=== PATIENT | male | born 1955 | race Caucasian/White ===

== ENCOUNTER 2018-12-12 09:15 | Observation (INO) | payer OTHER, SELFPAY ==
[2018-12-12] VITALS (21 sets, daily range): BP systolic 140–172; BP diastolic 58–109; PULSE 54–86; RESP 14–21; TEMP 36.4–36.9; O2SAT 95–100; BMI 29.3; BMI 30.2; BMI 30.3
--- NOTE | 2018-12-12 09:19 | EKG12_ITS ---
Test Reason : UNRESPONSIVE Blood Pressure : / mmHG Vent. Rate : 065 BPM Atrial Rate : 065 BPM P-R Int : 174 ms QRS Dur : 098 ms QT Int : 412 ms P-R-T Axes : 042 -13 -06 degrees QTc Int : 428 ms Normal sinus rhythm Minimal voltage criteria for LVH, may be normal variant Inferior infarct , age undetermined, cannot be excluded Abnormal ECG Confirmed by SAMINA PACKER, AMIRA ([id number]), business editor SIDRA SHARMA ([id number] on 12/14/2018 6:35:38 AM Referred By: Dom Esparza Confirmed By:AMIRA HAAS MD
--- NOTE | 2018-12-12 09:19 | CT_ITS ---
STUDY: CTA OF THE BRAIN REASON FOR EXAM: Male, 63 years old. Possible stroke/TIA. RADIATION DOSAGE (If Supplied By Facility): CTDIvol = ( 28.18 ) mGy, DLP = ( 726.83 ) mGycm TECHNIQUE: CT angiography was performed with a multi-detector CT scanner. Data acquisition was obtained from the skull base through the vertex following intravenous administration of 100ml IV Isovue 300. MIP images were reconstructed from the axial data set. Post-processing of the angiographic images was performed, with multiplanar reformation and 3D reconstruction. Individualized dose optimization techniques were used for this CT. COMPARISON: None. FINDINGS: Normal bilateral petrous carotid arteries. Normal right cavernous carotid artery with a normal supraclinoid bifurcation. Normal left cavernous carotid artery with a normal supraclinoid bifurcation. Normal right A1 segments of the anterior cerebral artery. Normal left A1 segments of the anterior cerebral artery. Normal intact anterior communicating artery (ACOM). Normal bilateral A2 segments of the anterior cerebral arteries. Normal right M1 and M2 segments of the middle cerebral arteries, with a normal M1 bifurcation. Normal left M1 and M2 segments of the middle cerebral arteries, with a normal M1 bifurcation. Normal right posterior communicating artery (PCOM). Normal left posterior communicating artery (PCOM). Normal bilateral vertebral arteries. Normal basilar artery with a normal basilar bifurcation. The visualized bilateral superior cerebellar (SCA) arteries are normal. Normal bilateral P1, P2 and visualized P3 segments of the posterior cerebral arteries. There is no demonstrated aneurysm of the [place]. There is no demonstrated abnormality of the visualized brain. IMPRESSION: Normal [place] without a demonstrated aneurysm or hemodynamically significant stenosis. N.B. : The above information has been verbally conveyed by Nilo Recio to Sherman Carbone on 12/12/2018 09:51:00 (ET). Electronically Signed: Nilo Recio, at 9:51 EDT , Service support , STUDY: CTA NECK WITH CONTRAST REASON FOR EXAM: Male, 63 years old. TIA/stroke. RADIATION DOSAGE (If Supplied By Facility): CTDIvol = ( 28 ) mGy, DLP = ( 726.83 ) mGycm TECHNIQUE: CT angiography with multi-detector data acquisition was performed from the aortic arch to the skull base following intravenous administration of 100ml IV Isovue 300. MIP images were reconstructed from the axial data set. Post-processing of the angiographic images was performed, with multiplanar reformation and 3D reconstruction. Individualized dose optimization techniques were used for this CT. COMPARISON: None. FINDINGS: AORTIC ARCH: Normal visualized aortic arch. Normal origins of the brachiocephalic, left common carotid, and left subclavian arteries. RIGHT CAROTID ARTERIES: Normal right common carotid artery (CCA). Normal right common carotid bulb. Normal origin of the right internal carotid (ICA) artery without a hemodynamically significant stenosis. Normal visualized cervical portion of the right internal carotid artery. Normal origin of the right external carotid artery (ECA). LEFT CAROTID ARTERIES: Normal left common carotid artery (CCA). Normal left common carotid bulb. Normal origin of the left internal carotid (ICA) artery without a hemodynamically significant stenosis. Normal visualized cervical portion of the left internal carotid artery. Normal origin of the left external carotid artery (ECA). VERTEBRAL ARTERIES: There is enhancement within the bilateral vertebral arteries with a small right vertebral artery, and a dominant left vertebral artery. CT/CTA Neck W/WO Contrast IMPRESSION: Normal bilateral cervical carotid and vertebral arteries. N.B. : The above information has been verbally conveyed by Nilo Recio to Sherman Carbone on 12/12/2018 09:51:00 (ET). Electronically Signed: Nilo Recio, at 9:52 EDT , Service support ,
--- NOTE | 2018-12-12 09:19 | CT_ITS ---
STUDY: CT BRAIN WITHOUT CONTRAST REASON FOR EXAM: Male, 63 years old. Possible stroke. RADIATION DOSAGE (If Supplied By Facility): CTDIvol = ( 44.99 ) mGy, DLP = ( 798.92 ) mGycm TECHNIQUE: Transaxial CT imaging of the brain was performed without administration of intravenous contrast material. Individualized dose optimization techniques were used for this CT. COMPARISON: No relevant priors. FINDINGS: Normal soft tissue structures. Normal calvarium. Normal size ventricles and extra-axial spaces for the patient's age. Normal white matter tracts of the cerebral hemispheres. Normal basal ganglia and thalami. Normal brainstem. Normal cerebellum. There is no intracranial hemorrhage. There are no findings of an acute ischemic infarction. Normal visualized paranasal sinuses. CT/Brain/Head without Contrast IMPRESSION: Normal unenhanced CT scan of the brain. N.B. : The above information has been verbally conveyed by Nilo Recio to Sherman Carbone on 12/12/2018 09:34:48 (ET). Electronically Signed: Nilo Recio, at 9:36 EDT , Service support ,
--- NOTE | 2018-12-12 09:19 | CT_ITS ---
STUDY: CTA OF THE BRAIN REASON FOR EXAM: Male, 63 years old. Possible stroke/TIA. RADIATION DOSAGE (If Supplied By Facility): CTDIvol = ( 28.18 ) mGy, DLP = ( 726.83 ) mGycm TECHNIQUE: CT angiography was performed with a multi-detector CT scanner. Data acquisition was obtained from the skull base through the vertex following intravenous administration of 100ml IV Isovue 300. MIP images were reconstructed from the axial data set. Post-processing of the angiographic images was performed, with multiplanar reformation and 3D reconstruction. Individualized dose optimization techniques were used for this CT. COMPARISON: None. FINDINGS: Normal bilateral petrous carotid arteries. Normal right cavernous carotid artery with a normal supraclinoid bifurcation. Normal left cavernous carotid artery with a normal supraclinoid bifurcation. Normal right A1 segments of the anterior cerebral artery. Normal left A1 segments of the anterior cerebral artery. Normal intact anterior communicating artery (ACOM). Normal bilateral A2 segments of the anterior cerebral arteries. Normal right M1 and M2 segments of the middle cerebral arteries, with a normal M1 bifurcation. Normal left M1 and M2 segments of the middle cerebral arteries, with a normal M1 bifurcation. Normal right posterior communicating artery (PCOM). Normal left posterior communicating artery (PCOM). Normal bilateral vertebral arteries. Normal basilar artery with a normal basilar bifurcation. The visualized bilateral superior cerebellar (SCA) arteries are normal. Normal bilateral P1, P2 and visualized P3 segments of the posterior cerebral arteries. There is no demonstrated aneurysm of the [place]. There is no demonstrated abnormality of the visualized brain. IMPRESSION: Normal [place] without a demonstrated aneurysm or hemodynamically significant stenosis. N.B. : The above information has been verbally conveyed by Nilo Recio to Sherman Carbone on 12/12/2018 09:51:00 (ET). Electronically Signed: Nilo Recio, at 9:51 EDT , Service support , STUDY: CTA NECK WITH CONTRAST REASON FOR EXAM: Male, 63 years old. TIA/stroke. RADIATION DOSAGE (If Supplied By Facility): CTDIvol = ( 28 ) mGy, DLP = ( 726.83 ) mGycm TECHNIQUE: CT angiography with multi-detector data acquisition was performed from the aortic arch to the skull base following intravenous administration of 100ml IV Isovue 300. MIP images were reconstructed from the axial data set. Post-processing of the angiographic images was performed, with multiplanar reformation and 3D reconstruction. Individualized dose optimization techniques were used for this CT. COMPARISON: None. FINDINGS: AORTIC ARCH: Normal visualized aortic arch. Normal origins of the brachiocephalic, left common carotid, and left subclavian arteries. RIGHT CAROTID ARTERIES: Normal right common carotid artery (CCA). Normal right common carotid bulb. Normal origin of the right internal carotid (ICA) artery without a hemodynamically significant stenosis. Normal visualized cervical portion of the right internal carotid artery. Normal origin of the right external carotid artery (ECA). LEFT CAROTID ARTERIES: Normal left common carotid artery (CCA). Normal left common carotid bulb. Normal origin of the left internal carotid (ICA) artery without a hemodynamically significant stenosis. Normal visualized cervical portion of the left internal carotid artery. Normal origin of the left external carotid artery (ECA). VERTEBRAL ARTERIES: There is enhancement within the bilateral vertebral arteries with a small right vertebral artery, and a dominant left vertebral artery. CT/CTA Head W/WO Contrast IMPRESSION: Normal bilateral cervical carotid and vertebral arteries. N.B. : The above information has been verbally conveyed by Nilo Recio to Sherman Carbone on 12/12/2018 09:51:00 (ET). Electronically Signed: Nilo Recio, at 9:52 EDT , Service support ,
--- NOTE | 2018-12-12 09:21 | ED.VIS.STROK ---
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 Patient initially was talking when paramedics arrived. Per EMS his speech was normal. His speech became abnormal and only 1 word sentences. Patient is presently nonverbal. Prior similar symptoms: No Recent Illness/Hospitalization: No - Past Medical History (1) History of BPH Status: Acute (2) History of hypercholesterolemia Status: Acute Past Medical History - Allergies and Home Meds Allergies/Adverse Reactions: Allergies No Known Allergies Allergy (Verified 12/12/18 09:43) Primary Care Physician: Dom Esparza MD [Primary Care Provider] - Prior records reviewed: Yes Lives: Spouse/ Significant Other Smoking Status: Never smoker Review of Systems ROS: Unable to Obtain Physical Exam Vital Signs/Narrative: Vital Signs Temp Pulse Resp BP Pulse Ox 12/12/18 09:16 98 F 63 20 H 168/109 H 95 Inital Vital Signs reviewed: Yes - NIH Stroke Scale 1a Level of Consciousness: 2 1b LOC Questions (Score 2 if aphasic/stupor): 2 1c LOC Commands (Only score 1st attempt): 2 2 Best Gaze (If aphasic, use reflexive mvmts.): 1 4 Facial Palsy: 0 5 Motor Arm Right (UN = amputation/fusion): 3 5 Motor Arm Left: 3 6 Motor Leg Right: 3 6 Motor Leg Left: 3 7 Limb ataxia (Only + if out of proportion): UN 8 Sensory (Aphasia/stupor=0 or 1, coma=2): 1 9 Best Language: 3 10 Dysarthria (mute, coma=2, intubated=UN): 2 11 Extinction and Inattention (only scored if +): 2 Total Score: 27 General: Well nourished, Well developed Head: Normocephalic, Atraumatic Eyes: Perrl, EOMI, - - The right eye is deviated inward. Negative doll's eyes. There is no nystagmus.. Negative for: Pale conjunctiva, Scleral icterus ENT: Moist mucous membranes, No rhinorrhea, TM's clear Neck: Supple, Nontender, No lymphadenopathy, No JVD Cardiovascular: Regular rate, Regular rhythm, No murmurs, Normal S1, Normal S2 Respiratory: No distress, CTA bilaterally Abdomen: Soft, Nontender, Nondistended, Normal bowel sounds Rectal: Deferred Back: Normal Inspection Extremities: No edema Skin: Normal color, No rash, No Trauma. Negative for: Cyanosis, Diaphoresis, Jaundice Neurological: Normal DTR - TR is 1-2+ symmetric upper and lower extremity as well as right to left. There is no clonus or Babinski sign., - - There are inconsistencies in patient's neuro exam. She has a startle response. When either the right or left hand was held above his had initially there was a drop towards his face. His arm/hand on both sides avoided striking his face, however.. Negative for: Normal Sensation - Patient does not even then grimace to noxious stimuli. Psychological: - - Able to determine Diagnostic/Tx/Re-eval Impressions Brain CT 12/12/18 09:19 IMPRESSION: Normal unenhanced CT scan of the brain. N.B. : The above information has been verbally conveyed by Nilo Recio to [facility] on 12/12/2018 09:34:48 (ET). Electronically Signed: Nilo Recio, at 9:36 EDT , Service support , ADDENDUM: 12/12/1842 IMPRESSION: Normal unenhanced CT scan of the brain. N.B. : The above information has been verbally conveyed by Nilo Recio to [facility] on 12/12/2018 09:34:48 (ET). Electronically Signed: Nilo Recio, at 9:36 EDT , Service support , Head CTA 12/12/18 09:19 IMPRESSION: Normal bilateral cervical carotid and vertebral arteries. N.B. : The above information has been verbally conveyed by Nilo Recio to [facility] on 12/12/2018 09:51:00 (ET). Electronically Signed: Nilo Recio, at 9:52 EDT , Service support , Neck CTA 12/12/18 09:19 IMPRESSION: Normal bilateral cervical carotid and vertebral arteries. N.B. : The above information has been verbally conveyed by Nilo Singhnikkinguyễn to Sherman Carbone on 12/12/2018 09:51:00 (ET). Electronically Signed: Nilo Mckeonprince, at 9:52 EDT , Service support , 12/12/18 09:19 Brain/Head without Contrast [CT] Stat CTA Head W/WO Contrast [CT] Stat CTA Neck W/WO Contrast [CT] Stat Laboratory Results 12/12/18 12/12/18 12/12/18 09:20 09:20 09:20 WBC 5.0 RBC 5.09 Hgb 15.6 Hct 45.1 MCV 88.6 MCH 30.6 MCHC 34.6 RDW 12.3 RDW Differential 39.4 Plt Count 171 MPV 11.6 Immature Gran % (Auto) 0.000 Neut % (Auto) 65.8 Lymph % (Auto) 23.8 [place] % (Auto) 7.4 Eos % (Auto) 2.4 Baso % (Auto) 0.6 Absolute Neuts (auto) 3.3 Absolute Lymphs (auto) 1.19 Total Counted Not Reportable PT 12.5 INR 1.0 APTT 25.3 Sodium 142 Potassium 4.3 Chloride 108 H Carbon Dioxide 26.0 Anion Gap 8 BUN 33 H Creatinine 1.01 Estim Creat Clear Calc 84.30 Est GFR (MDRD) Af Amer 97 Est GFR (MDRD) Non-Af 80 BUN/Creatinine Ratio 32.7 H Glucose 99 Calcium 9.0 Troponin I < 0.015 POC Glucose 12/12/18 09:35 WBC RBC Hgb Hct MCV MCH MCHC RDW RDW Differential Plt Count MPV Immature Gran % (Auto) Neut % (Auto) Lymph % (Auto) [place] % (Auto) Eos % (Auto) Baso % (Auto) Absolute Neuts (auto) Absolute Lymphs (auto) Total Counted PT INR APTT Sodium Potassium Chloride Carbon Dioxide Anion Gap BUN Creatinine Estim Creat Clear Calc Est GFR (MDRD) Af Amer Est GFR (MDRD) Non-Af BUN/Creatinine Ratio Glucose Calcium Troponin I POC Glucose 89 - Rhythm Strip Rhythm Strip: Sinus Rhythm Rate: 70 Ectopy: None - EKG Initial EKG Interpretation: Sinus Rhythm - Ventricular rate 65. [place] interval 174 ms. Cures duration 98 ms. QT interval is normal. There are flipped T waves in lead III and aVF which may represent prior ischemia. Decreased anterior force noted. - Medical Decision Making Stroke Team Activated: No - Inconsistent exam and concern for possible conversion reaction Patient had slurred/garbled speech per coworkers. This was noted while he was performing his duties at work. His speech improved rapidly. Paramedics noted speech was normal and then deteriorated. Concern patient probably/may have had a TIA. Exam at this point is inconsistent. Stroke work-up was initiated including CTA of the head and neck. I did receive a call from Dr. Barillas that the unenhanced scan was normal. I was informed at 0942 the patient was speaking. I am in the room was rubbing his face. He was not responsive. He would not look at the cards to tell me what activity was going on nor read the words. A piece of paper was obtained with alternating black and white line. Patient does track. This would indicate that patient is able to see. Uncertain if this truly represents a stroke or not. Neurologist was called. Since patient still has altered awareness will page hospitalist. I was informed by Dr. Barillas that the CTA reveals no thrombus or significant abnormality. The right vertebral artery is dominant otherwise CTA is normal. ED Disposition - Plan for ED Patient: [facility] Diagnosis: Slurred speech, Acute alteration in mental status, Hypertension, History of hypercholesterolemia Referrals: Dom Esparza MD [Primary Care Provider] -
--- NOTE | 2018-12-12 09:26 | ED.DCSUM_ITS ---
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 Patient initially was talking when paramedics arrived. Per EMS his speech was normal. His speech became abnormal and only 1 word sentences. Patient is presently nonverbal. Prior similar symptoms: No Recent Illness/Hospitalization: No - Past Medical History (1) History of BPH Status: Acute (2) History of hypercholesterolemia Status: Acute Past Medical History - Allergies and Home Meds Allergies/Adverse Reactions: Allergies No Known Allergies Allergy (Verified 12/12/18 09:43) Primary Care Physician: Dom Esparza MD [Primary Care Provider] - Prior records reviewed: Yes Lives: Spouse/ Significant Other Smoking Status: Never smoker Review of Systems ROS: Unable to Obtain Physical Exam Vital Signs/Narrative: Vital Signs Temp Pulse Resp BP Pulse Ox 12/12/18 09:16 98 F 63 20 H 168/109 H 95 Inital Vital Signs reviewed: Yes - NIH Stroke Scale 1a Level of Consciousness: 2 1b LOC Questions (Score 2 if aphasic/stupor): 2 1c LOC Commands (Only score 1st attempt): 2 2 Best Gaze (If aphasic, use reflexive mvmts.): 1 4 Facial Palsy: 0 5 Motor Arm Right (UN = amputation/fusion): 3 5 Motor Arm Left: 3 6 Motor Leg Right: 3 6 Motor Leg Left: 3 7 Limb ataxia (Only + if out of proportion): UN 8 Sensory (Aphasia/stupor=0 or 1, coma=2): 1 9 Best Language: 3 10 Dysarthria (mute, coma=2, intubated=UN): 2 11 Extinction and Inattention (only scored if +): 2 Total Score: 27 General: Well nourished, Well developed Head: Normocephalic, Atraumatic Eyes: Perrl, EOMI, - - The right eye is deviated inward. Negative doll's eyes. There is no nystagmus.. Negative for: Pale conjunctiva, Scleral icterus ENT: Moist mucous membranes, No rhinorrhea, TM's clear Neck: Supple, Nontender, No lymphadenopathy, No JVD Cardiovascular: Regular rate, Regular rhythm, No murmurs, Normal S1, Normal S2 Respiratory: No distress, CTA bilaterally Abdomen: Soft, Nontender, Nondistended, Normal bowel sounds Rectal: Deferred Back: Normal Inspection Extremities: No edema Skin: Normal color, No rash, No Trauma. Negative for: Cyanosis, Diaphoresis, Jaundice Neurological: Normal DTR - TR is 1-2+ symmetric upper and lower extremity as well as right to left. There is no clonus or Babinski sign., - - There are inconsistencies in patient's neuro exam. She has a startle response. When either the right or left hand was held above his had initially there was a drop towards his face. His arm/hand on both sides avoided striking his face, however.. Negative for: Normal Sensation - Patient does not even then grimace to noxious stimuli. Psychological: - - Able to determine Diagnostic/Tx/Re-eval Impressions Brain CT 12/12/18 09:19 IMPRESSION: Normal unenhanced CT scan of the brain. N.B. : The above information has been verbally conveyed by Nilo Recio to [facility] on 12/12/2018 09:34:48 (ET). Electronically Signed: Nilo Recio, at 9:36 EDT , Service support , ADDENDUM: 12/12/1842 IMPRESSION: Normal unenhanced CT scan of the brain. N.B. : The above information has been verbally conveyed by Nilo Recio to [facility] on 12/12/2018 09:34:48 (ET). Electronically Signed: Nilo Recio, at 9:36 EDT , Service support , Head CTA 12/12/18 09:19 IMPRESSION: Normal bilateral cervical carotid and vertebral arteries. N.B. : The above information has been verbally conveyed by Nilo Recio to [facility] on 12/12/2018 09:51:00 (ET). Electronically Signed: Nilo Recio, at 9:52 EDT , Service support , Neck CTA 12/12/18 09:19 IMPRESSION: Normal bilateral cervical carotid and vertebral arteries. N.B. : The above information has been verbally conveyed by Nilo Singhnikkinguyễn to Sherman Carbone on 12/12/2018 09:51:00 (ET). Electronically Signed: Nilo Mckeonprince, at 9:52 EDT , Service support , 12/12/18 09:19 Brain/Head without Contrast [CT] Stat CTA Head W/WO Contrast [CT] Stat CTA Neck W/WO Contrast [CT] Stat Laboratory Results 12/12/18 12/12/18 12/12/18 09:20 09:20 09:20 WBC 5.0 RBC 5.09 Hgb 15.6 Hct 45.1 MCV 88.6 MCH 30.6 MCHC 34.6 RDW 12.3 RDW Differential 39.4 Plt Count 171 MPV 11.6 Immature Gran % (Auto) 0.000 Neut % (Auto) 65.8 Lymph % (Auto) 23.8 [place] % (Auto) 7.4 Eos % (Auto) 2.4 Baso % (Auto) 0.6 Absolute Neuts (auto) 3.3 Absolute Lymphs (auto) 1.19 Total Counted Not Reportable PT 12.5 INR 1.0 APTT 25.3 Sodium 142 Potassium 4.3 Chloride 108 H Carbon Dioxide 26.0 Anion Gap 8 BUN 33 H Creatinine 1.01 Estim Creat Clear Calc 84.30 Est GFR (MDRD) Af Amer 97 Est GFR (MDRD) Non-Af 80 BUN/Creatinine Ratio 32.7 H Glucose 99 Calcium 9.0 Troponin I < 0.015 POC Glucose 12/12/18 09:35 WBC RBC Hgb Hct MCV MCH MCHC RDW RDW Differential Plt Count MPV Immature Gran % (Auto) Neut % (Auto) Lymph % (Auto) [place] % (Auto) Eos % (Auto) Baso % (Auto) Absolute Neuts (auto) Absolute Lymphs (auto) Total Counted PT INR APTT Sodium Potassium Chloride Carbon Dioxide Anion Gap BUN Creatinine Estim Creat Clear Calc Est GFR (MDRD) Af Amer Est GFR (MDRD) Non-Af BUN/Creatinine Ratio Glucose Calcium Troponin I POC Glucose 89 - Rhythm Strip Rhythm Strip: Sinus Rhythm Rate: 70 Ectopy: None - EKG Initial EKG Interpretation: Sinus Rhythm - Ventricular rate 65. [place] interval 174 ms. Cures duration 98 ms. QT interval is normal. There are flipped T waves in lead III and aVF which may represent prior ischemia. Decreased anterior force noted. - Medical Decision Making Stroke Team Activated: No - Inconsistent exam and concern for possible conversion reaction Patient had slurred/garbled speech per coworkers. This was noted while he was performing his duties at work. His speech improved rapidly. Paramedics noted speech was normal and then deteriorated. Concern patient probably/may have had a TIA. Exam at this point is inconsistent. Stroke work-up was initiated including CTA of the head and neck. I did receive a call from Dr. Barillas that the unenhanced scan was normal. I was informed at 0942 the patient was speaking. I am in the room was rubbing his face. He was not responsive. He would not look at the cards to tell me what activity was going on nor read the words. A piece of paper was obtained with alternating black and white line. Patient does track. This would indicate that patient is able to see. Uncertain if this truly represents a stroke or not. Neurologist was called. Since patient still has altered awareness will page hospitalist. I was informed by Dr. Barillas that the CTA reveals no thrombus or significant abnormality. The right vertebral artery is dominant otherwise CTA is normal. ED Disposition - Plan for ED Patient: Disposition: Acute Care [facility] Diagnosis: Slurred speech, Acute alteration in mental status, Hypertension, History of hypercholesterolemia Referrals: Dom Esparza MD [Primary Care Provider] -
[2018-12-12 09:36] LABS: Absolute Lymphocyte Count 1.19 X10^3/ul (0.83-4.51); Absolute Neutrophil Count 3.3 X10^3/uL (2.0-7.7); Basophil# 0.03 X10^3/uL; Basophil% 0.6 % (0-1); Eosinophil# 0.12 X10^3/uL; Eosinophils% 2.4 % (0-5); Hematocrit 45.1 % (40-54); Hemoglobin 15.6 g/dl (13.0-16.5); Lymphocyte # 1.19 X10^3/ul (4.0); Lymphocyte % 23.8 % (19-41); Mean Corp Hgb Conc 34.6 g/gl (32-36); Mean Corpuscular Hgb 30.6 pg (27.0-32.0); Mean Corpuscular Volume 88.6 fL (80-94); Mean Platelet Vol. 11.6 fl (6.2-12.0); Monocyte# 0.37 X10^3/uL; Monocyte% 7.4 % (0-10); Neutrophil # 3.29 X10^3/uL (2.7-7.7); Neutrophil % 65.8 % (47-70); Platelet Count 171 K/mm3 (150-450); RBC Distribution Width CV 12.3 % (11.6-14.6); RBC Distribution Width SD 39.4 fl (35.1-43.9); Red Blood Count 5.09 M/mm3 (4.6-6.2)
[2018-12-12 09:38] LABS: Prothrombin Time (Protime)PT. 12.5 SECONDS (11.7-14.9)
[2018-12-12 09:39] LABS: Partial Thromboplast Time 25.3 Seconds (24.1-36.2)
[2018-12-12 09:40] LABS: Bedside Glucose 89 mg/dL (70-110)
[2018-12-12 09:43] LABS: POSITIVE COUNT NO; POSITIVE DIFFERENTIAL NO; POSITIVE MORPHOLOGY NO
[2018-12-12 09:49] LABS: Anion Gap 8 (5-15); BUN 33 mg/dL (7-18); BUN/Creat Ratio 32.7 RATIO (10-20); Chloride 108 mmol/L (98-107); Creatinine, Serum 1.01 mg/dL (0.70-1.30); EST Glomerular Filtration Rate 80 mL/min (>60); Est Glom Filt Rate - Afr Amer 97 mL/min (>60); Glucose 99 mg/dL (74-106); Potassium 4.3 mmol/L (3.5-5.1); Sodium Level 142 mmol/L (136-145)
--- NOTE | 2018-12-12 10:15 | NURSING ---
Addendum entered by Radha Edwards 12/12/18 10:16: ALTERED LOC Original Note: PCU OBS SLURRED SPEECH, ALC SEMENTI
--- NOTE | 2018-12-12 11:42 | CON.PCM_ITS ---
Problem List (1) Slurred speech Status: Acute Reason for Consult Date of Consultation: 12/12/18 Reason for Consultation: Speech disturbances. History of Present Illness: The patient is a 63 year old M with PMH HTN, HLD, depression/anxiety requiring admission to psychiatric facility, history of DVT, BPH admitted with episode of slurred speech. History is obtained from the patient, his family as well as medical records and documentation. Per he had some episode of slurred speech this morning 12/12/2018 when he was at work which per documentation had improved by the time EMS reached to the spot and per documentation he was parked speaking normally at that time but then per the ED documentation he was speaking in one sentences or would not speak at all to the ED doc, was also tearful during the evaluation. At present he denies any dizziness, visual disturbances, speech disturbances, focal motor weakness or sensory loss. He does complain of generalized headache. Per he had an episode of nervous breakdown about 5 to 6 years ago when he was needed admission, has been working 16 hours a day for about 6 to 7 days a week, and also patient's father this September. He denies any falls, does not use cane or walker to ambulate and does drive. Per patient he is not taking any medication for depression or anxiety at present. Per he does take aspirin at baseline. CT head reported unremarkable and CTA head/neck reported no hemodynamically significant stenosis or occlusion. Past Medical History Past Medical History (Chronic Problems): Chronic Problems History of BPH (Chronic) History of hypercholesterolemia (Chronic) Hypertension (Chronic) Depression (Chronic) History of pericarditis (Chronic) Allergies No Known Allergies Allergy (Verified 12/12/18 09:43) Home Medications: Ambulatory Orders Medication Instructions Recorded Clonazepam [Klonopin] 1 mg PO QHS 03/08/15 Lovastatin [Mevacor] 20 mg PO DAILY 10/18/16 Aspirin [Aspirin, Baby] 81 mg PO DAILY@0800 12/12/18 Diclofenac Submicronized [Zorvolex] 18 mg PO BID 12/12/18 Tamsulosin HCl [Flomax] 0.4 mg PO DAILY 12/12/18 Lives: Spouse/ Significant Other Smoking Status: Never smoker Alcohol: None, Occasional Drugs: None - *Family History Maternal History Items: - - Mother committed suicide when the patient was 18 years of age and she suffered from chronic depression Paternal History Items: - - Father of prostate cancer with mets in September 2018 Offspring History Items: - - His son suffers from depression and is on chronic medication. Review of Systems Constitutional: Reports: - - Complete ROS negative except as documented in HPI Patient Problems: Active and Suspected Problems Slurred speech (Acute) Acute alteration in mental status (Acute) Dehydration (Acute) - Physical Exam General: Alert HEENT: Normocephalic Neck: Supple Lungs: Normal air movement Cardiovascular: Normal S1, Normal S2 Abdomen: Bowel Sounds Present Extremities: No cyanosis Neurological: - - Conscious, alert, CN II-XII grossly intact, power 5/5 all 4 extremities, denies any sensory loss, no cerebellar signs, gait deferred, no NR, Reflexes + B/L B/S/T/K/A Vital Signs Temp Pulse Resp BP Pulse Ox 98 F 61 18 172/97 H 99 12/12/18 09:16 12/12/18 11:30 12/12/18 11:30 12/12/18 11:30 12/12/18 11:30 Oxygen Flow Rate (L/min) 2 Oxygen Delivery Method Nasal Cannula Weight: 98.2 kg Body Mass Index (BMI) 29.3 Finger Stick Blood Glucose 89 Laboratory Tests Past 24 Hrs 12/12/18 12/12/18 12/12/18 09:20 09:20 09:20 WBC 5.0 RBC 5.09 Hgb 15.6 Hct 45.1 MCV 88.6 MCH 30.6 MCHC 34.6 RDW 12.3 RDW Differential 39.4 Plt Count 171 MPV 11.6 Immature Gran % (Auto) 0.000 Neut % (Auto) 65.8 Lymph % (Auto) 23.8 [place] % (Auto) 7.4 Eos % (Auto) 2.4 Baso % (Auto) 0.6 Absolute Neuts (auto) 3.3 Absolute Lymphs (auto) 1.19 Total Counted Not Reportable PT 12.5 INR 1.0 APTT 25.3 Sodium 142 Potassium 4.3 Chloride 108 H Carbon Dioxide 26.0 Anion Gap 8 BUN 33 H Creatinine 1.01 Estim Creat Clear Calc 84.30 Est GFR (MDRD) Af Amer 97 Est GFR (MDRD) Non-Af 80 BUN/Creatinine Ratio 32.7 H Glucose 99 Calcium 9.0 Troponin I < 0.015 POC Glucose 12/12/18 09:35 POC Glucose 89 Assessment/Plan All Active Problems Slurred speech (Acute) Acute alteration in mental status (Acute) Dehydration (Acute) The patient is a 63 year old M with PMH HTN, HLD, depression/anxiety requiring admission to psychiatric facility, history of DVT, BPH admitted with episode of slurred speech. History is obtained from the patient, his family as well as medical records and documentation. Per he had some episode of slurred speech this morning 12/12/2018 when he was at work which per documentation had improved by the time EMS reached to the spot and per documentation he was parked speaking normally at that time but then per the ED documentation he was speaking in one sentences or would not speak at all to the ED doc, was also tearful during the evaluation. At present he denies any dizziness, visual disturbances, speech disturbances, focal motor weakness or sensory loss. He does complain of generalized headache. Per he had an episode of nervous breakdown about 5 to 6 years ago when he was needed admission, has been working 16 hours a day for about 6 to 7 days a week, and also patient's father this September. He denies any falls, does not use cane or walker to ambulate and does drive. Per patient he is not taking any medication for depression or anxie ty at present. Per he does take aspirin at baseline. CT head reported unremarkable and CTA head/neck reported no hemodynamically significant stenosis or occlusion. Impression Episode of slurred speech Uncontrolled HTN Plan ?On aspirin and Lipitor ?MRI brain without contrast ?CTA head/neck?reported not to show any hemodynamically significant stenosis or occlusion ?TTE, LDL, Hba1c ?Goal blood pressure less than 130/80 mmHg and will defer to the hospitalist team for further management ?GI/DVT prophylaxis ?Fall precautions ?PT/OT/ST ?Further medical management per hospitalist recommendation ?Psychiatric consult for depression management ?Please call with questions if any ?Thank you for allowing us to participate in patient's care and management Code Visit Inpatient E&M: [id number] Init Hosp L3
--- NOTE | 2018-12-12 11:59 | CASEMGMT ---
Social Work Note Date and Time of Referral: 12/12/2018 Referred By: Verbal discussion with ED physician Date and Time of Intervention: 12/12/2018 1130 in the Emergency Department Reason for Referral: TIA symptoms; PHQ9 depression screening Informant: medical record and patient himself; patient's and oldest son present for end of conversation Personal Status Living Arrangements: With in own home. Education/Learning: Able to read, write and to understand what is read; no identified barriers at prior level of functioning. Employment: [employer] for the last 1 year. : not addressed Family Dynamics/Relationships: Lives with of 40 years and describes as a good girl. Patient and have 4 children and 9 grandchildren. Support System: , children Medical History and Functioning: Medical History and Reason for admission: per ED physician report - Slurred speech, Acute alteration in mental status, Hypertension, History of hypercholesterolemia ADLs prior to admission: Independent prior to arrival, still works, drives and cares for own personal needs. DME used: none reported or indicated. Programs/Agencies Involved: None reported or indicated other than primary care doctor, Dr. Esparza at [facility]. Mental Health History and Current Cognitive Status Diagnoses: no reported diagnoses. PHQ9 depression screen performed in the ED and score is a 4, showing mild depression symptoms present. Current Stressors/Life Changes: Patient reports patient's father in September after several year coley with cancer. Patient states however this is not something patient thinks about unless others bring the subject up. Patient states that sees his father's as closure. Patient alludes to a tenuous relationship with his father during the father's life. SI or HI: Denies any history of such. Direct eye contact and firm voice when stating that has never thought of dying or suicide. Current Cognitive/Mental Status: Alert and oriented to person, place, situation. Patient pleasant and cooperative with social work visit, answered questions but not real talkative. Patient did have to take some time, and eventually did in finding his words to explain that when patient is not busy, or has nothing to do, then motivation and feeling tired is sometimes an issue for patient. Patient?s Identified Concerns: expresses concern for patient and that wants to get to the bottom of why patient has such symptoms leading up to ED visit. reports gratefulness that patient is being admitted to rule out medical issues as wants to make sure nothing is being missed, and made comment that if issues end up not being medical then will have to address the nonmedical issues as well if indicated. Interventions: Supportive listening and encouragement offered to patient and family. Educated to available of RN CM and social work availability if needs are present for home going. Handoff to PCU assigned social media director Yoon Gudino that patient still needs the PHQ9 resources guide given prior to home going. Educated patient and family that a social media director would bring the resources guide by prior to discharge so that if patient needs or desires more support in the future that resource information would be available. Plan: Home with . PHQ9 resource guide will be given prior to home going. Not anticipating any other social service needs but social work does remain available should needs arise. -ULISES Healy, MOSAIC TILER
--- NOTE | 2018-12-12 12:22 | MRI_ITS ---
STUDY: MRI BRAIN WITHOUT CONTRAST REASON FOR EXAM: Male, 63 years old. CVA TECHNIQUE: Standardized multiplanar fat and water weighted pulse sequences were obtained. COMPARISON: CT head 12/12/2018. FINDINGS: Normal size of the ventricles and extra-axial spaces for the patient's age. Normal white matter tracts of the supratentorial brain. Normal bilateral basal ganglia. Normal thalami. There is no extra-axial fluid accumulation. The diffusion-weighted sequence is normal. Normal flow voids within the major intracranial circulation suggesting patency by spin echo criteria. Normal sella turcica, pituitary gland, infundibular stalk, optic chiasm and hypothalamus. Normal tectal plate and pineal gland. Normal midbrain, connor and medulla. Normal cerebellum. Normal basal cisterns. Normal bilateral temporal bones. Normal bilateral internal auditory canals. No demonstrated orbital abnormality, within the constraints of a routine brain study. Normal visualized paranasal sinuses. Normal calvarium and skull base. Normal visualized soft tissue structures. Normal visualized upper cervical spine. There is a stable right mastoid effusion. There is mild edema of the turbinates. Minimal mucosal thickening within the paranasal sinuses. MRI/Brain without Contrast IMPRESSION: No acute findings, the diffusion-weighted sequence is normal. There is no MRI evidence for acute infarct Small right mastoid effusion Mild inflammatory changes within the paranasal sinuses Electronically Signed: Dom Jacobson, at 16:51 EDT Tel , Service support ,
--- NOTE | 2018-12-12 12:22 | MRI_ITS ---
STUDY: MRI CERVICAL SPINE WITHOUT CONTRAST REASON FOR EXAM: Male, 63 years old. Neck pain, left arm paresthesia TECHNIQUE: Standardized fat and water weighted pulse sequences were obtained in the sagittal and axial planes. COMPARISON: None FINDINGS: Normal foramen magnum and brainstem-cervical cord junction. Normal craniovertebral junction. Normal anterior atlantoaxial articulation. Normal odontoid process. Normal cervical lordosis. Normal vertebral bodies and posterior osseous elements. There is a posterior bulging annulus at C7-T1. C2-3: There is mild posterior bulging annulus. There is uncinate hypertrophy. There is no central canal or foraminal stenosis C3-4: Normal endplates. Normal disc height, signal and morphology. Normal central canal and intervertebral neural foramina. There is mild to moderate facet spondylosis and mild uncinate hypertrophy C4-5: There is mild disc space narrowing. No disc protrusion or central canal stenosis. There is uncinate hypertrophy with moderate facet degenerative changes. There is no right foraminal stenosis. There is mild to moderate left foraminal stenosis C5-6: There is no disc protrusion. There is minimal posterior bulging annulus. There is no central canal stenosis. There is uncinate hypertrophy and moderate facet degenerative changes. There is no central canal or right foraminal stenosis. There is mild left foraminal stenosis C6-7: There is mild posterior bulging annulus. There is no central canal stenosis. Uncinate hypertrophy and facet degenerative changes. No right foraminal stenosis. There is mild left foraminal stenosis. There is mild irregularity, with Schmorl's node through the superior endplate of C7. C7-T1: Normal endplates. Normal disc height, signal and morphology. Normal central canal and intervertebral neural foramina. Normal cervical cord. Normal visualized soft tissue structures. MRI/Spine Cervical (Routine) IMPRESSION: Multilevel spondylosis no acute fractures as above. Electronically Signed: Dom Jacobson, at 18:31 EDT Tel , Service support ,
--- NOTE | 2018-12-12 12:29 | PCM.HP.STD ---
Problem List (1) Depression Status: Chronic (2) Dehydration Status: Acute (3) Acute alteration in mental status Status: Acute (4) History of hypercholesterolemia Status: Chronic (5) Slurred speech Status: Acute (6) Hypertension Status: Chronic (7) History of BPH Status: Chronic (8) History of pericarditis Status: Chronic History of Present Illness Date of Admission: 12/12/18 Chief Complaint: slurred speech and altered level of consciousness The patient is a 63 year old M with a past medical history of hypertension, severe depression requiring admission to a psychiatric facility, BPH and hyperlipidemia who had an episode of slurred speech at work today. EMS was called and when they arrived he was speaking normally but, he then began speaking in 1 word sentences and would not speak to the ER doc. vital signs at presentation to the emergency room were temp of 98 ?F, pulse rate 63, blood pressure 168/109, respiratory rate 20 and he was 95% saturated on room air. An emergent CT brain showed no intracranial bleeding or evidence of ischemic stroke. CTA of the brain and neck showed no evidence of aneurysm or significant arterial stenosis. Review of the labs shows a normal CBC and a normal PT and PTT. Electrolytes are unremarkable but the BUN is elevated at 33 with a creatinine of 1.01 and the patient admits to poor appetite recently. Troponin was less than 0.015. He later began to talk and move by himself although speech was slow and so were his movements. His NIH was 0 prior to arriving on PCU. He has a hx of major depression in the past and 5 years ago was hospitalized for a nervous breakdown. He had been on escitalopram but stopped this on his own in 2017. His father in September of metastatic prostate cancer. He has been working 14-15 hour shifts at work. He is sleeping more and also c/o of pain. He is irritable and having trouble with his appetite. He is also having trouble with memory. He denies any suicidal ideation or homicidal ideation. He is also c/o episodic left arm pain with paresthesias in the left hand. He is awakened from sleep with this and it also occurs when driving. The more I talked with him the more conversant and animated he became. He was tearful at times. He was admitted to PCU for observation for slurred speech and altered mental status to r/o CVA. H e was seen and evaluated by Dr. Coombs in the ED. I discussed with him and he feels the patient may be having a conversion reaction but recommended MRI to r/o CVA. Past Medical History Past Medical History (Chronic Problems): Chronic Problems History of BPH (Chronic) History of hypercholesterolemia (Chronic) Hypertension (Chronic) Depression (Chronic) History of pericarditis (Chronic) Allergies No Known Allergies Allergy (Verified 12/12/18 09:43) Home Medications: Ambulatory Orders Medication Instructions Recorded Clonazepam [Klonopin] 1 mg PO QHS 03/08/15 Lovastatin [Mevacor] 20 mg PO DAILY 10/18/16 Aspirin [Aspirin, Baby] 81 mg PO DAILY@0800 12/12/18 Diclofenac Submicronized [Zorvolex] 18 mg PO BID 12/12/18 Tamsulosin HCl [Flomax] 0.4 mg PO DAILY 12/12/18 Surgical History: - - urban inserted in the low back around 2006 Psychiatric History: Depression - has been admitted to a psychiatric hospital in the past for nervous breakdown. Has been treated for depression Lives: Spouse/ Significant Other Smoking Status: Never smoker Tobacco Use: Non-smoker Alcohol: None Drugs: None, - - he is prescribed Klonopin at bedtime - *Family History Maternal History Items: - - Mother committed suicide when the patient was 18 years of age and she suffered from chronic depression Paternal History Items: - - Father of prostate cancer with mets in September 2018 Offspring History Items: - - His son suffers from depression and is on chronic medication. Review of Systems Constitutional: Reports: Anorexia. Denies: Chills, Fever, Weight Change Eyes: Denies: Blurred vision HEENT: Reports: Head Aches - frequent, always on the left side and they are associated with photophobia, no aura, resolve with sleep. Has been diagnosed with cluster RUVALCABA's in the past. Denies: Sinus Congestion, Sinus Drainage, Sore Throat, Visual Changes Cardiovascular: Reports: Light Headedness - at times, Palpitations - racing heart, -. Denies: Chest Pain, Claudication, Edema Respiratory: Denies: Cough, Hemoptysis, Pleuritic Pain, Shortness of breath at rest, Shortness of breath upon exertion, Sputum production, Wheezing Gastrointestinal: Denies: Abdominal Pain, Diarrhea, Nausea, Vomiting Genitourinary: Denies: Dysuria Musculoskeletal: Reports: - - c/o Left arm pain that is associated with paresthesias in left hand. The pain and numbness wake him from sleep at night and also happens when he is driving. 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 Denies: Joint Pain, Joint Tenderness Skin: Denies: Rash, Wounds Neurological: Reports: Slurred speech, Headaches, Numbness - Left hand. Denies: Balance problems, Blurred vision, Focal weakness, Tingling, Tremor, Seizures Psychiatric: Denies: Anxiety, Depression, Homicidal Ideations, Suicidal Ideations Endocrine: Denies: Change in Body Habitus Hematologic/ Lymphatic: Reports: Hx of blood clot - he has had a blood clot in the left leg many years years ago. Denies: Easy Bruising, Easy Bleeding VTE Information - Inpt Only VTE Present on Admission: No VTE Mechan Device Prophylaxis: SCD's VTE Pharm Prophylaxis ordered?: Yes Patient Problems: Active and Suspected Problems Slurred speech (Acute) Acute alteration in mental status (Acute) Dehydration (Acute) - Physical Exam General: Oriented x3, Cooperative, Well developed, Well nourished, - - slow to answer questions, tearful at times, flat affect, does not appear to be in any physical distress HEENT: Atraumatic, PERRLA, EOMI, Normocephalic Oral: Dry Mucosa Neck: Supple, No JVD, Negative Carotid Bruits, No Nodes, No Nuchal Rigidity, Trachea Midline Lungs: Clear to auscultation Cardiovascular: Regular rate, Regular Rhythm, Normal S1, Normal S2, No murmurs, No rub noted, No Gallop Abdomen: Bowel Sounds Present, Soft, Non Tender, Non-Distended Extremities: No clubbing, No cyanosis, No edema, No Calf Tenderness, Peripheral Pulses Normal Skin: No rashes, No breakdown Musculoskeletal: - - he has tenderness that starts in the upper left arm, medial surface, and it radiates down the left arm and is associated with numbness in the left hand Neurological: Cranial nerves II-XII grossly intact, Neuro grossly intact, - - NIH is 0 Psych/Mental Status: Flat Affect Vital Signs Temp Pulse Resp BP Pulse Ox 98 F 61 18 172/97 H 99 12/12/18 09:16 12/12/18 11:30 12/12/18 11:30 12/12/18 11:30 12/12/18 11:30 Oxygen Flow Rate (L/min) 2 Oxygen Delivery Method Nasal Cannula Weight: 205 lb 1.6 oz Body Mass Index (BMI) 30.2 Finger Stick Blood Glucose 89 Laboratory Tests Past 24 Hrs 12/12/18 12/12/18 12/12/18 09:20 09:20 09:20 WBC 5.0 RBC 5.09 Hgb 15.6 Hct 45.1 MCV 88.6 MCH 30.6 MCHC 34.6 RDW 12.3 RDW Differential 39.4 Plt Count 171 MPV 11.6 Immature Gran % (Auto) 0.000 Neut % (Auto) 65.8 Lymph % (Auto) 23.8 [place] % (Auto) 7.4 Eos % (Auto) 2.4 Baso % (Auto) 0.6 Absolute Neuts (auto) 3.3 Absolute Lymphs (auto) 1.19 Total Counted Not Reportable PT 12.5 INR 1.0 APTT 25.3 Sodium 142 Potassium 4.3 Chloride 108 H Carbon Dioxide 26.0 Anion Gap 8 BUN 33 H Creatinine 1.01 Estim Creat Clear Calc 84.30 Est GFR (MDRD) Af Amer 97 Est GFR (MDRD) Non-Af 80 BUN/Creatinine Ratio 32.7 H Glucose 99 Calcium 9.0 Troponin I < 0.015 Ethyl Alcohol 12/12/18 12/12/18 12:01 12:01 WBC RBC Hgb Hct MCV MCH MCHC RDW RDW Differential Plt Count MPV Immature Gran % (Auto) Neut % (Auto) Lymph % (Auto) [place] % (Auto) Eos % (Auto) Baso % (Auto) Absolute Neuts (auto) Absolute Lymphs (auto) Total Counted PT INR APTT Sodium Potassium Chloride Carbon Dioxide Anion Gap BUN Creatinine Estim Creat Clear Calc Est GFR (MDRD) Af Amer Est GFR (MDRD) Non-Af BUN/Creatinine Ratio Glucose Calcium Troponin I Pending Ethyl Alcohol Pending POC Glucose 12/12/18 09:35 POC Glucose 89 Assessment/Plan All Active Problems Slurred speech (Acute) Acute alteration in mental status (Acute) Dehydration (Acute) Impressions 1. episodic slurred speech 2. AMS - etiology? 3. suspected severe recurrent depression 4. HTN - elevated today.....do not tx unless the MRI is negative for CVA 5. Left UE pain and paresthesias - episodic and increases with driving and it awakes him at night. possible CTS vs cervical Nerve impingement 6. BPH-on Flomax MRI of the head and the cervical spine Stroke protocol initiated Discussed with Dr. Coombs - if the MRI is negative would favor a conversion reaction. Start Escitalopram Code Visit OBSV E&M: [id number] Initial observation care L3
--- NOTE | 2018-12-12 12:50 | CASEMGMT ---
Social Work PCU Per , advanced directives are in place, completed years ago at their tax associate attorney's office. agrees to bring advanced directives in at next visit, so that forms can be scanned into the medical record. -ULISES Healy, SORT LINE WORKER
[2018-12-12 13:34] LABS: AST(SGOT) 19 U/L (15-37); Alanine Aminotransfer ALT/SGPT 39 U/L (16-61); Albumin, Serum 3.4 g/dL (3.2-5.0); Alkaline Phosphatase 91 U/L (45-117); Bilirubin, Direct 0.11 mg/dL (0.00-0.30); Globulin 3.5 g/dL (2.2-4.2); Protein, Total 6.9 g/dL (6.4-8.2)
[2018-12-12] MEDS: 0.9% Normal Saline 1,000 ML 999 ML IV (13:52)
[2018-12-12] MEDS: Escitalopram Oxalate 10 MG Tablet PO (16:10)
[2018-12-12] MEDS: 0.9% Normal Saline 1,000 ML 125 ML IV (16:32)
--- NOTE | 2018-12-12 17:03 | ECHOD_ITS ---
Reason For Study: ARRHYTHMIA, SYNCOPE, ? TIA Procedure This was a 2D Doppler, Color Flow transthoracic echocardiogram. Exam performed portable in patient room. Left Ventricle Normal LV size. Left ventricular systolic function is normal. The estimated ejection fraction is 60 %. Transmitral doppler flow suggestive of impaired relaxation of left ventricle. No regional wall motion abnormalities noted. Right Ventricle Normal RV size. Normal systolic function. Atria The left atrium is mildly enlarged. Normal right atrium. No doppler evidence for ASD. Bubble contrast study negative for right to left interatrial shunt. Mitral Valve There is no mitral annular calcification. Normal mitral valve. Trivial mitral valve insufficiency. Tricuspid Valve Normal tricuspid valve. Trivial tricuspid valve insufficiency. Right ventricular systolic pressure estimated to be 22 mmHg. Aortic Valve Trisinus/trileaflet aortic valve. Normal aortic valve. Trivial aortic valve insufficiency. Pulmonic Valve Normal pulmonic valve. Trivial pulmonic valve insufficiency. Great Vessels Mildly dilated aortic root. Pericardium/Pleural No pericardial effusion. Medication Performed a rapid injection of agitated mix of 9 cc saline and 1cc air to assess for atrial septal defect. MMode/2D Measurements & Calculations LVIDd: 5.1 cm IVSd: 1.1 cm Ao root diam: 4.2 cm LVIDs: 3.5 cm LVPWd: 0.95 cm RVDd: 3.3 cm FS: 31.2 % LAV(MOD-bp): 56.3 ml LA A4 area: 18.4 cm2 LA dimension(2D): 4.6 cm LAV(MOD-bp) Indexed: 26.9 ml/m2 LAV(MOD-sp2): 56.3 ml LAV(MOD-sp4): 56.1 ml RA A4 area: 15.7 cm2 Time Measurements MV dec time: 0.17 sec Doppler Measurements & Calculations MV E max hemanth: 76.9 cm/sec Lat Peak E' Hemanth: 8.9 cm/sec Med Peak E' Hemanth: 6.1 cm/sec MV A max hemanth: 102.6 cm/sec E/E' lat: 8.6 E/E' med: 12.6 MV E/A: 0.75 Ao V2 max: 107.0 cm/sec LV V1 max: 94.1 cm/sec PA V2 max: 79.4 cm/sec Ao max P.6 mmHg LV V1 max P.5 mmHg TR max hemanth: 215.2 cm/sec TR max P.5 mmHg Interpretation Summary Left ventricular systolic function is normal. The estimated ejection fraction is 60 %. The left atrium is mildly enlarged. Trivial mitral valve insufficiency. Trivial tricuspid valve insufficiency. Trivial aortic valve insufficiency. Trivial pulmonic valve insufficiency. Mildly dilated aortic root. Right ventricular systolic pressure estimated to be 22 mmHg. Transmitral doppler flow suggestive of impaired relaxation of left ventricle Bubble contrast study negative for right to left interatrial shunt. Ordering Physician: Lisa Salazar Referring Physician: Dom Esparza Performed By: Damaris Salmeron RDCS, RVT
[2018-12-12] MEDS: 0.9% NaCl Peripheral Flush Adult/Peds IV (21:21)
[2018-12-12] MEDS: Ketorolac 15 MG/ML Vial IV (21:21)
[2018-12-12] MEDS: Heparin Injection (Vial) 5,000 UNIT/ML VIAL 5000 UNIT SC (21:21)
[2018-12-12] MEDS: clonazePAM 1 MG Tablet PO (21:21)
[2018-12-12] MEDS: Atorvastatin Calcium 10 MG Tablet 5 MG PO (21:21)
[2018-12-13] VITALS (13 sets, daily range): BP systolic 133–152; BP diastolic 86–100; PULSE 53–73; RESP 16–20; TEMP 36.6–37; O2SAT 94–95; BMI 30.2
--- NOTE | 2018-12-13 | RAD_ITS ---
STUDY: SWALLOWING STUDY REASON FOR EXAM: Male, 63 years old. Dysphasia. TECHNIQUE: The examination was performed with Speech Pathology in attendance. Under fluoroscopic observation, the patient ingested thin barium, thick barium, barium pudding, and barium coated cracker. FLUOROSCOPY TIME: 2:18 minutes/seconds. 1955 fluoroscopic images were obtained. RADIOLOGIST INVOLVEMENT: Radiologist was present and providing direct supervision. COMPARISON: None. FINDINGS: The following was observed during swallowing of the various mixtures of barium: Thin Barium: Silent aspiration with ingestion of thin liquids. Thick Barium: Penetration with ingestion of nectar thickened liquids. Barium Pudding: There was no evidence of aspiration or laryngeal penetration. Barium Coated Cracker: There was no evidence of aspiration or laryngeal penetration. RAD/Swallowing Function w/Video IMPRESSION: Silent aspiration with ingestion of thin liquids. Penetration with ingestion of nectar thickened liquids. The swallow study findings were discussed with the patient by the speech pathologist at the conclusion of the examination. Please see speech pathology report for more information and recommendations. Electronically Signed: Nilo Recio, at 14:16 EDT , Service support ,
[2018-12-13] MEDS: 0.9% Normal Saline 1,000 ML 125 ML IV ×3 (00:16→16:30)
[2018-12-13 05:01] LABS: Amphetamine Urine VISTA NEGATIVE (<1000 ng/mL); Barbiturate Urine VISTA NEGATIVE (< 200 ng/mL); Benzodiazepine Urine VISTA NEGATIVE (< 200 ng/mL); Cocaine Urine VISTA NEGATIVE (< 300 ng/mL); Ecstacy Urine VISTA NEGATIVE (< 500 ng/mL); Methadone Urine VISTA NEGATIVE (< 300 ng/mL); PCP Urine VISTA NEGATIVE (< 25 ng/mL); THC Urine VISTA NEGATIVE (< 50 ng/mL); Vista UDS pH Range 6
[2018-12-13 06:40] LABS: Hematocrit 42.2 % (40-54); Hemoglobin 14.2 g/dl (13.0-16.5); Mean Corp Hgb Conc 33.6 g/gl (32-36); Mean Corpuscular Hgb 30.2 pg (27.0-32.0); Mean Corpuscular Volume 89.8 fL (80-94); Mean Platelet Vol. 11.7 fl (6.2-12.0); Platelet Count 160 K/mm3 (150-450); RBC Distribution Width CV 12.4 % (11.6-14.6); White Blood Count 4.4 K/mm3 (4.4-11.0)
[2018-12-13 06:41] LABS: Scan Indicated on CBC? Y/N NO
[2018-12-13 06:58] LABS: AST(SGOT) 18 U/L (15-37); Alanine Aminotransfer ALT/SGPT 34 U/L (16-61); Alkaline Phosphatase 87 U/L (45-117); Anion Gap 9 (5-15); BUN 19 mg/dL (7-18); BUN/Creat Ratio 23.7 RATIO (10-20); Calcium,Total 8.4 mg/dL (8.5-10.1); Chloride 112 mmol/L (98-107); Cholesterol 165 mg/dL (200); EST Glomerular Filtration Rate 104 mL/min (>60); Est Glom Filt Rate - Afr Amer 126 mL/min (>60); Estimated Creatinine Clearance 96.97 ml/min; Globulin 3.1 g/dL (2.2-4.2); Glucose 91 mg/dL (74-106); High Density Lipoprotein 45 mg/dL; Magnesium 2.2 mg/dL (1.6-2.6); Phosphorus 2.7 mg/dL (2.5-4.9); Potassium 4.1 mmol/L (3.5-5.1); Protein, Total 6.1 g/dL (6.4-8.2); Sodium Level 144 mmol/L (136-145); Triglycerides 115 mg/dL; Very Low Density Lipoprotein 23 mg/dL (5-40)
[2018-12-13] MEDS: Aspirin 81 MG TAB.CHEW PO (07:57)
[2018-12-13] MEDS: Escitalopram Oxalate 10 MG Tablet PO (07:57)
[2018-12-13] MEDS: Tamsulosin HCl 0.4 MG Capsule PO (07:57)
[2018-12-13] MEDS: Heparin Injection (Vial) 5,000 UNIT/ML VIAL 5000 UNIT SC ×2 (09:25→21:04)
--- NOTE | 2018-12-13 11:11 | PN.NEURO_ITS ---
Patient Problems: Active and Suspected Problems Slurred speech (Acute) Acute alteration in mental status (Acute) Dehydration (Acute) Subjective: No Issues overnight. Patient denies any RUVALCABA at present. MRI brain w/o contrast reported nothing acute. CTA head/neck- no hemodynamically significant stenosis or occlusion. MRI C spine w/o contrast multilevel spondylosis. Patient had some swallowing issues, MBS scheduled, ST consulted. - Physical Exam General: Alert HEENT: Normocephalic Neck: Supple Lungs: Normal air movement Cardiovascular: Normal S1, Normal S2 Abdomen: Bowel Sounds Present Extremities: No cyanosis Neurological: - - consious, alert, CN 2-12 grossly intact, power 5/5 all 4 extremities, no sensory loss, no cerebellar signs, Reflexes + B/L B/S/T/K/A, gait deferred Vital Signs Temp Pulse Resp BP Pulse Ox 98.6 F 57 L 20 H 135/86 H 94 12/13/18 07:48 12/13/18 07:48 12/13/18 07:48 12/13/18 07:48 12/13/18 07:48 Oxygen Flow Rate (L/min) 2 Oxygen Delivery Method Room Air Weight: 93.032 kg Body Mass Index (BMI) 30.2 Finger Stick Blood Glucose 89 Orthostatic Vital Signs Start: 12/12/18 12:28 Freq: q24h Status: Active Protocol: Activity Type Activity Date Activity User E-Sign Co-Sign Detail Recorded Client Recorded Date Recorded By Document 12/13/18 03:14 [facility] [id number] 12/13/18 03:20 [facility] 12/13/18 03:14 Orthostatic Vitals Standing -Blood Pressure (90/60-120/80) 151/100 H -Extremity Use Right Arm -Pulse Rate (60-100) 73 Sitting -Blood Pressure (90/60-120/80) 152/97 H -Extremity Use Right Arm -Pulse Rate (60-100) 59 L Lying -Blood Pressure (90/60-120/80) 148/88 H -Extremity Use Right Arm -Pulse Rate (60-100) 58 L Intake and Output for Last 24 Hours 12/11/18 12/12/18 12/13/18 23:59 23:59 23:59 Intake Total 3028 / 3028 780 / 780 Balance 3028 / 3028 780 / 780 Laboratory Tests Past 24 Hrs 06/11/2512/12/18 12/12/18 12:01 12:01 12:01 WBC RBC Hgb Hct MCV MCH MCHC RDW RDW Differential Plt Count MPV Sodium Potassium Chloride Carbon Dioxide Anion Gap BUN Creatinine Estim Creat Clear Calc Est GFR (MDRD) Af Amer Est GFR (MDRD) Non-Af BUN/Creatinine Ratio Glucose Calcium Phosphorus Magnesium Total Bilirubin 0.50 Direct Bilirubin 0.11 AST 19 ALT 39 Alkaline Phosphatase 91 Troponin I < 0.015 Total Protein 6.9 Albumin 3.4 Globulin 3.5 Albumin/Globulin Ratio Triglycerides Cholesterol LDL Cholesterol VLDL Cholesterol HDL Cholesterol TSH 0.80 Urine Opiates Screen Urine Methadone Screen Ur Barbiturates Screen Ur Phencyclidine Scrn Ur Amphetamines Screen U Methamphetamin-MDMA U Benzodiazepines Scrn Urine Cocaine Screen U Cannabinoids Screen Ur Drug Screen Comment Ethyl Alcohol 4.0 12/13/18 12/13/18 12/13/18 03:20 06:00 06:00 WBC 4.4 RBC 4.70 Hgb 14.2 Hct 42.2 MCV 89.8 MCH 30.2 MCHC 33.6 RDW 12.4 RDW Differential 40.0 Plt Count 160 MPV 11.7 Sodium 144 Potassium 4.1 Chloride 112 H Carbon Dioxide 23.0 Anion Gap 9 BUN 19 H Creatinine 0.80 Estim Creat Clear Calc 96.97 Est GFR (MDRD) Af Amer 126 Est GFR (MDRD) Non-Af 104 BUN/Creatinine Ratio 23.7 H Glucose 91 Calcium 8.4 L Phosphorus 2.7 Magnesium 2.2 Total Bilirubin 0.80 Direct Bilirubin AST 18 ALT 34 Alkaline Phosphatase 87 Troponin I Total Protein 6.1 L Albumin 3.0 L Globulin 3.1 Albumin/Globulin Ratio 1.0 Triglycerides 115 Cholesterol 165 LDL Cholesterol 97 VLDL Cholesterol 23 HDL Cholesterol 45 TSH Urine Opiates Screen NEGATIVE Urine Methadone Screen NEGATIVE Ur Barbiturates Screen NEGATIVE Ur Phencyclidine Scrn NEGATIVE Ur Amphetamines Screen NEGATIVE U Methamphetamin-MDMA NEGATIVE U Benzodiazepines Scrn NEGATIVE Urine Cocaine Screen NEGATIVE U Cannabinoids Screen NEGATIVE Ur Drug Screen Comment Ethyl Alcohol Medical Necessity - Tobacco Use Smoking Status: Never smoker Tobacco Use: Non-smoker Assessment/Plan All Active Problems Slurred speech (Acute) Acute alteration in mental status (Acute) Dehydration (Acute) The patient is a 63 year old M with PMH HTN, HLD, depression/anxiety requiring admission to psychiatric facility, history of DVT, BPH admitted with episode of slurred speech. History is obtained from the patient, his family as well as medical records and documentation. Per he had some episode of slurred speech this morning 12/12/2018 when he was at work which per documentation had improved by the time EMS reached to the spot and per documentation he was parked speaking normally at that time but then per the ED documentation he was speaking in one sentences or would not speak at all to the ED doc, was also tearful duri ng the evaluation. At present he denies any dizziness, visual disturbances, speech disturbances, focal motor weakness or sensory loss. He does complain of generalized headache. Per he had an episode of nervous breakdown about 5 to 6 years ago when he was needed admission, has been working 16 hours a day for about 6 to 7 days a week, and also patient's father this September. He denies any falls, does not use cane or walker to ambulate and does drive. Per patient he is not taking any medication for depression or anxiety at present. Per he does take aspirin at baseline. CT head reported unremarkable and CTA head/neck reported no hemodynamically significant stenosis or occlusion. Impression Episode of slurred speech Uncontrolled HTN Possible conversion d/o-stress Plan ?On aspirin and Lipitor ?MRI brain without contrast-reported nothing acute ?CTA head/neck?reported not to show any hemodynamically significant stenosis or occlusion ?TTE-EF 60%, mildly enlarged LA, no PFO. LDL-97, [id number] ?Goal blood pressure less than 130/80 mmHg and will defer to the hospitalist team for further management ?GI/DVT prophylaxis ?Fall precautions ?PT/OT/ST ?Further medical management per hospitalist recommendation ?Psychiatric consult for depression management ?Please call with questions if any ?Thank you for allowing us to participate in patient's care and management
--- NOTE | 2018-12-13 11:24 | CASEMGMT ---
RUSSEL printed off a list of mental health providers in network with patient's insurance. SW went to patient's room to give him this list and he was sleeping. SW spoke with patient's and let her know about list. She said she and patient have talked a little bit about his Depression. She said he usually tries to avoid talking about it. She said there is a family history. She thanked SW for the list of providers. Yoon COOPER MSW
--- NOTE | 2018-12-13 16:47 | PCM.CONS.B ---
- Consult Date of Consult: 12/13/18 - Reason for Consult Chief Complaint: dysphagia, emesis History of Present Illness: 63 y/o WM admitted to hospital for rule out CVA. 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 Complains of dysphagia and sometimes regurgitation of food. Concern for risk of aspiration pneumonia. Denies TOB use Denies history of PUD Has noted above symptoms for years Denies weight loss. Denies abdominal pain at present Past Medical History: hypertension benign prostate hypertrophy depression Past Surgical History: back surgery multiple skin excisions Medications: klonopin mevacor zorvolex lexapro flomax Allergies: Has no known drug allergies Social history: TOB use denies Review of Systems: General - denies fevers, denies anorexia Cardiovascular denies chest pain, denies history of heart attack Pulmonary denies shortness of breath, denies coughing up blood Gastrointestinal as per HPI, denies blood in stools Neurological has headahces, denies seizures, denies history of stroke Genitourinary denies burning with urination, denies blood in urine Hematological denies spontaneous/prolonged bleeding Skin denies open non healing wounds Musculoskeletal left arm pain occasionally Endocrine denies diabetes Psychological has depression, denies hallucinations Physical examination: Vital signs Temp 98.1F HR 64 General WD/WN WM in no apparent distress, alert and oriented, not septic appearing HEENT Normocephalic. EOM intact with sclera clear and no icterus noted. Neck is supple with no jugular venous distention noted. Trachea is midline. Lungs normal breath sounds in all lung martínez. No rales/rhonchi/wheezing noted. No labored breathing noted, such as retractions. No cough heard. Heart normal S1 and S2 auscultated. No rubs/clicks/murmurs noted. Normal size and location by auscultation. Abdomen soft and benign. Normal bowel sounds Extremities no calf tenderness noted. No pitting edema noted. . Genitourinary/Rectal deferred Skin no rashes noted. Normal skin integrity. Neurological gait normal, no focal deficits noted. Psychological normal affect, patient is calm and appropriate Impression: dysphagia acid indigestion/heartburn Discussion/Plan: I have discussed the above with the patient, and his who is present with him. I have offered esophagogastroduodenoscopy, possible biopsies for evaluation. I have explained the procedure to the patient. I have counseled the patient as to the risks of the procedure, including but not limited to: infection, bleeding, perforation of the GI tract, complications of anesthesia, etc. the patient understands. He wishes to proceed. I have answered all questions to the patient?s satisfaction and the patient has no further questions.
--- NOTE | 2018-12-13 20:41 | PCM.PROGNOTE ---
Patient Problems: Active and Suspected Problems Slurred speech (Acute) Acute alteration in mental status (Acute) Dehydration (Acute) Subjective: Blood pressures have improved since yesterday and have ranged from 135/86-140 8/88 today. Telemetry shows normal sinus rhythm with no significant ectopy and no atrial fibrillation The echocardiogram shows a normal left ventricular ejection fraction at 60% with no regional wall motion abnormalities. The left atrium is mildly enlarged. There is no significant valvular heart disease. The right ventricular systolic pressure was normal at 22. The bubble contrast study was negative for a right to left intra-atrial shunt. All lab was personally reviewed. CBC is normal. The creatinine has decreased to 0.8 from 1.01 at admission and the BUN is 19 today, down from 33 at admission. Urine drug screen was negative. He has no complaints today He had silent aspiration with thin liquids and penetration with nectar thick liquids. ST is following. started on a regular diet with nectar thick liquids and instructions to have the patient seated upright at 90 degrees while eating and to take small sips and small bites. Denies RUVALCABA today. Objective: PHYSICAL EXAM: GENERAL: alert, oriented X 3, Cooperative, NAD, conversant ORAL: moist mucosa, no mucosal lesions NECK: No JVD, supple, trachea midline LUNGS: CTA, symmetric chest expansion HEART: RRR, Normal S1 and S2, no rub, no gallop ABDOMEN: soft, NT, ND, BS present, no guarding with palpation EXTREMITIES: no edema, no cyanosis, no calf tenderness SKIN: No rashes, no breakdown NEUROLOGIC: no focal neurologic deficits PSYCH: appropriate, normal affect, pleasant - Physical Exam Vital Signs Temp Pulse Resp BP Pulse Ox 98.1 F 59 L 18 133/88 H 95 12/13/18 20:00 12/13/18 20:00 12/13/18 20:00 12/13/18 20:00 12/13/18 20:00 Oxygen Flow Rate (L/min) 2 Oxygen Delivery Method Room Air Weight: 205 lb 1.6 oz Body Mass Index (BMI) 30.2 Finger Stick Blood Glucose 89 Orthostatic Vital Signs Start: 12/12/18 12:28 Freq: q24h Status: Active Protocol: Activity Type Activity Date Activity User E-Sign Co-Sign Detail Recorded Client Recorded Date Recorded By Document 12/13/18 03:14 [facility] [id number] 12/13/18 03:20 [facility] 12/13/18 03:14 Orthostatic Vitals Standing -Blood Pressure (90/60-120/80 mm Hg) 151/100 H -Extremity Use Right Arm -Pulse Rate (60-100 beats/min) 73 Sitting -Blood Pressure (90/60-120/80 mm Hg) 152/97 H -Extremity Use Right Arm -Pulse Rate (60-100 beats/min) 59 L Lying -Blood Pressure (90/60-120/80 mm Hg) 148/88 H -Extremity Use Right Arm -Pulse Rate (60-100 beats/min) 58 L Intake and Output for Last 24 Hours 12/11/18 12/12/18 12/13/18 23:59 23:59 23:59 Intake Total 3028 / 3028 2228 / 2228 Balance 3028 / 3028 222 / 2228 Laboratory Tests Past 24 Hrs 12/13/18 12/13/18 12/13/18 03:20 06:00 06:00 WBC 4.4 RBC 4.70 Hgb 14.2 Hct 42.2 MCV 89.8 MCH 30.2 MCHC 33.6 RDW 12.4 RDW Differential 40.0 Plt Count 160 MPV 11.7 Sodium 144 Potassium 4.1 Chloride 112 H Carbon Dioxide 23.0 Anion Gap 9 BUN 19 H Creatinine 0.80 Estim Creat Clear Calc 96.97 Est GFR (MDRD) Af Amer 126 Est GFR (MDRD) Non-Af 104 BUN/Creatinine Ratio 23.7 H Glucose 91 Calcium 8.4 L Phosphorus 2.7 Magnesium 2.2 Total Bilirubin 0.80 AST 18 ALT 34 Alkaline Phosphatase 87 Total Protein 6.1 L Albumin 3.0 L Globulin 3.1 Albumin/Globulin Ratio 1.0 Triglycerides 115 Cholesterol 165 LDL Cholesterol 97 VLDL Cholesterol 23 HDL Cholesterol 45 Urine Opiates Screen NEGATIVE Urine Methadone Screen NEGATIVE Ur Barbiturates Screen NEGATIVE Ur Phencyclidine Scrn NEGATIVE Ur Amphetamines Screen NEGATIVE U Methamphetamin-MDMA NEGATIVE U Benzodiazepines Scrn NEGATIVE Urine Cocaine Screen NEGATIVE U Cannabinoids Screen NEGATIVE Ur Drug Screen Comment Medical Necessity - Tobacco Use Smoking Status: Never smoker Tobacco Use: Non-smoker Assessment/Plan All Active Problems Slurred speech (Acute) Acute alteration in mental status (Acute) Dehydration (Acute) Impressions 1. episodic slurred speech - MRI negative 2. AMS - etiology uncertain - possible conversion reaction - no neurologic cause 3. suspected severe recurrent depression 4. HTN - BP's have come down since admission - I think his BP's are increased due to stress and cortisol release. I am hopeful they will improve with tx of the depression/anxiety. Will start Toprol XL until the antidepressant kicks in 5. Left UE pain and paresthesias - episodic and increases with driving and it awakes him at night. possible CTS vs cervical Nerve impingement 6. BPH-on Flomax 7. HLD 8. Dysphasia with silent aspiration of thin liquids and penetration with nectar thick liquids 9. Long-standing GERD Start Toprol XL tonight Consult Dr. Monroe for EGD in the a.m. to rule out gastrointestinal causes of dysphagia. Start Protonix 40 mg p.o. twice daily Continue Escitalopram Probable discharge tomorrow Code Visit OBSV E&M: 95960 Subsequent observation care L2
[2018-12-13] MEDS: Ketorolac 15 MG/ML Vial IV (21:03)
[2018-12-13] MEDS: Pantoprazole Sodium 40 MG Tablet PO (21:03)
[2018-12-13] MEDS: Atorvastatin Calcium 10 MG Tablet 5 MG PO (21:03)
[2018-12-13] MEDS: 0.9% NaCl Peripheral Flush Adult/Peds IV (21:04)
[2018-12-13] MEDS: clonazePAM 1 MG Tablet PO (21:09)
[2018-12-13] MEDS: Metoprolol(XL)Succ 25 MG Tablet PO (21:56)
[2018-12-14] VITALS (12 sets, daily range): BP systolic 120–167; BP diastolic 67–101; PULSE 53–77; RESP 16–18; TEMP 36.4–36.9; O2SAT 92–96; BMI 30.2
[2018-12-14] MEDS: 0.9% Normal Saline 1,000 ML 125 ML IV ×2 (00:07→07:49)
[2018-12-14] MEDS: 0.9% NaCl Peripheral Flush Adult/Peds IV (03:40)
--- NOTE | 2018-12-14 11:00 | IMM_PTH ---
PATIENT: DESHAWN DODGE LOC: [facility] U#:[id number] AGE/SX: 63/M ROOM: [facility] RE12/12/[address]: Dr. Lore Salazar DO : 1955 BED: 1 DIS: 12/14/2018 SPEC #: [id number] RECD: 12/14/18 12:39 STATUS: SOUT REQ #: [id number] AGUEDA: 12/14/18 11:[address]: Shalini Monroe DEPT: IMMUNOHISTOCHEMISTRY RECD BY: Aleida Flowers ENTERED: 12/14/18 12:39 SP TYPE: IMMUNO OTHR DR: DO Dr. Deshawn Ramirez MD Tissues: A - Stomach, NOS Procedures: H Pylori (initial) PHYSICIAN & INSTITUTION [place] [id number] SPECIMEN INFORMATION: Tissue Source: A - Antral biopsy Clinical Info: Dysphagia, emesis Specimen Number: [id number] CPT code: 02295 METHODOLOGY: Deparaffinized sections of prefer/formalin-fixed tissue or PAP/DQ stained slides are incubated with monoclonal/polyclonal antibodies/oligonucleotide probes. Localization is made via biotin free immunoperoxidase method. Appropriate controls are performed and reacted as expected. Results on target cell population are indicated in the following table: RESULTS: ANTIBODY / CLONE RESULT Block A H Pylori (polyclonal) negative These tests were developed and their performance characteristics determined by [facility]. They may not have been cleared or approved by the U.S. Food and Drug Administration. The FDA has determined that such clearance or approval is not necessary. INTERPRETATION: A. Antral biopsy: Negative for Helicobacter pylori organisms. SJ:max 12/17/18
--- NOTE | 2018-12-14 11:00 | EGD_PTH ---
PATIENT: DESHAWN DODGE LOC: [facility] U#:[id number] AGE/SX: 63/M ROOM: [facility] RE12/12/[address]: Dr. Lore Salazar DO : 1955 BED: 1 DIS: 12/14/2018 SPEC #: [id number] RECD: 12/14/18 12:19 STATUS: AMY NGOZI #: [id number] AGUEDA: 12/14/18 11:[address]: Shalini Monroe DEPT: SURGICAL PATHOLOGY RECD BY: Emily Hardy ENTERED: 12/14/18 14:41 SP TYPE: EGD BIOPSY OT DR: DO Dr. Deshawn Ramirze MD Tissues: A - Gastric mucous membrane B - Gastric mucous membrane Procedures: Special Stain Group II Surgery Specimen Level IV Alcian Blue/PAS (control) HEADER [place] [place] DIAGNOSIS: Dysphagia, emesis TISSUE SUBMITTED: A - Antral biopsy and H. pylori, B - GE junction biopsy MICROSCOPIC DIAGNOSIS A. Antral biopsy: Mild gastritis. See microscopic description and comment. B. GE junction, biopsy: Fragments of gastric mucosa with moderate chronic inflammation. Intestinal metaplasia (goblet cell metaplasia) is not identified. See comment. SJ:rg 12/17/18 COMMENT A. The results of immunohistochemistry for Helicobacter pylori will be reported separately ([id number]). B. Alcian blue/PAS stain with matched control is used in the evaluation of the specimen. MICROSCOPIC DESCRIPTION Slides are reviewed. A. The specimen shows fragments of gastric mucosa with chronic inflammatory cell infiltrates in the lamina propria consisting of lymphocytes and plasma cells, consistent with mild chronic gastritis. GROSS DESCRIPTION A - Received in fixative is one container labeled with the patient's name and designated antral biopsy. The specimen consists of one irregular fragment of light bowman soft tissue that measures 0.3 x 0.2 x 0.1 cm. Also present in the container is one minute fragment of bowman soft tissue measuring <0.1 cm in greatest dimension. The specimen is totally submitted in one cassette. B - Received in fixative is one container labeled with the patient's name and designated GE junction. The specimen consists of two irregular fragments of light bowman soft tissue that in aggregate measure 0.2 x 0.2 x 0.1 cm. The specimen is totally submitted in one cassette. / SJ:max 12/14/18 TC: CPT: 96031 x2, 05660
--- NOTE | 2018-12-14 11:48 | OP.ENDO_ITS ---
12/14/2018 Dom Esparza [address] [place] [address] Re : Upper GI endoscopy procedure for Dom Dorsey Dear Dr. Esparza This procedure was performed on Friday, December 14, 2018. My impressions and recommendations are as follows: Impressions : - Z-line irregular. Biopsied. - Erythematous mucosa in the antrum. Biopsied. - Normal first portion of the duodenum and second portion of the duodenum. Recommendations : - Discharge patient to home (ambulatory). - Resume previous diet. - Continue present medications. - Await pathology results. - My office will telephone with pathology results in 1-2 weeks My findings are described in the full procedure note, which is enclosed. If I can be of further assistance, please feel free to contact me at Doctor phone number(s): , Work: . Sincerely, MD Shalini Jacobs MD 12/14/2018 11:47:56 AM This report has been signed electronically.
[2018-12-14] MEDS: Heparin Injection (Vial) 5,000 UNIT/ML VIAL 5000 UNIT SC (12:40)
[2018-12-14] MEDS: Aspirin 81 MG TAB.CHEW PO (12:40)
[2018-12-14] MEDS: Escitalopram Oxalate 10 MG Tablet PO (12:40)
[2018-12-14] MEDS: Tamsulosin HCl 0.4 MG Capsule PO (12:40)
[2018-12-14] MEDS: Pantoprazole Sodium 40 MG Tablet PO (12:40)
--- NOTE | 2018-12-14 14:08 | PCM.PN.NEU ---
Patient Problems: Active and Suspected Problems Slurred speech (Acute) Acute alteration in mental status (Acute) Dehydration (Acute) Subjective: No issues overnight. Had silent aspiration for which he underwent esophagogastroduodenoscopy this morning. Patient denies any history of double vision, ptosis, exertional fatigue. - Physical Exam General: Alert HEENT: Normocephalic Neck: Supple Lungs: Normal air movement Cardiovascular: Normal S1, Normal S2 Abdomen: Bowel Sounds Present Extremities: No cyanosis Neurological: - - consious, alert, CN 2-12 grossly intact, power 5/5 all 4 extremities, no sensory loss, no cerebellar signs, Reflexes + B/L B/S/T/K/A, gait deferred Vital Signs Temp Pulse Resp BP Pulse Ox 97.9 F 55 L 16 156/88 H 94 12/14/18 12:03 12/14/18 12:49 12/14/18 12:03 12/14/18 12:03 12/14/18 12:03 Oxygen Flow Rate (L/min) 2 Oxygen Delivery Method Room Air Weight: 93.032 kg Body Mass Index (BMI) 30.2 Finger Stick Blood Glucose 89 Orthostatic Vital Signs Start: 12/12/18 12:28 Freq: q24h Status: Active Protocol: Activity Type Activity Date Activity User E-Sign Co-Sign Detail Recorded Client Recorded Date Recorded By Document 12/14/18 03:11 [facility] [id number] 12/14/18 03:15 [facility] 12/14/18 03:11 Orthostatic Vitals Standing -Blood Pressure (90/60-120/80) 145/98 H -Extremity Use Right Arm -Pulse Rate (60-100) 77 Sitting -Blood Pressure (90/60-120/80) 154/101 H -Extremity Use Right Arm -Pulse Rate (60-100) 59 L Lying -Blood Pressure (90/60-120/80) 167/99 H -Extremity Use Right Arm -Pulse Rate (60-100) 53 L Intake and Output for Last 24 Hours 12/12/18 12/13/18 12/14/18 23:59 23:59 23:59 Intake Total 3028 / 3028 2972 / 2972 220 / 2208 Balance 3028 / 3028 2972 / 2972 2207 / 2207 Medical Necessity - Tobacco Use Smoking Status: Never smoker Tobacco Use: Non-smoker Assessment/Plan All Active Problems Slurred speech (Acute) Acute alteration in mental status (Acute) Dehydration (Acute) The patient is a 63 year old M with PMH HTN, HLD, depression/anxiety requiring admission to psychiatric facility, history of DVT, BPH admitted with episode of slurred speech. History is obtained from the patient, his family as well as medical records and documentation. Per he had some episode of slurred speech this morning 12/12/2018 when he was at work which per documentation had improved by the time EMS reached to the spot and per documentation he was parked speaking normally at that time but then per the ED documentation he was speaking in one sentences or would not speak at all to the ED doc, was also tearful during the evaluation. At present he denies any dizziness, visual disturbances, speech disturbances, focal motor weakness or sensory loss. He does complain of generalized headache. Per he had an episode of nervous breakdown about 5 to 6 years ago when he was needed admission, has been working 16 hours a day for about 6 to 7 days a week, and also patient's father this September. He denies any falls, does not use cane or walker to ambulate and does drive. Per patient he is not taking any medication for depression or anxiety at present. Per he does take aspirin at baseline. CT head reported unremarkable and CTA head/neck reported no hemodynamically significant stenosis or occlusion. Impression Episode of slurred speech Uncontrolled HTN Possible conversion d/o-stress Plan ?On aspirin and Lipitor ?MRI brain without contrast-reported nothing acute ?CTA head/neck?reported not to show any hemodynamically significant stenosis or occlusion ?TTE-EF 60%, mildly enlarged LA, no PFO. LDL-97, [id number] ?Swallowing issues?had esophagogastroduodenoscopy. Check ACH receptor binding blocking and modulating antibodies, anti-musk antibodies ?Goal blood pressure less than 130/80 mmHg and will defer to the hospitalist team for further management ?GI/DVT prophylaxis ?Fall precautions ?PT/OT/ST ?Further medical management per hospitalist recommendation ?Psychiatric consult for depression management ?Please call with questions if any ?Follow-up with neurology as outpatient in 6 weeks ?Thank you for allowing us to participate in patient's care and management
--- NOTE | 2018-12-14 15:19 | DCINST_ITS ---
- Discharge Diagnoses Current Active Problems: Current Active and Chronic Problems History of hypercholesterolemia (Chronic) Slurred speech (Acute) Acute alteration in mental status (Acute) Hypertension (Chronic) Depression (Chronic) Dehydration (Acute) History of pericarditis (Chronic) You will use the following diet at home:: Cardiac - low fat and low salt Your food should be the consistency of: Regular Your liquids should be the consistency of: Regular/Thin Discharge Activity: - - Remember what I told you about limitations......do not try to do more than you physically can without suffering the mental health consequences. Return to work on:: 12/17/18 Call your doctor if you observe: Fever of 101 or Higher, Shortness of breath, Dizziness, Fainting spells, Swelling in the ankles, Chest pain, Calf discomfort, Uncontrolled pain Instructions: Depression Affects Your Mind and Body, What Can Cause Depression?, Counseling for Depression, Depression: Tips to Help Yourself, What You Can Do When a Loved One Is Depressed, Recognizing Suicide Warning Signs in Yourself, Recognizing Suicide Warning Signs in Others, Your Body's Response to Anxiety, Understanding Panic Disorder (Panic Attack), ED Stress React Additional Instructions: 1. You did not have a stroke. The MRI of the brain had no acute findings. The circulation in the brain and the neck are good with no significant areas of arterial narrowing or aneurysm. You heart squeezes normally and there is no significant valvular heart disease. The Left side of the heart does not appear to relax as well as it should and this is likely due to high blood pressure. I have started you on a BP pill called Metoprolol. You will take this once a day and it will help block the effects of the adrenaline on the heart......people who are stressed or in pain have high adrenaline levels and this increases the heart rate and also the BP. 2. Listen to your family when they tell you that you are not yourself.....they love you and know you very well. You have worked hard all your life and deserve to be happy. Take care of yourself. 3. The pain and the numbness in the left arm may be due to carpal tunnel syndrome. If it comes back talk to your doctor....you may need a nerve conduction study. 4. You can try a TENS unit for your low back. This stands for transcutaneous nerve stimulator. They can be purchased at most large pharmacies. Allergies/Adverse Reactions: Allergies No Known Allergies Allergy (Verified 12/12/18 09:43) Medications to take at Discharge Lovastatin [Mevacor] 20 mg PO DAILY 10/18/16 Aspirin [Aspirin, Baby] 81 mg PO DAILY@0800 12/12/18 Diclofenac Submicronized [Zorvolex] 18 mg PO BID 12/12/18 Tamsulosin HCl [Flomax] 0.4 mg PO DAILY 12/12/18 Clonazepam [Klonopin] 1 mg PO QHS #30 tablet 12/14/18 Escitalopram Oxalate [Lexapro] 10 mg PO DAILY #30 tablet 12/14/18 Famotidine [Pepcid] 20 mg PO BID #60 tablet 12/14/18 Metoprolol(XL)Succ [Toprol Xl (Beta Richard)] 25 mg PO QHS #30 tablet 12/14/18 The following prescriptions were given: Clonazepam [Klonopin] 1 mg PO QHS #30 tablet Escitalopram Oxalate [Lexapro] 10 mg PO DAILY #30 tablet Metoprolol(XL)Succ [Toprol Xl (Beta Richard)] 25 mg PO QHS #30 tablet Famotidine [Pepcid] 20 mg PO BID #60 tablet Primary Care Physician: Dom Esparza MD [Primary Care Provider] - Please follow up with your Primary Care Physician in: 2 weeks to check the BP Test Results: Test results from this visit will be discussed in further detail at your follow- up appointment, if applicable. Please Follow Up With: Javon Coombs MD When: 6 weeks Proposed Discharge Date: 12/14/18
--- NOTE | 2018-12-14 15:19 | PCM.WORK.EX ---
Work/School Excuse Work/School Excuse for:: Patient Please excuse this person from:: Work From: 12/12/18 through: 12/16/18 Restrictions: Other - no restrictions other than limit shifts to 10 hours and no more
--- NOTE | 2018-12-14 15:34 | PCM.DC.SUM ---
Discharge Date and Diagnosis Date of Admission: 12/12/18 Date of Discharge: 12/14/18 - Primary Discharge Diagnosis Active and Suspected Problems Slurred speech (Acute) Acute alteration in mental status (Acute) Suspected conversion reaction Pain in left arm associated with numbness in the left hand(Acute) Acute prerenal azotemia (Acute) Dehydration (Acute) - Secondary Discharge Diagnosis Chronic Problems Oropharyngeal dysphagia (Chronic) - for at least a few years but never saw anyone for this History of BPH (Chronic) History of hypercholesterolemia (Chronic) Hypertension (Chronic) Recurrent Depression (Chronic) - untreated History of pericarditis (Chronic) Hx of a nervous breakdown 2013 Hospital Course and Treatment Imaging Results: Clinical Impression(s) from Imaging Studies Brain CT 12/12/18 09:19 IMPRESSION: Normal unenhanced CT scan of the brain. N.B. : The above information has been verbally conveyed by Nilo Recio to [facility] on 12/12/2018 09:34:48 (ET). Electronically Signed: Nilo Recio, at 9:36 EDT , Service support , ADDENDUM: 12/12/18 0942 IMPRESSION: Normal unenhanced CT scan of the brain. N.B. : The above information has been verbally conveyed by Nilo Recio to [facility] on 12/12/2018 09:34:48 (ET). Electronically Signed: Nilo Recio, at 9:36 EDT , Service support , ADDENDUM: 12/12/18 1643 IMPRESSION: Normal unenhanced CT scan of the brain. N.B. : The above information has been verbally conveyed by Nilo Recio to [facility] on 12/12/2018 09:34:48 (ET). Electronically Signed: Nilo Recio at 9:36 EDT , Service support , Head CTA 12/12/18 09:19 IMPRESSION: Normal bilateral cervical carotid and vertebral arteries. N.B. : The above information has been verbally conveyed by Nilo Recio to [facility] on 12/12/2018 09:51:00 (ET). Electronically Signed: Nilo Recio, at 9:52 EDT , Service support , ADDENDUM: 12/12/18 0959 IMPRESSION: Normal bilateral cervical carotid and vertebral arteries. N.B. : The above information has been verbally conveyed by Nilo Recio to [facility] on 12/12/2018 09:51:00 (ET). Electronically Signed: Nilo Recio, at 9:52 EDT , Service support , ADDENDUM: 12/12/18 1646 IMPRESSION: Normal bilateral cervical carotid and vertebral arteries. N.B. : The above information has been verbally conveyed by Nilo Recio to [facility] on 12/12/2018 09:51:00 (ET). Electronically Signed: Nilo Recio, at 9:52 EDT , Service support , Neck CTA 12/12/18 09:19 IMPRESSION: Normal bilateral cervical carotid and vertebral arteries. N.B. : The above information has been verbally conveyed by Nilo Recio to [facility] on 12/12/2018 09:51:00 (ET). Electronically Signed: Nilo Recio, at 9:52 EDT , Service support , ADDENDUM: 12/12/18 0959 IMPRESSION: Normal bilateral cervical carotid and vertebral arteries. N.B. : The above information has been verbally conveyed by Nilo Recio to Shermankatharine Robertoo on 12/12/2018 09:51:00 (ET). Electronically Signed: Nilo Recio, at 9:52 EDT , Service support , ADDENDUM: 12/12/18 1645 IMPRESSION: Normal bilateral cervical carotid and vertebral arteries. N.B. : The above information has been verbally conveyed by Nilo Recio to Sherman Carbone on 12/12/2018 09:51:00 (ET). Electronically Signed: Nilo Recio, at 9:52 EDT , Service support , Brain MRI 12/12/18 12:22 IMPRESSION: No acute findings, the diffusion-weighted sequence is normal. There is no MRI evidence for acute infarct Small right mastoid effusion Mild inflammatory changes within the paranasal sinuses Electronically Signed: Dom Jacobson, at 16:51 EDT Tel , Service support , Cervical Spine MRI 12/12/18 12:22 IMPRESSION: Multilevel spondylosis no acute fractures as above. Electronically Signed: Dom Jacobson, at 18:31 EDT Tel , Service support , Videofluoroscopic Swallow 12/13/18 00:00 IMPRESSION: Silent aspiration with ingestion of thin liquids. Penetration with ingestion of nectar thickened liquids. The swallow study findings were discussed with the patient by the speech pathologist at the conclusion of the examination. Please see speech pathology report for more information and recommendations. Electronically Signed: Nilo Recio, at 14:16 EDT , Service support , Dr. Sudheer Coombs-neurology Dr. Shalini Monroe-[facility] general surgery Operations: None Procedures: 2-D Echocardiogram - Interpretation Summary Left ventricular systolic function is normal. The estimated ejection fraction is 60 %. The left atrium is mildly enlarged. Trivial mitral valve insufficiency. Trivial tricuspid valve insufficiency. Trivial aortic valve insufficiency. Trivial pulmonic valve insufficiency. Mildly dilated aortic root. Right ventricular systolic pressure estimated to be 22 mmHg. Transmitral doppler flow suggestive of impaired relaxation of left ventricle Bubble contrast study negative for right to left interatrial shunt., EGD - Impressions : - Z-line irregular. Biopsied. - Erythematous mucosa in the antrum. Biopsied. - Normal first portion of the duodenum and second portion of the duodenum. Summary of Care Provided: The patient is a 63 year old M with a past medical history of hypertension, severe depression requiring admission to a psychiatric facility 5 years prior to presentation to the ED, BPH and hyperlipidemia who had an episode of slurred speech at work. EMS was called and when they arrived he was speaking normally but, he then began speaking in 1 word sentences and would not speak to the ER doc at all. He was not following commands. Vital signs at presentation to the emergency room were temp of 98 ?F, pulse rate 63, blood pressure 168/109, respiratory rate 20 and he was 95% saturated on room air. An emergent CT brain without contrast showed no intracranial bleeding or evidence of ischemic stroke. CTA of the brain and neck showed no evidence of aneurysm or significant arterial stenosis. Review of the labs showed a normal CBC and a normal PT and PTT. Electrolytes were unremarkable but the BUN was elevated at 33 with a creatinine of 1.01 and the patient admitted to poor appetite recently. Troponin was less than 0.015. He was seen and evaluated by Dr. Coombs in the ED. He was admitted to a monitored bed on PCU. He later began to talk and move by himself although speech was slow and so were his movements. His NIH was 0 prior to arriving on PCU. He has a hx of major depression in the past and 5 years ago was hospitalized for a nervous breakdown. He had been on escitalopram but stopped this on his own in 2016. His father in September of metastatic prostate cancer. He had been working 14-15 hour shifts at work. He had been sleeping more and also c/o of rm more often per his family. He was irritable and having trouble with his appetite. He was also having trouble with memory. He denied any suicidal ideation or homicidal ideation. He also c/o episodic left arm pain with paresthesias in the left hand. He is awakened from sleep with this and it also occurs when driving. The more I talked with him the more conversant and animated he became. He was tearful at times. MRI of the brain showed no acute findings had no evidence for acute infarct. There was a small right mastoid effusion and some mild inflammatory changes within the paranasal sinuses. Telemetry showed normal sinus rhythm with no significant dysrhythmia/ectopy. A echocardiogram was obtained and showed normal left ventricular systolic function with an ejection fraction of 60%. The left atrium was mildly enlarged and there was trivial mitral valve insufficiency, tricuspid insufficiency and aortic valve insufficiency. The aortic root was mildly dilated. PA systolic was estimated at 22 which is within normal limits. Transmitral Doppler flow was suggestive of impaired relaxation of the left ventricle. The bubble contrast study was negative for right to left intra-atrial shunt. He was started on Escitalopram while in the hospital. ST detected oropharyngeal dysphagia and a MBS was completed. He had silent aspiration of thin liquids and penetration with nectar thick liquids. Since we could detect no neurologic cause for dysphagia Dr. Monroe was consulted for EGD to look for GI cause. He is known to have GERD and the trouble swallowing was not new. The EGD showed an irregular Z line which was biopsied. There was erythematous mucosa in the antrum and this was also biopsied. The first portion of the duodenum in the second portion of the duodenum were normal. He was discharged home on 12/14/2018 and instructed to avoid caffeine, peppermint and chocolate to decrease reflux. He was given a prescription for famotidine and will take 20 mg p.o. twice daily. While in the hospital his blood pressures were elevated and there was suggestion of diastolic dysfunction on his echocardiogram so he was started on metoprolol 25 mg p.o. nightly. He was given a prescription for escitalopram 10 mg and instructed to take 1 daily. I encouraged him to follow-up for psychotherapy and also to cut back on his work hours to decrease stress. He will follow-up with his primary care physician, Dr. Dom Esparza, in 2 weeks to recheck his blood pressure. He will follow-up with Dr. Coombs in the office in 6 weeks. A. Antral biopsy: Mild gastritis. See microscopic description and comment. B. GE junction, biopsy: Fragments of gastric mucosa with moderate chronic inflammation. Intestinal metaplasia (goblet cell metaplasia) is not identified. See comment. PHYSICAL EXAM: GENERAL: alert, oriented X 3, Cooperative, NAD ORAL: moist mucosa, no mucosal lesions NECK: No JVD, supple, trachea midline LUNGS: CTA, symmetric chest expansion HEART: RRR, Normal S1 and S2, no rub, no gallop ABDOMEN: soft, NT, ND, BS present, no guarding with palpation EXTREMITIES: no edema, no cyanosis, no calf tenderness SKIN: No rashes, no breakdown NEUROLOGIC: no focal neurologic deficits PSYCH: appropriate, normal affect, pleasant This note was generated with [employer] dictation software. It may contain incorrect words, spelling, and punctuation that were not noted in checking the note before signing. - Physical Exam Vital Signs Temp Pulse Resp BP Pulse Ox 98 F 61 16 120/76 92 12/14/18 14:30 12/14/18 14:30 12/14/18 14:30 12/14/18 14:30 12/14/18 14:30 Oxygen Flow Rate (L/min) 2 Oxygen Delivery Method Room Air Weight: 205 lb 1.6 oz Body Mass Index (BMI) 30.2 Finger Stick Blood Glucose 89 Orthostatic Vital Signs Start: 12/12/18 12:28 Freq: q24h Status: Active Protocol: Activity Type Activity Date Activity User E-Sign Co-Sign Detail Recorded Client Recorded Date Recorded By Document 12/14/18 03:11 [facility] [id number] 12/14/18 03:15 [facility] 12/14/18 03:11 Orthostatic Vitals Standing -Blood Pressure (90/60-120/80 mm Hg) 145/98 H -Extremity Use Right Arm -Pulse Rate (60-100 beats/min) 77 Sitting -Blood Pressure (90/60-120/80 mm Hg) 154/101 H -Extremity Use Right Arm -Pulse Rate (60-100 beats/min) 59 L Lying -Blood Pressure (90/60-120/80 mm Hg) 167/99 H -Extremity Use Right Arm -Pulse Rate (60-100 beats/min) 53 L Intake and Output for Last 24 Hours 12/12/18 12/13/18 12/14/18 23:59 23:59 23:59 Intake Total 3028 / 3028 2972 / 2972 2207 Balance 3028 / 3028 2972 / 2972 2207 Laboratory Tests Past 24 Hrs 12/14/18 12/14/18 14:55 14:55 Acetylchol Rcpt Block Ab Pending Acetylchol Rcpt Modu Ab Pending Miscellaneous Test Pending Discharge Activity: - - Remember what I told you about limitations......do not try to do more than you physically can without suffering the mental health consequences. Return to work on:: 12/17/18 Call your doctor if you observe: Fever of 101 or Higher, Shortness of breath, Dizziness, Fainting spells, Swelling in the ankles, Chest pain, Calf discomfort, Uncontrolled pain Home Medications: Medications to take at Discharge Lovastatin [Mevacor] 20 mg PO DAILY 10/18/16 Aspirin [Aspirin, Baby] 81 mg PO DAILY@0800 12/12/18 Diclofenac Submicronized [Zorvolex] 18 mg PO BID 12/12/18 Tamsulosin HCl [Flomax] 0.4 mg PO DAILY 12/12/18 Clonazepam [Klonopin] 1 mg PO QHS #30 tablet 12/14/18 Escitalopram Oxalate [Lexapro] 10 mg PO DAILY #30 tablet 12/14/18 Famotidine [Pepcid] 20 mg PO BID #60 tablet 12/14/18 Metoprolol(XL)Succ [Toprol Xl (Beta Richard)] 25 mg PO QHS #30 tablet 12/14/18 Following Prescrptions Were Given to Patient: Clonazepam [Klonopin] 1 mg PO QHS #30 tablet Escitalopram Oxalate [Lexapro] 10 mg PO DAILY #30 tablet Metoprolol(XL)Succ [Toprol Xl (Beta Richard)] 25 mg PO QHS #30 tablet Famotidine [Pepcid] 20 mg PO BID #60 tablet Other Amb Orders: Speech Therapy Evaluation Location: None Selected Primary Care Physician: Dom Esparza MD [Primary Care Provider] - Please follow up with your Primary Care Physician in: 2 weeks to check the BP Please Follow Up With: Javon Coombs MD When: 6 weeks Patient Instructions: Your Body's Response to Anxiety, Depression Affects Your Mind and Body, What Can Cause Depression?, Counseling for Depression, Depression: Tips to Help Yourself, What You Can Do When a Loved One Is Depressed, Understanding Panic Disorder (Panic Attack), Recognizing Suicide Warning Signs in Yourself, Recognizing Suicide Warning Signs in Others, ED Stress React Disposition: Home Minutes spent on discharge:: 40 Patient Condition:: Good Medical Necessity - Tobacco Use Smoking Status: Never smoker Tobacco Use: Non-smoker Meaningful Use Info Meaningful Use Diagnoses (Choose all that apply): None applicable Code Visit Inpatient E&M: 50390 Disch Hosp
--- NOTE | 2018-12-14 15:38 | DS.PCM_ITS ---
Discharge Date and Diagnosis Date of Admission: 12/12/18 Date of Discharge: 12/14/18 - Primary Discharge Diagnosis Active and Suspected Problems Slurred speech (Acute) Acute alteration in mental status (Acute) Suspected conversion reaction Pain in left arm associated with numbness in the left hand(Acute) Acute prerenal azotemia (Acute) Dehydration (Acute) - Secondary Discharge Diagnosis Chronic Problems Oropharyngeal dysphagia (Chronic) - for at least a few years but never saw anyone for this History of BPH (Chronic) History of hypercholesterolemia (Chronic) Hypertension (Chronic) Recurrent Depression (Chronic) - untreated History of pericarditis (Chronic) Hx of a nervous breakdown 2013 Hospital Course and Treatment Imaging Results: Clinical Impression(s) from Imaging Studies Brain CT 12/12/18 09:19 IMPRESSION: Normal unenhanced CT scan of the brain. N.B. : The above information has been verbally conveyed by Nilo Recio to [facility] on 12/12/2018 09:34:48 (ET). Electronically Signed: Nilo Recio, at 9:36 EDT , Service support , ADDENDUM: 12/12/18 0942 IMPRESSION: Normal unenhanced CT scan of the brain. N.B. : The above information has been verbally conveyed by Nilo Recio to [facility] on 12/12/2018 09:34:48 (ET). Electronically Signed: Nilo Recio, at 9:36 EDT , Service support , ADDENDUM: 12/12/18 1643 IMPRESSION: Normal unenhanced CT scan of the brain. N.B. : The above information has been verbally conveyed by Nilo Recio to [facility] on 12/12/2018 09:34:48 (ET). Electronically Signed: Nilo Recio at 9:36 EDT , Service support , Head CTA 12/12/18 09:19 IMPRESSION: Normal bilateral cervical carotid and vertebral arteries. N.B. : The above information has been verbally conveyed by Nilo Recio to [facility] on 12/12/2018 09:51:00 (ET). Electronically Signed: Nilo Recio, at 9:52 EDT , Service support , ADDENDUM: 12/12/18 0959 IMPRESSION: Normal bilateral cervical carotid and vertebral arteries. N.B. : The above information has been verbally conveyed by Nilo Recio to [facility] on 12/12/2018 09:51:00 (ET). Electronically Signed: Nilo Recio, at 9:52 EDT , Service support , ADDENDUM: 12/12/18 1646 IMPRESSION: Normal bilateral cervical carotid and vertebral arteries. N.B. : The above information has been verbally conveyed by Nilo Recio to [facility] on 12/12/2018 09:51:00 (ET). Electronically Signed: Nilo Recio, at 9:52 EDT , Service support , Neck CTA 12/12/18 09:19 IMPRESSION: Normal bilateral cervical carotid and vertebral arteries. N.B. : The above information has been verbally conveyed by Nilo Recio to [facility] on 12/12/2018 09:51:00 (ET). Electronically Signed: Nilo Recio, at 9:52 EDT , Service support , ADDENDUM: 12/12/18 0959 IMPRESSION: Normal bilateral cervical carotid and vertebral arteries. N.B. : The above information has been verbally conveyed by Nilo Recio to Shermankatharine Robertoo on 12/12/2018 09:51:00 (ET). Electronically Signed: Nilo Recio, at 9:52 EDT , Service support , ADDENDUM: 12/12/18 1645 IMPRESSION: Normal bilateral cervical carotid and vertebral arteries. N.B. : The above information has been verbally conveyed by Nilo Recio to Sherman Carbone on 12/12/2018 09:51:00 (ET). Electronically Signed: Nilo Recio, at 9:52 EDT , Service support , Brain MRI 12/12/18 12:22 IMPRESSION: No acute findings, the diffusion-weighted sequence is normal. There is no MRI evidence for acute infarct Small right mastoid effusion Mild inflammatory changes within the paranasal sinuses Electronically Signed: Dom Jacobson, at 16:51 EDT Tel , Service support , Cervical Spine MRI 12/12/18 12:22 IMPRESSION: Multilevel spondylosis no acute fractures as above. Electronically Signed: Dom Jacobson, at 18:31 EDT Tel , Service support , Videofluoroscopic Swallow 12/13/18 00:00 IMPRESSION: Silent aspiration with ingestion of thin liquids. Penetration with ingestion of nectar thickened liquids. The swallow study findings were discussed with the patient by the speech pathologist at the conclusion of the examination. Please see speech pathology report for more information and recommendations. Electronically Signed: Nilo Recio, at 14:16 EDT , Service support , Dr. Sudheer Coombs-neurology Dr. Shalini Monroe[facility] general surgery Operations: None Procedures: 2-D Echocardiogram - Interpretation Summary Left ventricular systolic function is normal. The estimated ejection fraction is 60 %. The left atrium is mildly enlarged. Trivial mitral valve insufficiency. Trivial tricuspid valve insufficiency. Trivial aortic valve insufficiency. Trivial pulmonic valve insufficiency. Mildly dilated aortic root. Right ventricular systolic pressure estimated to be 22 mmHg. Transmitral doppler flow suggestive of impaired relaxation of left ventricle Bubble contrast study negative for right to left interatrial shunt., EGD - Impressions : - Z-line irregular. Biopsied. - Erythematous mucosa in the antrum. Biopsied. - Normal first portion of the duodenum and second portion of the duodenum. Summary of Care Provided: The patient is a 63 year old M with a past medical history of hypertension, severe depression requiring admission to a psychiatric facility 5 years prior to presentation to the ED, BPH and hyperlipidemia who had an episode of slurred speech at work. EMS was called and when they arrived he was speaking normally but, he then began speaking in 1 word sentences and would not speak to the ER doc at all. He was not following commands. Vital signs at presentation to the emergency room were temp of 98 ?F, pulse rate 63, blood pressure 168/109, respiratory rate 20 and he was 95% saturated on room air. An emergent CT brain without contrast showed no intracranial bleeding or evidence of ischemic stroke. CTA of the brain and neck showed no evidence of aneurysm or significant arterial stenosis. Review of the labs showed a normal CBC and a normal PT and PTT. Electrolytes were unremarkable but the BUN was elevated at 33 with a creatinine of 1.01 and the patient admitted to poor appetite recently. Troponin was less than 0.015. He was seen and evaluated by Dr. Coombs in the ED. He was admitted to a monitored bed on PCU. He later began to talk and move by himself although speech was slow and so were his movements. His NIH was 0 prior to arriving on PCU. He has a hx of major depression in the past and 5 years ago was hospitalized for a nervous breakdown. He had been on escitalopram but stopped this on his own in 2016. His father in September of metastatic prostate cancer. He had been working 14-15 hour shifts at work. He had been sleeping more and also c/o of rm more often per his family. He was irritable and having trouble with his appetite. He was also having trouble with memory. He denied any suicidal ideation or homicidal ideation. He also c/o episodic left arm pain with paresthesias in the left hand. He is awakened from sleep with this and it also occurs when driving. The more I talked with him the more conversant and animated he became. He was tearful at times. MRI of the brain showed no acute findings had no evidence for acute infarct. There was a small right mastoid effusion and some mild inflammatory changes within the paranasal sinuses. Telemetry showed normal sinus rhythm with no significant dysrhythmia/ectopy. A echocardiogram was obtained and showed normal left ventricular systolic function with an ejection fraction of 60%. The left atrium was mildly enlarged and there was trivial mitral valve insufficiency, tricuspid insufficiency and aortic valve insufficiency. The aortic root was mildly dilated. PA systolic was estimated at 22 which is within normal limits. Transmitral Doppler flow was suggestive of impaired relaxation of the left ventricle. The bubble contrast study was negative for right to left intra-atrial shunt. He was started on Escitalopram while in the hospital. ST detected oropharyngeal dysphagia and a MBS was completed. He had silent aspiration of thin liquids and penetration with nectar thick liquids. Since we could detect no neurologic cause for dysphagia Dr. Monroe was consulted for EGD to look for GI cause. He is known to have GERD and the trouble swallowing was not new. The EGD showed an irregular Z line which was biopsied. There was erythematous mucosa in the antrum and this was also biopsied. The first portion of the duodenum in the second portion of the duodenum were normal. He was discharged home on 12/14/2018 and instructed to avoid caffeine, peppermint and chocolate to decrease reflux. He was given a prescription for famotidine and will take 20 mg p.o. twice daily. While in the hospital his blood pressures were elevated and there was suggestion of diastolic dysfunction on his echocardiogram so he was started on metoprolol 25 mg p.o. nightly. He was given a prescription for escitalopram 10 mg and instructed to take 1 daily. I encouraged him to follow-up for psychotherapy and also to cut back on his work hours to decrease stress. He will follow-up with his primary care physician, Dr. Dom Esparza, in 2 weeks to recheck his blood pressure. He will follow-up with Dr. Coombs in the office in 6 weeks. A. Antral biopsy: Mild gastritis. See microscopic description and comment. B. GE junction, biopsy: Fragments of gastric mucosa with moderate chronic inflammation. Intestinal metaplasia (goblet cell metaplasia) is not identified. See comment. PHYSICAL EXAM: GENERAL: alert, oriented X 3, Cooperative, NAD ORAL: moist mucosa, no mucosal lesions NECK: No JVD, supple, trachea midline LUNGS: CTA, symmetric chest expansion HEART: RRR, Normal S1 and S2, no rub, no gallop ABDOMEN: soft, NT, ND, BS present, no guarding with palpation EXTREMITIES: no edema, no cyanosis, no calf tenderness SKIN: No rashes, no breakdown NEUROLOGIC: no focal neurologic deficits PSYCH: appropriate, normal affect, pleasant This note was generated with Inform Direct dictation software. It may contain incorrect words, spelling, and punctuation that were not noted in checking the note before signing. - Physical Exam Vital Signs Temp Pulse Resp BP Pulse Ox 98 F 61 16 120/76 92 12/14/18 14:30 12/14/18 14:30 12/14/18 14:30 12/14/18 14:30 12/14/18 14:30 Oxygen Flow Rate (L/min) 2 Oxygen Delivery Method Room Air Weight: 205 lb 1.6 oz Body Mass Index (BMI) 30.2 Finger Stick Blood Glucose 89 Orthostatic Vital Signs Start: 12/12/18 12:28 Freq: q24h Status: Active Protocol: Activity Type Activity Date Activity User E-Sign Co-Sign Detail Recorded Client Recorded Date Recorded By Document 12/14/18 03:11 [facility] [id number] 12/14/18 03:15 [facility] 12/14/18 03:11 Orthostatic Vitals Standing -Blood Pressure (90/60-120/80 mm Hg) 145/98 H -Extremity Use Right Arm -Pulse Rate (60-100 beats/min) 77 Sitting -Blood Pressure (90/60-120/80 mm Hg) 154/101 H -Extremity Use Right Arm -Pulse Rate (60-100 beats/min) 59 L Lying -Blood Pressure (90/60-120/80 mm Hg) 167/99 H -Extremity Use Right Arm -Pulse Rate (60-100 beats/min) 53 L Intake and Output for Last 24 Hours 12/12/18 12/13/18 12/14/18 23:59 23:59 23:59 Intake Total 3028 / 3028 2972 / 2972 2207 Balance 3028 / 3028 2972 / 2972 2207 Laboratory Tests Past 24 Hrs 12/14/18 12/14/18 14:55 14:55 Acetylchol Rcpt Block Ab Pending Acetylchol Rcpt Modu Ab Pending Miscellaneous Test Pending Discharge Activity: - - Remember what I told you about limitations......do not try to do more than you physically can without suffering the mental health consequences. Return to work on:: 12/17/18 Call your doctor if you observe: Fever of 101 or Higher, Shortness of breath, Dizziness, Fainting spells, Swelling in the ankles, Chest pain, Calf discomfort, Uncontrolled pain Home Medications: Medications to take at Discharge Lovastatin [Mevacor] 20 mg PO DAILY 10/18/16 Aspirin [Aspirin, Baby] 81 mg PO DAILY@0800 12/12/18 Diclofenac Submicronized [Zorvolex] 18 mg PO BID 12/12/18 Tamsulosin HCl [Flomax] 0.4 mg PO DAILY 12/12/18 Clonazepam [Klonopin] 1 mg PO QHS #30 tablet 12/14/18 Escitalopram Oxalate [Lexapro] 10 mg PO DAILY #30 tablet 12/14/18 Famotidine [Pepcid] 20 mg PO BID #60 tablet 12/14/18 Metoprolol(XL)Succ [Toprol Xl (Beta Richard)] 25 mg PO QHS #30 tablet 12/14/18 Following Prescrptions Were Given to Patient: Clonazepam [Klonopin] 1 mg PO QHS #30 tablet Escitalopram Oxalate [Lexapro] 10 mg PO DAILY #30 tablet Metoprolol(XL)Succ [Toprol Xl (Beta Richard)] 25 mg PO QHS #30 tablet Famotidine [Pepcid] 20 mg PO BID #60 tablet Other Amb Orders: Speech Therapy Evaluation Location: None Selected Primary Care Physician: Dom Esparza MD [Primary Care Provider] - Please follow up with your Primary Care Physician in: 2 weeks to check the BP Please Follow Up With: Javon Coombs MD When: 6 weeks Patient Instructions: Your Body's Response to Anxiety, Depression Affects Your Mind and Body, What Can Cause Depression?, Counseling for Depression, Depression: Tips to Help Yourself, What You Can Do When a Loved One Is Depressed, Understanding Panic Disorder (Panic Attack), Recognizing Suicide Warning Signs in Yourself, Recognizing Suicide Warning Signs in Others, ED Stress React Disposition: Home Minutes spent on discharge:: 40 Patient Condition:: Good Medical Necessity - Tobacco Use Smoking Status: Never smoker Tobacco Use: Non-smoker Meaningful Use Info Meaningful Use Diagnoses (Choose all that apply): None applicable Code Visit Inpatient E&M: 05906 Disch Hosp
[2018-12-21 12:34] LABS: ACHR AB Modulating <12 % (0-20); ACHR Recep AB, Blocking 19 % (0-25)
== END 2018-12-14 15:33 | disposition home or self-care (01) ==
LOC: ED 09:59 → PCU 10:25
PROVIDERS: Psychiatry & Neurology Neurology; Surgery; Admitting Provider Internal Medicine; Emergency Provider Emergency Medicine; Family Provider Family Medicine; PCP Family Medicine; Referring Provider Family Medicine; Visit Provider Internal Medicine
PROC: 0DJ08ZZ Inspection of Upper Intestinal Tract, Via Natural or Artificial Opening Endoscopic (ICD-10-PCS; CPT 43235; principal; 2018-12-14 10:55)
DX: R41.82 Altered mental status, unspecified (principal); E86.0 Dehydration; R13.10 Dysphagia, unspecified; K29.70 Gastritis, unspecified, without bleeding; R47.81 Slurred speech; R47.01 Aphasia; N40.0 Benign prostatic hyperplasia without lower urinary tract symptoms; R20.0 Anesthesia of skin; I08.3 Combined rheumatic disorders of mitral, aortic and tricuspid valves; R29.727 NIHSS score 27; I10 Essential (primary) hypertension; E78.5 Hyperlipidemia, unspecified; F41.9 Anxiety disorder, unspecified; F32.9 Major depressive disorder, single episode, unspecified; Z86.718 Personal history of other venous thrombosis and embolism; Z79.899 Other long term (current) drug therapy; Z79.82 Long term (current) use of aspirin
CPT/HCPCS: 43239; 36415; 70450; 70496; 70498; 70551; 72141; 74230; 80048; 80053; 80061; 80076; 80307; 80320; 82962; 83519; 83735; 84100; 84443; 84484; 85025; 85027; 85610; 85730; 88305; 88313; 88342; 92526; 92610; 92611; 93005; 93306; 94770; 96361; 96372; 96374; 96375; 96376; 97162; 97166; 99218; 99251; 99285; J7030; Q9957; Q9967; A4216; G0378; G0463; G0480

== ENCOUNTER → 2020-07-20 16:32 | Outpatient (CLI) | payer OTHER, SELFPAY ==
[2018-12-14 09:53] VITALS: BMI 30.2
--- NOTE | 2020-07-20 16:41 | MRI_ITS ---
STUDY: MRI LUMBAR SPINE WITHOUT CONTRAST REASON FOR EXAM: Male, 64 years old. BACK PAIN -- pain low back and left hip,,, prev lumbar surgery 15 years ago TECHNIQUE: Standardized fat and water weighted pulse sequences were obtained in the sagittal and axial planes. COMPARISON: None FINDINGS: T12-L1: Normal endplates. Normal disc height, hydration and morphology. Normal bilateral facet joints. Normal central canal and bilateral lateral recesses. Normal bilateral intervertebral neural foramina. Normal lumbar lordosis. There is no substantial scoliosis. Normal conus medullaris that terminates at the L1 level. L1-2: Endplate spondylosis. 5 mm retrolisthesis. Decreased disc height and small circumferential disc bulge. Degenerative changes of the bilateral facet joints. Mild narrowing of the central canal and moderate to severe narrowing of the bilateral intervertebral neural foramina. L2-3: Endplate spondylosis. 5 mm retrolisthesis. Decreased disc height and small circumferential disc bulge. Degenerative changes of the bilateral facet joints. Mild narrowing of the central canal and moderate to severe narrowing of the bilateral intervertebral neural foramina. L3-4: Endplate spondylosis. 5 mm retrolisthesis. Decreased disc height and small circumferential disc bulge. Degenerative changes of the bilateral facet joints. Moderate narrowing of the central canal and severe narrowing of the bilateral intervertebral neural foramina. L4-5: Endplate spondylosis. Decreased disc height and small circumferential disc bulge. Bilateral laminectomy and posterior fusion. There is no central canal or intervertebral neural foraminal narrowing. L5-S1: Endplate spondylosis. Decreased disc height and small circumferential disc bulge. Bilateral laminectomy and posterior fusion. There is no central canal or intervertebral neural foraminal narrowing. Normal visualized sacral ala. Normal visualized paraspinous soft tissue structures. MRI/Spine Lumbar (Routine) IMPRESSION: Multilevel degenerative changes, as described above. Electronically Signed: Bossman Kent, at 2:53 EST Tel , Service support ,
== END ==
PROVIDERS: PCP Family Medicine; Referring Provider Anesthesiology Pain Medicine; Visit Provider Anesthesiology Pain Medicine
DX: M54.9 Dorsalgia, unspecified (principal); M79.606 Pain in leg, unspecified
CPT/HCPCS: 72148

== ENCOUNTER → 2020-08-10 17:05 | Outpatient (CLI) | payer OTHER, SELFPAY ==
[2020-07-27 15:17] VITALS: BMI 28.7
--- NOTE | 2020-08-10 17:06 | MRI_ITS ---
STUDY: MRI RIGHT SHOULDER REASON FOR EXAM: Male, 64 years old. rt shoulder injury/pain -- pain entire shoulder with limited rom TECHNIQUE: Standardized fat and water weighted pulse sequences were obtained in all 3 orthogonal planes. COMPARISON: 07/27/2020. FINDINGS: Moderate infraspinatus tendinosis with low-grade partial thickness articular surface tear (coronal image 11 series 6 and sagittal image 16 series 7). Moderate supraspinatus tendinosis. Mild/moderate subscapularis tendinosis. Normal teres minor tendon. No muscle atrophy. Moderate/severe intracapsular biceps tendinosis with split tear. Biceps labral anchor intact. Labral degeneration with anterior labral tear (axial image 11 series 4). Capsular ligaments intact. Mild edema at the rotator cuff interval. Mild glenohumeral cartilage loss. Moderate acromioclavicular joint arthrosis. Mild anterior interval narrowing. No acute fracture, dislocation or osseous destruction. Small volume glenohumeral joint effusion. No subacromial subdeltoid bursitis. Intact coracohumeral and coracoacromial ligaments. Normal quadrilateral space. Normal axillary space. Normal deltoid muscle. Normal trapezius muscle. MRI/Upper Ext Joint Only(Routine) IMPRESSION: Rotator cuff tendinosis with low-grade partial thickness infraspinatus tendon tear Moderate/severe intracapsular long biceps tendinosis with split tear Labral degeneration with anterior labral tear Mild nonspecific rotator cuff interval edema Mild glenohumeral and moderate AC joint arthrosis with anterior interval narrowing/impingement Small volume glenohumeral joint effusion Electronically Signed: Cj Benjamin DO at 9:06 EST Tel , Service support ,
== END ==
PROVIDERS: PCP Family Medicine; Referring Provider Physician Assistant; Visit Provider Physician Assistant
DX: M25.511 Pain in right shoulder (principal); S49.91XA Unspecified injury of right shoulder and upper arm, initial encounter
CPT/HCPCS: 73221

== ENCOUNTER 2021-06-11 07:58 | Day surgery (SDC) | payer OTHER, SELFPAY ==
[2021-06-11] VITALS (7 sets, daily range): BP systolic 85–134; BP diastolic 52–90; PULSE 50–62; RESP 15–16; TEMP 36.2–36.6; O2SAT 96–98; BMI 29.0
--- NOTE | 2021-06-11 08:39 | HP.PCM_ITS ---
History and Physical Date of Admission: 06/11/21 Intake Visit Reasons: C-SCOPE Chief Complaint: slurred speech Allergies No Known Allergies Allergy (Verified 05/31/21 14:44) Medications lovastatin 20 mg PO DAILY 10/18/16 [History Confirmed 05/31/21] tamsulosin 0.4 mg PO DAILY 12/12/18 [History Confirmed 05/31/21] famotidine 20 mg PO BID #60 tab 12/14/18 [Rx Confirmed 05/31/21] clonazepam 0.5 mg tablet 0.5 mg PO tab 07/27/20 [History Confirmed 05/31/21] escitalopram oxalate 10 mg tablet 10 mg PO DAILY 07/27/20 [History Confirmed 05/31/21] apixaban 5 mg tablet tablet PO 05/31/21 [History Confirmed 05/31/21] modafinil 200 mg tablet ea PO 05/31/21 [History Confirmed 05/31/21] PFSH Medical History H/o left ankle surgery h/o skin cancer removal HTN (hypertension) Hyperlipidemia Surgical History H/O lumbosacral spine surgery Family History Father Bladder cancer Colon cancer Skin cancer Hypertension Sister Hypertension Acute glaucoma Sister Diabetes Social History household members: spouse housing: house number of children: 4 current occupational status: employed Smoking Status: Never smoker alcohol intake: never what type of physical activity do you participate in: none seatbelt use: always do you feel safe at home: Yes HPI HPI HPI: DESHAWN DODGE, is a 65 M who presents to the office today for surgical consultation regarding a screening colonoscopy. The patient is referred by Angelita Raphael PA-C and written copy my surgical consult recommendations will return to her. The patient has had a recent DVT and pulmonary embolus. Apparently the DVT to involve his right leg and the PE was diagnosed August 2020. Colonoscopy to assist with screening is recommended. Records suggest previous colonoscopy was August 01, 2011 and was normal. Among his other medications the patient is therapeutically on Eliquis. He also is on chronic famotidine therapy. He is being referred because the DVT was an unknown etiology. There is concern that observation for occult malignancy should be pursued. He previously was on famotidine treatment but states that has ceased. He previously had some epigastric discomfort reflux but those symptoms seem to have improved. He denies bright red blood per rectum or melena. He denies any unexpected weight loss though he does state that he has lost about 20 pounds over the past year. He does not have a particular reason for the weight loss. 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 ROS General General: No weight change, appetite, fatigue, colon cancer, breast cancer or weakness HEENT HEENT: No difficulty swallowing, eye injury, eye surgery, swollen glands or hoarseness Endo Endocrine: No thyroid disease, diabetes mellitus, thyroid cancer, Hair loss, heat intolerance or cold intolerance Skin Skin: Yes changing moles; No rash Breast Breast: No left breast lump, right breast lump, nipple discharge, breast pain, abnormal mammogram, abnormal US or breast enlargement Musc Musculoskeletal: Yes back problems and arthritis; No rheumatoid arthritis, gout or joint pain Cardio Cardiovascular: No murmur, pacemaker, heart disease, atrial fibrillation, high blood pressure, heart attack, heart stent, palpitations, shortness of breat with exertion or chest pain Psych Psychiatric: Yes depression and anxiety; No hearing voices Resp Respiratory: No shortness of breath, No sleep apnea, No cough, No COPD, No asthma, No emphysema and No wheezing Gastro Gastrointestinal: No abdominal pain, No nausea or vomiting, No diarrhea, No constipation, No blood in stool, No acid reflux, Yes hemorrhoids, No ulcers, No gallbladder problem and No black,tarry stools Smith Hematologic: Yes blood thinners, No blood disorders, No bleeding, No anemia and Yes blood clots Neuro Neurologic: No system reviewed and no additional complaints, except as documented, No as per HPI, No abnormal gait, No abnormal hearing, No abnormal movements, No abnormal speech, No behavioral changes, No burning sensations, No confusion, No convulsions, No disequilibrium, No dizziness, No localized weakness, No frequent falls, No headache(s), No lack of coordination, No loss of vision, No memory loss, Yes numbness, No other visual disturbances, No radicular pain, No restless legs, No sensory deficit, No syncope, Yes tingling, No tremor(s), No weakness and No other Exam Const General: cooperative, comfortable and no acute distress Nutritional Appearance: average body habitus Orientation: alert and awake HENMT Head: normal to inspection Resp Effort & Inspection: normal respiratory effort Auscultation: clear to auscultation bilaterally Cardio Rate: regular rate Rhythm: regular rhythm GI Palpation: soft and no hepatosplenomegaly Auscultation: normal bowel sounds Skin General: no rashes or lesions noted Neuro General: patient alert and patient awake Extrem General: no calf tenderness Psych Appearance: grossly normal Assessment and Plan Assessment and Plan (1) Screening for intestinal cancer: Status: Acute (2) Oropharyngeal dysphagia: Status: Chronic Plan - Dr. Deshawn Merino MD: I recommended the patient a combined esophagogastroduodenoscopy and colonoscopy with possible biopsy or polypectomy as indicated. He is aware of technique, benefit, risk, alternatives. He does have a family history with a father had colon cancer. The patient thinks he has had a previous colonoscopy but is absol utely unclear of the date. He does not recall having had a previous upper endoscopy though he does have some esophageal dysphagia. A request has been made to assist with a search for an occult malignancy. I recommend to the patient a combined esophagogastroduodenoscopy with colonoscopy with possible biopsy or polypectomy as indicated. He is aware of technique, benefit, risk of alternatives. We will have him hold his Eliquis 2 days prior to the procedure. I anticipate using monitored anesthesia care. I appreciate the opportunity of assisting with surgical care. Copy: ALVINA Joseph M.D., F.A.C.S. Coding Level of Care Code 85131 Diagnoses Screening for intestinal cancer Z12.10 Oropharyngeal dysphagia R13.12 05/31/21 1524<Electronically signed by Deshawn Merino MD>Date Deshawn Merino MD I have re-examined the patient. There are no clinical changes since date of exam.
--- NOTE | 2021-06-11 08:46 | SUR.PREOP ---
pt. states results tanish liquied today was clear yesterday, Dr. Merino notified and order recieved to give tap water enema. tap water enema given having clear yellow results and can see bottom of toilet.
[2021-06-11] MEDS: Lactated Ringers 1,000 ML 15 ML IV (08:55)
--- NOTE | 2021-06-11 09:00 | IMM_PTH ---
PATIENT: DESHAWN DODGE LOC: EN U#:[id number] AGE/SX: 65/M ROOM: RE06/11/[address]: Dr. Deshawn Merino MD : 1955 BED: DIS: 06/11/2021 SPEC #: [id number] RECD: 06/11/21 13:51 STATUS: AMY RECaren #: [id number] AGUEDA: 06/11/21 09:[address]: Deshawn Merino DEPT: IMMUNOHISTOCHEMISTRY RECD BY: Aleida Flowers ENTERED: 06/11/21 13:52 SP TYPE: IMMUNO OTHR DR: AVELINO Joseph Tissues: B - Stomach, NOS C - Esophagus, NOS Procedures: H Pylori (initial) P53 (initial) KI-67 (add) PHYSICIAN & INSTITUTION [place] [phone] SPECIMEN INFORMATION: Tissue Source: B ? Antrum biopsy, C ? Distal esophagus biopsy Clinical Info: Screening for intestinal cancer, oropharyngeal dysphagia Specimen Number: [id number] B & C CPT code: 15366 x2, 91022 METHODOLOGY: Deparaffinized sections of prefer/formalin-fixed tissue or PAP/DQ stained slides are incubated with monoclonal/polyclonal antibodies/oligonucleotide probes. Localization is made via biotin free immunoperoxidase method. Appropriate controls are performed and reacted as expected. Results on target cell population are indicated in the following table: RESULTS: ANTIBODY / CLONE RESULT Block B H Pylori (polyclonal) negative Block C P53 (DO-7) negative Ki-67 (30-9) positive, very low These tests were developed and their performance characteristics determined by [facility]. They may not have been cleared or approved by the U.S. Food and Drug Administration. The FDA has determined that such clearance or approval is not necessary. The above immunohistochemical/dualISH markers are ordered and reviewed by the pathologist. INTERPRETATION: B. Antrum biopsy: Negative for Helicobacter pylori organisms. C. Distal esophagus, biopsy: Negative for dysplasia. SJ:max 06/15/2021
--- NOTE | 2021-06-11 09:00 | EGD_PTH ---
PATIENT: DESHAWN DODGE LOC: EN U#:[id number] AGE/SX: 65/M ROOM: RE06/11/[address]: Dr. Deshawn Merino MD : 1955 BED: DIS: 06/11/2021 SPEC #: [id number] RECD: 06/11/21 10:44 STATUS: AMY NGOZI #: [id number] AGUEDA: 06/11/21 09:[address]: Deshawn Merino DEPT: SURGICAL PATHOLOGY RECD BY: Regina Edwards ENTERED: 06/11/21 11:44 SP TYPE: EGD BIOPSY OT DR: AVELINO Joseph Tissues: A - Duodenum, NOS B - Gastric mucous membrane C - Esophagus, NOS Procedures: Surgery Specimen Level IV Alcian Blue/PAS (control) HEADER OPERATION: Colonoscopy, EGD ([facility] [place]) PRE-OP DIAGNOSIS: Screening for intestinal cancer, oropharyngeal dysphagia TISSUE SUBMITTED: A ? Duodenum biopsy, B ? Antrum biopsy for histo and H. pylori, C ? Distal esophagus biopsy MICROSCOPIC DIAGNOSIS A. Duodenum, biopsy: A fragment of duodenal mucosa with mild Spike gland hyperplasia. B. Antrum, biopsy: Mild gastritis. See microscopic description and comment. C. 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 Moderate chronic inflammation. Negative for dysplasia. See comment. SJ:max 06/14/2021 COMMENT B. The results of immunohistochemistry for Helicobacter pylori will be reported separately ([id number]). C. Immunohistochemistry ([id number]) for P53 and Ki-67 will be performed and results will be reported separately. Alcian blue/PAS stain with matched control is used in the evaluation of the specimen. MICROSCOPIC DESCRIPTION Slides are reviewed. B. The specimen shows fragments of gastric mucosa with chronic inflammatory cell infiltrates in the lamina propria consisting of lymphocytes and plasma cells, consistent with mild chronic gastritis. GROSS DESCRIPTION A - Received in fixative is one container labeled with the patient's name and designated duodenum biopsy. The specimen consists of one irregular fragment of light bowman soft tissue that measures 0.4 x 0.4 x 0.1 cm. The specimen is totally submitted in one cassette. B - Received in fixative is one container labeled with the patient's name and designated antrum biopsy. The specimen consists of one irregular fragment of light bowman soft tissue that measures 0.3 x 0.3 x 0.1 cm. The specimen is totally submitted in one cassette. C - Received in fixative is one container labeled with the patient's name and designated distal esophagus biopsy. The specimen consists of multiple irregular fragments of light bowman soft tissue that in aggregate measure 2 x 0.5 x 0.1 cm. The specimen is totally submitted in one cassette. / SJ:rg 06/11/21 TC:3 CPT: 37477 x3, 73468
--- NOTE | 2021-06-11 10:25 | OP.EGD_ITS ---
Patient Name: Dom Dorsey Procedure Date: 06/11/2021 9:49 AM Date of : 1955 Age: 65 Procedure: Upper GI endoscopy Indications: Dysphagia, Heartburn Providers: Dom Merino MD Medicines: See the Anesthesia note for documentation of the administered medications Complications: No immediate complications. Procedure: Pre-Anesthesia Assessment: - Prior to the procedure, a History and Physical was performed, and patient medications and allergies were reviewed. The patient's tolerance of previous anesthesia was also reviewed. The risks and benefits of the procedure and the sedation options and risks were discussed with the patient. All questions were answered, and informed consent was obtained. Prior Anticoagulants: The patient has taken no previous anticoagulant or antiplatelet agents. ASA Grade Assessment: II - A patient with mild systemic disease. After reviewing the risks and benefits, the patient was deemed in satisfactory condition to undergo the procedure. After obtaining informed consent, the endoscope was passed under direct vision. Throughout the procedure, the patient's blood pressure, pulse, and oxygen saturations were monitored continuously. The Endoscope was introduced through the mouth, and advanced to the second part of duodenum. The upper GI endoscopy was accomplished without difficulty. The patient tolerated the procedure well. Scope In: 9:55:10 AM Scope Out: 10:04:30 AM Total Procedure Duration Time 0 hours 9 minutes 20 seconds Findings: LA Grade A (one or more mucosal breaks less than 5 mm, not extending between tops of 2 mucosal folds) esophagitis with no bleeding was found 40 cm from the incisors. Biopsies were taken with a cold forceps for histology. A small hiatal hernia was present. Diffuse mild inflammation characterized by erythema was found in the gastric antrum. Biopsies were taken with a cold forceps for histology. The examined duodenum was normal. Biopsies were taken with a cold forceps for histology. Impression: - LA Grade A reflux esophagitis. Rule out Cui's esophagus. Biopsied. - Small hiatal hernia. - Chronic gastritis. Biopsied. - Normal examined duodenum. Biopsied. Recommendation: - Await pathology results. - Discharge patient to home. - Resume previous diet. - Continue present medications. - Use Prilosec (omeprazole) 40 mg PO daily Pending pathology might consider manometry Procedure Code(s): --- Professional --- 19697, Esophagogastroduodenoscopy, flexible, transoral; with biopsy, single or multiple Diagnosis Code(s): --- Professional --- K21.0, Gastro-esophageal reflux disease with esophagitis K44.9, Diaphragmatic hernia without obstruction or gangrene K29.50, Unspecified chronic gastritis without bleeding R13.10, Dysphagia, unspecified R12, Heartburn CPT copyright 2017 [employer]. All rights reserved. The codes documented in this report are preliminary and upon underwriting support manager review may be revised to meet current compliance requirements. Dom Merino MD 06/11/2021 10:25:14 AM This report has been signed electronically. Number of Addenda: 0 Note Initiated On: 06/11/2021 9:49 AM
--- NOTE | 2021-06-11 10:26 | OP.CCLET_ITS ---
06/11/2021 Dom Esparza [address] [place] [address] Re : Upper GI endoscopy procedure for Dom Dorsey Dear Dr. Esparza This procedure was performed on Friday, June 11, 2021. My impressions and recommendations are as follows: Impressions : - LA Grade A reflux esophagitis. Rule out Cui's esophagus. Biopsied. - Small hiatal hernia. - Chronic gastritis. Biopsied. - Normal examined duodenum. Biopsied. Recommendations : - Await pathology results. - Discharge patient to home. - Resume previous diet. - Continue present medications. - Use Prilosec (omeprazole) 40 mg PO daily Pending pathology might consider manometry My findings are described in the full procedure note, which is enclosed. If I can be of further assistance, please feel free to contact me at Doctor phone number(s): Work: . Sincerely, Dom Merino MD 06/11/2021 10:25:14 AM This report has been signed electronically.
--- NOTE | 2021-06-11 10:30 | OP.COLON_ITS ---
Patient Name: Dom Dorsey Procedure Date: 06/11/2021 10:06 AM Date of : 1955 Age: 65 Procedure: Colonoscopy Indications: Screening for colorectal malignant neoplasm Providers: Dom Merino MD Medicines: See the Anesthesia note for documentation of the administered medications Patient Profile: Last Colonoscopy: more than 10 years ago. Complications: No immediate complications. Procedure: Pre-Anesthesia Assessment: - Prior to the procedure, a History and Physical was performed, and patient medications and allergies were reviewed. The patient's tolerance of previous anesthesia was also reviewed. The risks and benefits of the procedure and the sedation options and risks were discussed with the patient. All questions were answered, and informed consent was obtained. Prior Anticoagulants: The patient has taken no previous anticoagulant or antiplatelet agents. ASA Grade Assessment: II - A patient with mild systemic disease. After reviewing the risks and benefits, the patient was deemed in satisfactory condition to undergo the procedure. After I obtained informed consent, the scope was passed under direct vision. Throughout the procedure, the patient's blood pressure, pulse, and oxygen saturations were monitored continuously. The Colonoscope was introduced through the anus and advanced to the cecum, identified by appendiceal orifice and ileocecal valve. The colonoscopy was performed without difficulty. The patient tolerated the procedure well. The quality of the bowel preparation was good. The ileocecal valve and the appendiceal orifice were photographed. Scope In: 10:07:26 AM Scope Withdrawal Time 0 hours 8 minutes 47 seconds Scope Out: 10:19:27 AM Total Procedure Duration Time 0 hours 12 minutes 1 second Findings: The digital rectal exam findings include non-thrombosed internal hemorrhoids and internal hemorrhoids that prolapse with straining, but spontaneously regress to the resting position (Grade II). The exam was otherwise without abnormality. Impression: - Non-thrombosed internal hemorrhoids and internal hemorrhoids that prolapse with straining, but spontaneously regress to the resting position (Grade II) found on digital rectal exam. - The examination was otherwise normal. - No specimens collected. Recommendation: - Discharge patient to home. - Resume previous diet. - Continue present medications. - Repeat colonoscopy in 10 years for screening purposes. Procedure Code(s): --- Professional --- 87809, Colonoscopy, flexible; diagnostic, including collection of specimen(s) by brushing or washing, when performed (separate procedure) Diagnosis Code(s): --- Professional --- Z12.11, Encounter for screening for malignant neoplasm of colon K64.1, Second degree hemorrhoids CPT copyright 2017 [employer]. All rights reserved. The codes documented in this report are preliminary and upon slip dumper review may be revised to meet current compliance requirements. Dom Merino MD 06/11/2021 10:29:24 AM This report has been signed electronically. Number of Addenda: 0 Note Initiated On: 06/11/2021 10:06 AM
--- NOTE | 2021-06-11 10:30 | OP.CCLET_ITS ---
06/11/2021 Dom Esparza [address] [address] Re : Colonoscopy procedure for Dom Dorsey Dear Dr. Esparza This procedure was performed on Friday, June 11, 2021. My impressions and recommendations are as follows: Impressions : - Non-thrombosed internal hemorrhoids and internal hemorrhoids that prolapse with straining, but spontaneously regress to the resting position (Grade II) found on digital rectal exam. - The examination was otherwise normal. - No specimens collected. Recommendations : - Discharge patient to home. - Resume previous diet. - Continue present medications. - Repeat colonoscopy in 10 years for screening purposes. My findings are described in the full procedure note, which is enclosed. If I can be of further assistance, please feel free to contact me at Doctor phone number(s): Work: . Sincerely, Dom Merino MD 06/11/2021 10:29:24 AM This report has been signed electronically.
== END 2021-06-11 11:11 ==
LOC: EN 08:06 → AC 08:06
PROVIDERS: PCP Physician Assistant; Referring Provider Physician Assistant; Visit Provider Surgery
PROC: 0DJD8ZZ Inspection of Lower Intestinal Tract, Via Natural or Artificial Opening Endoscopic (ICD-10-PCS; CPT 45378; principal; 2021-06-11 08:55)
DX: Z12.11 Encounter for screening for malignant neoplasm of colon (principal); K29.50 Unspecified chronic gastritis without bleeding; K21.00 Gastro-esophageal reflux disease with esophagitis, without bleeding; K44.9 Diaphragmatic hernia without obstruction or gangrene; K64.1 Second degree hemorrhoids; I10 Essential (primary) hypertension; E78.5 Hyperlipidemia, unspecified; F32.A Depression, unspecified; F41.9 Anxiety disorder, unspecified; G25.81 Restless legs syndrome; Z80.0 Family history of malignant neoplasm of digestive organs; Z85.828 Personal history of other malignant neoplasm of skin; Z86.718 Personal history of other venous thrombosis and embolism; Z86.711 Personal history of pulmonary embolism; Z79.01 Long term (current) use of anticoagulants; Z79.899 Other long term (current) drug therapy
CPT/HCPCS: 43239; 45378; 88305; 88341; 88342; J7120; J2405

== ENCOUNTER 2021-07-01 06:54 | Day surgery (SDC) | payer OTHER, SELFPAY ==
[2021-07-01 08:24] VITALS: BP 135/94; PULSE 68; RESP 16; TEMP 35.9; O2SAT 98
== END 2021-07-01 08:24 ==
LOC: EN 06:55
PROVIDERS: Surgery; PCP Physician Assistant; Referring Provider Physician Assistant; Visit Provider Surgery
PROC: F00ZJWZ Instrumental Swallowing and Oral Function Assessment using Swallowing Equipment (ICD-10-PCS; CPT 43235; principal; 2021-07-01 07:25)
DX: K21.9 Gastro-esophageal reflux disease without esophagitis (principal)
CPT/HCPCS: 91010; 91013

== ENCOUNTER 2021-07-03 19:43 | Emergency (ER) | payer OTHER, SELFPAY ==
[2021-07-03 19:44] VITALS: BP 139/83; PULSE 71; RESP 16; TEMP 36.2; O2SAT 93; BMI 31.0
--- NOTE | 2021-07-03 20:30 | EDS_ITS ---
HPI History of Present Illness Chief Complaint: Lower Extremity Injury Informant: patient and spouse/S.O. Onset/Context/Timing Onset: Today Context: - (Awoke with symptoms, have been persistent all day) Timing: Continuous Quality of Pain: Aching Location: Both calves Current Severity: Moderate Maximum Severity: Moderate Worsened by: Nothing Relieved by: Nothing but has not tried any medications Associated Symptoms Associated Symptoms: Negative for Parasthesia, Weakness and Loss of Funtion Narrative Narrative: Patient has history of DVT/PE for reasons that are unknown, he has been on Eliquis since August, following with Dr. Hall, they state that in February he did still have some evidence of chronic DVT. Today he woke up with discomfort in both calves that feels similar to when he was diagnosed with them. He denies any chest pain shortness of breath, fevers, chills, any other systemic symptoms. No paresthesias in the feet, no cyanosis. He denies any obvious explanation for muscular pain the day before such as overuse, injury. He is on Eliquis. He has not missed any doses, or changed the medication or discontinued it under the direction of anyone recently. [facility] Medical History Anxiety Back pain Cardiology follow-up encounter Depression DVT (deep venous thrombosis) Gastric reflux H/o left ankle surgery h/o skin cancer removal Headache High cholesterol History of edema History of stress test HTN (hypertension) Hyperlipidemia Leg cramps Loss of hearing Non-smoker Pulmonary embolism Restless legs Wears contact lenses Home Medications lovastatin 20 mg PO DAILY 10/18/16 [History Last Taken 12/11/18 09:00] tamsulosin 0.4 mg PO DAILY 12/12/18 [History Last Taken 12/11/18 09:00] clonazepam 0.5 mg tablet 0.25 mg PO QHS tab 07/27/20 [History Last Taken Unknown] escitalopram oxalate 10 mg tablet 10 mg PO DAILY 07/27/20 [History Last Taken Unknown] apixaban 5 mg tablet 5 mg PO BID 05/31/21 [History Last Taken 06/08/21] modafinil 200 mg tablet 100 mg PO PRN PRN 05/31/21 [History Last Taken Unknown] omeprazole 40 mg PO DAILY #90 cap 06/11/21 [Rx Last Taken Unknown] Allergy/AdvReac Type Severity Reaction Status Date / Time No Known Allergies Allergy Verified 07/03/21 19:44 Family History Father Bladder cancer Colon cancer Skin cancer Hypertension Sister Hypertension Acute glaucoma Sister Diabetes Surgical History H/O lumbosacral spine surgery History of esophagogastroduodenoscopy (EGD) Social History household members: spouse housing: house number of children: 4 current occupational status: employed Smoking Status: Never smoker alcohol intake: never what type of physical activity do you participate in: none seatbelt use: always do you feel safe at home: Yes ROS ROS ED Constitutional Constitutional ED: Denies chills or fever(s) Musculoskeletal Musculoskeletal: Reports extremity pain; Denies neck pain Integumentary Denies Abrasions, rash or wounds Neurologic Neurologic: Denies paresthesias or weakness EXAM Physical Exam Const Vital Signs: 07/03/21 19:44 Temperature 97.2 F L Temperature Source Temporal Pulse Rate 71 Respiratory Rate 16 Blood Pressure 139/83 H Blood Pressure Mean 101 Pulse Ox 93 Oxygen Delivery Method Room Air Positive well nourished and well developed General Appearance ED: well developed and NAD Neck full ROM and supple Back/Spine normal ROM and normal to inspection Extremity normal to inspection, full ROM, no calf tenderness and no pedal edema Extremity Narrative: No varicosities on either lower extremity. No rash, abscess, or other tender area. No palpable cords. Negative Ricardo bilaterally. Neuro oriented x3, no focal motor deficits and no sensory deficits noted Sensorium / Orientation: alert Psych mental status grossly normal and thought process normal Skin no wounds Skin Narrative: Normal-appearing skin both lower extremities throughout. Rashes: no rashes MDM MDM MDM Narrative Medical decision making narrative: Reassured patient, he unlikely has an acute DVT while therapeutic on Eliquis, we discussed the dosing, he is taking it appropriately, 1 tablet twice daily. However, I think it is totally reasonable given his symptoms to obtain an outpatient venous duplex Doppler ultrasound, which is not available at the time the patient presents, nor is it available tomorrow on Monday. They are comfortable with this plan, I reassured him, he has good pulses distally, no sign of compartment syndrome or any other acute emergent limb threatening problem and can safely follow-up for outpatient ultrasound. Discharge Plan Triage Chief Complaint: Lower Extremity Injury ED Provider: Derian Kohler Dx/Rx/DC Orders Clinical Impression: Bilateral calf pain Instructions: ED Muscle Strain, Extremity Prescriptions: No Action clonazepam 0.5 mg tablet 0.25 mg PO QHS RF: 0 escitalopram oxalate [Lexapro] 10 mg tablet 10 mg PO DAILY RF: 0 apixaban 5 mg tablet 5 mg PO BID RF: 0 modafinil [Provigil] 200 mg tablet 100 mg PO PRN PRN (Reason: UNKNOWN) RF: 0 lovastatin 20 MG tablet 20 mg PO DAILY RF: 0 tamsulosin 0.4 MG capsule 0.4 mg PO DAILY RF: 0 omeprazole 40 mg capsule,delayed release(DR/EC) 40 mg PO DAILY Qty: 90 RF: 1 Primary Care Provider: Angelita Raphael Referrals: Tomás Hall MD [STAFF PHYSICIAN] - As Needed Angelita Raphael PA [Primary Care Provider] - Disposition Disposition: Home, Self Care
[2021-07-03 20:45] VITALS: PULSE 78; RESP 17; TEMP 36.8; O2SAT 98
== END 2021-07-03 20:46 | disposition home or self-care (01) ==
PROVIDERS: Emergency Provider Emergency Medicine; PCP Physician Assistant
DX: M79.661 Pain in right lower leg (principal); M79.662 Pain in left lower leg; E78.5 Hyperlipidemia, unspecified; F32.A Depression, unspecified; F41.9 Anxiety disorder, unspecified; I10 Essential (primary) hypertension; E78.00 Pure hypercholesterolemia, unspecified; K21.9 Gastro-esophageal reflux disease without esophagitis; G25.81 Restless legs syndrome; Z86.718 Personal history of other venous thrombosis and embolism; Z79.01 Long term (current) use of anticoagulants; Z79.899 Other long term (current) drug therapy
CPT/HCPCS: 99282

== ENCOUNTER 2021-07-21 07:59 | Outpatient (CLI) | payer OTHER, SELFPAY ==
--- NOTE | 2021-07-21 08:00 | VDLE_ITS ---
Reason For Study: BLE PAIN RIGHT LEFT GSV is normal. GSV is normal. CFV is compressible, spontaneous, phasic, CFV is compressible, spontaneous, phasic, competent and demonstrates normal competent, and demonstrates normal augmentation. augmentation. FV is compressible, spontaneous, phasic, FV is compressible, spontaneous, phasic, competent and demonstrates normal competent and demonstrates normal augmentation. augmentation. POP V is compressible, spontaneous, phasic, POP V is compressible, spontaneous, phasic, competent and demonstrates normal competent and demonstrates normal augmentation. augmentation. T/P Trunk is compressible. T/P Trunk is compressible. RT PerV is compressible. PTV is compressible. PTV is partially compressible, no longer LT PerV is compressible. dilated C/W chronic dvt. Procedure Exam performed in department. VL/Venous Duplex US - Michael Extrem Interpretation Summary No evidence for acute deep venous thrombosis bilateral lower extremities with p atent and compressible bilateral great saphenous veins The right posterior tibial vein is only partially compressible more consistent with chronic deep venous thrombosis. Ordering Physician: Dom Merino Referring Physician: Angelita Raphael Performed By: Damaris Salmeron, RDCS, RVT
== END 2021-07-21 23:59 | disposition short-term general hospital (02) ==
LOC: CVS 08:00
PROVIDERS: PCP Physician Assistant; Referring Provider Surgery; Visit Provider Surgery
DX: M79.605 Pain in left leg (principal); M79.604 Pain in right leg
CPT/HCPCS: 93970

== ENCOUNTER 2022-06-20 05:47 | Day surgery (SDC) | payer OTHER, SELFPAY ==
--- NOTE | 2022-06-16 16:17 | EKG12_ITS ---
Test Reason : Blood Pressure : / mmHG Vent. Rate : 065 BPM Atrial Rate : 065 BPM P-R Int : 174 ms QRS Dur : 100 ms QT Int : 398 ms P-R-T Axes : 002 -15 -12 degrees QTc Int : 413 ms Normal sinus rhythm Inferior infarct , age undetermined Abnormal ECG Confirmed by ELY PACKER, KIM ([id number]), managing editor GABE HUSSEIN ([id number]) on 06/21/2022 10:11:23 AM Referred By: Dom Merino Confirmed By:LILA GRAVES MD
[2022-06-16 16:53] LABS: Hematocrit 42.5 % (40-54); Hemoglobin 14.6 g/dL (13.0-16.5); Mean Corp Hgb Conc 34.4 g/dL (32-36); Mean Corpuscular Hgb 31.3 pg (27.0-32.0); Mean Corpuscular Volume 91.2 fL (80-94); Mean Platelet Vol. 11.5 fl (6.2-12.0); Platelet Count 181 K/mm3 (150-450); RBC Distribution Width CV 12.6 % (11.6-14.6); RBC Distribution Width SD 41.8 fl (35.1-43.9); Red Blood Count 4.66 M/mm3 (4.6-6.2); White Blood Count 4.7 K/mm3 (4.4-11.0)
[2022-06-16 17:32] LABS: Anion Gap 7 (5-15); BUN 35 mg/dL (7-18); BUN/Creat Ratio 33.7 RATIO (10-20); Calcium,Total 8.9 mg/dL (8.5-10.1); Chloride 108 mmol/L (98-107); Creatinine, Serum 1.04 mg/dL (0.70-1.30); EST Glomerular Filtration Rate 76 mL/min (>60); Est Glom Filt Rate - Afr Amer 92 mL/min (>60); Glucose 89 mg/dL (74-106); Potassium 4.1 mmol/L (3.5-5.1); Sodium Level 142 mmol/L (136-145)
[2022-06-20] VITALS (19 sets, daily range): BP systolic 113–148; BP diastolic 67–98; PULSE 59–92; RESP 16–20; TEMP 36.3–36.6; O2SAT 88–95; BMI 31.9
--- NOTE | 2022-06-20 06:16 | HP.PCM_ITS ---
History and Physical Date of Admission: 06/20/22 Chief Complaint: Update history and physical for Carolyn Avina 06/20 Match Up Worker Required: No Accompanied by: Is patient in pain?: No Allergies No Known Allergies Allergy (Verified 05/26/22 14:35) Medications lovastatin 20 mg tablet 20 mg PO DAILY 10/18/16 [History Confirmed 05/26/22] tamsulosin 0.4 mg capsule 0.4 mg PO DAILY 12/12/18 [History Confirmed 05/26/22] escitalopram oxalate 20 mg tablet 20 mg PO DAILY 05/26/22 [History Confirmed 05/26/22] meloxicam 7.5 mg tablet 7.5 mg PO DAILY 05/26/22 [History Confirmed 05/26/22] omeprazole 40 mg capsule,delayed release 20 mg PO DAILY 05/26/22 [History] ropinirole 1 mg tablet 1 mg PO DAILY 05/26/22 [History Confirmed 05/26/22] PFSH Medical History?(Updated 05/26/22 @ 14:33 by Damaris Greene) Anxiety Back pain Barretts esophagus Cardiology follow-up encounter Depression DVT (deep venous thrombosis) Gastric reflux H/o left ankle surgery h/o skin cancer removal Headache High cholesterol History of edema History of stress test HTN (hypertension) Hyperlipidemia Leg cramps Loss of hearing Non-smoker Pulmonary embolism Restless legs Wears contact lenses Surgical History? H/O lumbosacral spine surgery History of esophagogastroduodenoscopy (EGD) Family History? Father Bladder cancer Colon cancer Skin cancer HypertensionSister Hypertension Acute glaucomaSister Diabetes Social History? household members:? spouse housing:? house number of children:? 4 current occupational status:? employed Smoking Status:? Never smoker alcohol intake:? never what type of physical activity do you participate in:? none seatbelt use:? always do you feel safe at home:? Yes HPI HPI HPI: Patient is a 66 y/o M who presents for an update history and physical for an elective laparoscopic hiatal hernia repair. Patient denies any hospitalizations or illnesses since his last visit. Patient notes approximately 1 year ago, he had a blood clot in the lower extremities and a PE. Patient was on anticoagulation for a short time period. He has since been taken off. Patient denies complications or side effects with anesthesia. He denies any cardiac history and pulmonary history. Patient's previous history per Dr. 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 The patient was initially referred to me because of a DVT with pulmonary embolus.? An upper or lower scope was done.? No source for malignancy was identified.? He was identified as having a hiatal hernia with Cui's esophagus.? This was felt to be a premalignant condition.? He has been on omeprazole for the upper endoscopy exam.? He is continued on it at this time.? The patient is very much interested in pursuing surgical means of limiting reflux disease and limiting his risk because of the Cui's.? He is aware that he will require lifetime surveillance of the Cui's esophagus.? Since his last visit he had esophageal manometry performed on July 01, 2021.? This demonstrated 10 swallows analyzed with good bolus clearance and normal swallowing mechanism.? The LES residual tone slightly elevated.? This was felt not to be of consequence. The patient still is on apixaban therapy.? That was initiated August 2020.? The patient had venous duplex imaging per Dr. Tomás Hall at an outside institution demonstrating improvement of his DVT but not resolution.? That was done at the [facility]. 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 He no longer does any heavy lifting or straining.? The winter months are of less activity DESHAWN DODGE, is a 65 M who presents to the office today for surgical follow-up of reflux disease.? I initially saw this patient on May 31, 2021.? He had presented for screening colonoscopy.? He has had a recent DVT and pulmonary embolus August 2020.? Colonoscopy is recommended to rule out occult malignancy.? During review of systems is was directed that he has chronic esophageal dysphagia.? The colonoscopy of June 11, 2021 was not remarkable.? The esophagogastroduodenoscopy of the same day demonstrated reflux esophagitis with Cui's esophagitis small hiatal hernia and chronic gastritis.? He was initiated on omeprazole therapy 40 mg daily.? Pathology demonstrated unremarkable duodenum.? There is mild gastritis H. pylori negative.? Fragments of gastroesophageal mucosa with focal intestinal metaplasia was identified at the EG junction consistent with Ciu's.? Moderate chronic inflammation.? There is no evidence of any dysplasia. The patient presents today to discuss esophageal manometry and possible surgical treatment options.? He has been resumed back on his apixaban anticoagulation secondary to his August DVT/PE ROS General General: No weight change, appetite, fatigue, colon cancer, breast cancer or weakness HEENT HEENT: No difficulty swallowing, eye injury, eye surgery, swollen glands or hoarseness Endo Endocrine: No thyroid disease, diabetes mellitus, thyroid cancer, Hair loss, heat intolerance or cold intolerance Skin Skin: Yes changing moles; No rash Breast Breast: No left breast lump, right breast lump, nipple discharge, breast pain, abnormal mammogram, abnormal US or breast enlargement Musc Musculoskeletal: Yes back problems and arthritis; No rheumatoid arthritis, gout or joint pain Cardio Cardiovascular: No murmur, pacemaker, heart disease, atrial fibrillation, high blood pressure, heart attack, heart stent, palpitations, shortness of breat with exertion or chest pain Psych Psychiatric: Yes depression and anxiety; No hearing voices Resp Respiratory: No shortness of breath, No sleep apnea, No cough, No COPD, No asthma, No emphysema and No wheezing Gastro Gastrointestinal: No abdominal pain, No nausea or vomiting, No diarrhea, No constipation, No blood in stool, No acid reflux, Yes hemorrhoids, No ulcers, No gallbladder problem and No black,tarry stools Smith Hematologic: Yes blood thinners, No blood disorders, No bleeding, No anemia and Yes blood clots Neuro Neurologic: No system reviewed and no additional complaints, except as docume nted, No as per HPI, No abnormal gait, No abnormal hearing, No abnormal movements, No abnormal speech, No behavioral changes, No burning sensations, No confusion, No convulsions, No disequilibrium, No dizziness, No localized weakness, No frequent falls, No headache(s), No lack of coordination, No loss of vision, No memory loss, Yes numbness, No other visual disturbances, No radicular pain, No restless legs, No sensory deficit, No syncope, Yes tingling, No tremor(s), No weakness and No other Exam Const General: cooperative, healthy appearing, comfortable and no acute distress [facility] Head: normal to inspection Eyes General: appearance normal, both eyes and all related structures Neck Neck: normal visual inspection Neck mass: No Resp Effort & Inspection: normal respiratory effort Auscultation: clear to auscultation bilaterally Cardio Rate: regular rate Rhythm: regular rhythm GI Inspection: normal to inspection Palpation: soft Auscultation: normal bowel sounds Musc Cervical Spine: normal cervical lordosis Skin General: no rashes or lesions noted Neuro General: no focal motor deficits and CN's II-XI intact bilaterally Extrem General: normal to inspection Psych Appearance: grossly normal Affect: normal affect Assessment and Plan Assessment and Plan (1) Cui's esophagus determined by biopsy: ?Status:?Acute ?Plan: Dr. Merino will plan to perform a laparoscopic toupet fundoplication. Procedure details, risks and benefits have been reviewed. Patient has had the opportunity to ask and have questions answered. Patient verbally understands and agrees with the plan. Coding Level of Care Code No Charge Diagnoses Cui's esophagus determined by biopsy? K22.70 The patient has had an opportunity to ask and have questions answered. We reviewed his history physical and technical aspects of the procedures today. We anticipate proceeding with a laparoscopic repair of his hiatal hernia with a subsequent laparoscopic toupet procedure and a completion esophagogastroduodenoscopy. Deshawn Merino M.D., F.A.C.S.
--- NOTE | 2022-06-20 07:03 | DCINST_ITS ---
Discharge Instructions Diet Discharge Diet: - (Dietary and activity instructions as per your previously provided written information) Follow Up Care Please Follow Up With: Dom Merino MD When: Call [phone] for office appointment in approximately 10 days Test Results: Test results from this visit will be discussed in further detail at your follow- up appointment, if applicable. Discharge Plan Admission Attending Provider: Dom Merino Primary Care Provider: Angelita Raphael Discharge Orders/Prescriptions Prescriptions: No Action ropinirole 1 mg tablet 1 mg PO DAILY escitalopram oxalate 20 mg tablet 20 mg PO DAILY omeprazole 40 mg capsule,delayed release(DR/EC) 20 mg PO DAILY meloxicam 7.5 mg tablet 7.5 mg PO DAILY lovastatin 20 MG tablet 20 mg PO DAILY tamsulosin 0.4 MG capsule 0.4 mg PO DAILY Other Ambulatory Orders: 12 Lead EKG (Routine) Timeframe: [id number] Location: None Selected Ordered By: Dr. Dom Merino Referrals / Follow Up: Angelita Raphael PA [Primary Care Provider] - Disposition Disposition (needs filled in before D/C Order can be placed): Home, Self Care
[2022-06-20] MEDS: Lactated Ringers 1,000 ML 15 ML IV ×2 (07:05→11:19)
[2022-06-20] MEDS: Cefazolin 2 GM in 0.9% Normal Saline 100 ML IV (07:25)
[2022-06-20] MEDS: Bupivacaine Mpf 0.5% 30 ML VIAL (10:50)
--- NOTE | 2022-06-20 10:52 | PCM.OPRPT ---
Report of Operation Date of Procedure: 06/20/22 Pre-Operative Diagnosis: Gastroesophageal reflux disease with distal esophagus Cui's esophagus. Hiatal hernia Post-Operative Diagnosis: Same Surgery/Procedure Performed:: Laparoscopic repair of hiatal hernia with laparoscopic toupet procedure and follow-up esophagogastroduodenoscopy for inspection Description of Surgical Findings:: Timeout informed consent was obtained. 66-year-old gentleman was taken to the operating placed upon the table underwent general endotracheal ovation esthesia Ancef 2 g were given intravenous the abdomen was sterilely prepped and draped he had been placed in a low lithotomy position he was on a beanbag careful arm padding. Abdomen was then sterilely prepped and draped Ioban draping was used 0.5% Marcaine was used as a local anesthetic. A total of 30 cc was used. Skin sites were. Excised. Superior and slightly of the right umbilicus 5 mm Visiport technology was used to get clean access. The abdomen was insufflated with CO2 to a pressure of 10 mmHg pressure. 5 mm trocar inserted. No trocar injuries. 10 mm port was placed in the left. Midline epigastrium 2 more 5 ports in the left subcostal area and additional 5 incision was made in the epigastrium and a Casi retractor was inserted in the left lower liver was carefully supported. Inspection revealed that there was fibrofatty tissue completely obscuring view to the hiatus and each lew. Tedious harmonic Scalpel dissection and blunt dissection was required until finally the right lew and eventually the left lew could be identified. The short gastrics were rather short and there was significant fibrofatty adherence to the spleen. This had to be carefully transected with a scalpel. Small amount of oozing was secured with fibular hemostatic patches x2. Hemostasis appeared to be intact distally greater curvature was then elevated some of the enlarged short gastrics I placed several Hem-o-kenneth clips. Then I could see the left lew. Harmonic scalpel to incise and release adherence and then gradually and tediously was able to get circumferential dissection. Care was taken to keep the vagus nerve with the esophagus a [place] drain was placed this allowed me to elevate the EG junction was able to then completely released the posterior fat pad was able to then work approximately 6 to 8 cm within the mediastinum completely circumferentially dissected and free the distal esophagus and gaining mobility. There is A[place]ley no evidence of any esophageal or gastric injury. The esophagus had been nicely mobilized. I then used pledgeted 0 Ethibond sutures and approximated the crura with simple sutures. Used a 48 Lithuanian bougie to check the sizing. I did place a pledgeted suture anterior bili to further support the hiatus. Having achieved that I wrapped the fundus skin of the posterior aspect of the fundus to the crura with a 0 Ethibond. I then performed a 270 degree toupet wrap using 2-0 Ethibond to secure the esophagus to the epiphrenic ligament to the wrap portion of the stomach and then a running fashion over approximately 3 cm performed the right side of the wrap then flipped the left side of the wrap testing distance and then secured that using a 2-0 Ethibond of the stomach to the esophagus through the epiphrenic ligament. I then did approximately 3-3 and half centimeter length on that portion with a running 2-0 Ethibond. Inspection revealed posterior wrap appeared to be nicely intact with anterior esophageal wall still free. Hemostasis was intact. No fluids placed in the epigastrium I did a esophagogastroduodenoscopy as dictated in probation. EG junction appeared to be nicely compressed Cui's was identified but was not extensive the abdomen the stomach was insufflated there was some coffee-ground material in the stomach perhaps due to some of the stitching no evidence of any active bleeding scope was advanced into the duodenum that was unremarkable scope was retroflexed and several images of the wrap were performed scope was then placed antegrade and carefully removed. OG tube was replaced and the stomach was completely compressed. The abdomen again was inspected hemostasis had been nicely intact the splenic area was carefully inspected and was intact. The 10 mm trocar was then removed and a 0 Vicryl suture in a [id number] style was used to close that fascial incision. Skin edges approximated opted for Monocryl subdermal stitches. Steri-Strips Telfa OpSite dressings applied. Sponge and instrument and needle counts were reported the surgeon to be correct. Specimens none. Drains none. Blood loss minimal. The patient was taken to the recovery room in satisfied condition without apparent complication Dom Merino M.D., F.A.C.S. Surgeon: Dom Merino Type of Anesthesia: General Anesthesiologist: Qamar Cazares
--- NOTE | 2022-06-20 12:38 | SUR.PHASEI ---
PATIENT STATES HE HAS ACHY PAIN IN LEFT SHOULDER. RATING IT AT A LEVEL 6/10. NO CHEST PAIN. I TOLD HIM IT COULD BE FROM POSITIONING OR GAS BUILDUP. WILL CONTINUE TO MONITOR.
== END 2022-06-20 16:37 | disposition home or self-care (01) ==
LOC: SDC 05:48 → AC 05:49
PROVIDERS: PCP Physician Assistant; Referring Provider Surgery; Visit Provider Surgery
PROC: (CPT 43325; principal; 2022-06-20 07:10)
DX: K22.70 Barrett's esophagus without dysplasia (principal); K44.9 Diaphragmatic hernia without obstruction or gangrene; R13.10 Dysphagia, unspecified; E78.00 Pure hypercholesterolemia, unspecified; Z79.1 Long term (current) use of non-steroidal anti-inflammatories (NSAID); Z79.01 Long term (current) use of anticoagulants; Z79.899 Other long term (current) drug therapy; Z86.711 Personal history of pulmonary embolism; Z86.718 Personal history of other venous thrombosis and embolism
CPT/HCPCS: 43281; 00790; 36415; 80048; 85027; 93005; J7120; J2405

== ENCOUNTER 2024-06-21 15:06 | Emergency (ER) | payer OTHER, SELFPAY ==
[2024-06-21] VITALS (7 sets, daily range): BP systolic 114–155; BP diastolic 70–102; PULSE 71–87; RESP 16–29; TEMP 37.1–38.7; O2SAT 92–99; BMI 32.3
--- NOTE | 2024-06-21 15:20 | EKG12_ITS ---
Test Reason : Blood Pressure : */* mmHG Vent. Rate : 87 BPM Atrial Rate : 87 BPM P-R Int : 176 ms QRS Dur : 100 ms QT Int : 358 ms P-R-T Axes : 24 -20 -1 degrees QTcB Int : 430 ms Normal sinus rhythm Minimal voltage criteria for LVH, may be normal variant ( R in aVL ) Inferior infarct , age undetermined Cannot rule out Anterior infarct , age undetermined Abnormal ECG Confirmed by ELY PACKER, KIM ([id number]), editorial director GABE HUSSEIN ([id number]) on 06/26/2024 1:33:59 P M Referred By: Confirmed By: KIM GRAVES MD
--- NOTE | 2024-06-21 15:28 | EDS_ITS ---
HPI <MANUEL Rosales - Last Filed: 06/21/24 18:01> History of Present Illness Chief Complaint: Complaint Narrative Narrative: Patient is a 68-year-old male with history of depression, BPH, Cui's esophagus, GERD who presents to the emergency department for 2 weeks of generalized malaise, achiness. Over the last 3 days, he developed some difficulty urinating, painful urination. He did develop some fever and chills, went to his PCP today, the patient did have rigors, was tachycardic, and had a positive UA with nitrites and leukocytes. They then referred him to the emergency department. Patient states he does have a cough, denies any nausea or vomiting. Pay states most of his pain is in the suprapubic area. Patient states it feels like when he wants the PE cannot. PFSH <MANUEL Rosales - Last Filed: 06/21/24 18:01> [facility] Medical History History of hiatal hernia Barretts esophagus Loss of hearing Wears contact lenses Depression Anxiety High cholesterol Pulmonary embolism DVT (deep venous thrombosis) Back pain Headache Restless legs Gastric reflux Non-smoker Leg cramps History of edema History of stress test Cardiology follow-up encounter Hyperlipidemia HTN (hypertension) h/o skin cancer removal H/o left ankle surgery Home Medications ?Medication ?Instructions ?Recorded ?Last Taken ?Type lovastatin 20 mg tablet 20 mg PO DAILY 10/18/16 12/11/18 09:00 History tamsulosin 0.4 mg capsule 0.4 mg PO DAILY 12/12/18 12/11/18 09:00 History escitalopram oxalate 20 mg tablet 20 mg PO DAILY 05/26/22 Unknown History ropinirole 1 mg tablet 1 mg PO DAILY 05/26/22 Unknown History famotidine 20 mg tablet (Pepcid) 20 mg PO DAILY #60 tabs 07/19/22 Unknown Rx sulfamethoxazole 800 1 tab PO BID #14 tabs 06/21/24 Unknown Rx mg-trimethoprim 160 mg tablet (Bactrim DS) Allergy/AdvReac Type Severity Reaction Status Date / Time No Known Allergies Allergy Verified 06/21/24 15:07 Family History Father Bladder cancer Colon cancer Skin cancer Hypertension Sister Hypertension Acute glaucoma Sister Diabetes Surgical History Status post laparoscopic Elmer fundoplication History of esophagogastroduodenoscopy (EGD) H/O lumbosacral spine surgery Social History household members: spouse housing: house number of children: 4 current occupational status: employed Smoking Status: Never smoker alcohol intake: never what type of physical activity do you participate in: none seatbelt use: always do you feel safe at home: Yes ROS <MANUEL Rosales - Last Filed: 06/21/24 18:01> ROS ED ROS Narrative Constitutional: Negative for weight loss, weakness. Positive for fever, chills, rigors Eyes: Negative for vision loss, vision change, double vision ENT: Negative for any sore throat, ear pain, congestion Cardiovascular: Negative for any chest pain, tightness, palpitations Respiratory: Negative for any cough, sputum production, hemoptysis, dyspnea, dyspnea on exertion, orthopnea Gastrointestinal: Negative for any nausea, vomiting, diarrhea, constipation, blood in stool, blood in vomit. Positive for suprapubic pain : Negative for any urinary frequency. Positive for dysuria, urine retention, painful urination Muscle skeletal: Negative for any neck pain, back pain Neurological: Negative for any headache, syncope, dizziness Skin: Negative for any rashes, itching, abrasions, lacerations Psychiatric: Negative for any depression, anxiety, stress, suicidal ideation, homicidal ideation Hematologic: Negative for any excessive bruising, easy bleeding EXAM <MANUEL Rosales - Last Filed: 06/21/24 18:01> Physical Exam Narrative Exam Narrative: Vital signs reviewed. Patient on my initial evaluation did experience rigors, patient is fever and chilled here in the emergency department. HEET: Head normocephalic atraumatic, TMs clear bilaterally. Posterior pharynx is clear, dry mucous membranes. Nares clear bilaterally. Neck: Supple with no lymphadenopathy or tenderness. No signs of meningismus. Cardiac: Regular rate and rhythm no murmurs gallops or rubs, equal peripheral pulses bilaterally. Respiratory: Lungs clear to auscultation bilaterally. No chest tenderness. Abdomen: Soft,nondistended. No abdominal bruit or pulsatile masses. No hepatosplenomegaly. Tenderness to the suprapubic area, Extremities: No peripheral edema, no signs of gross trauma or deformity. Active full range of motion of all extremities. Neuro: Cranial nerves II through XII intact, no focal neurological deficits. Skin: Clean dry and intact with no rash, purpura, petechiae, vesicles or pustules. Backs/flank: No CVA tenderness, no midline spinal tenderness, no deformity. Psych: Normal mood and affect. No SI, HI or acute psychosis. Const Vital Signs: 06/21/24 15:07 06/21/24 15:09 06/21/24 15:20 Temperature 101.2 F H 101.2 F H Temperature Source Oral Oral Pulse Rate 87 87 Respiratory Rate 16 18 Blood Pressure 155/102 H 155/102 H Blood Pressure Mean 119 119 Pulse Ox 99 99 92 Oxygen Delivery Method Room Air Room Air Room Air 06/21/24 16:09 06/21/24 17:00 06/21/24 17:07 Temperature 101.7 F H 101.7 F H Temperature Source Oral Oral Pulse Rate 81 77 78 Respiratory Rate 24 H 29 H 25 H Blood Pressure 123/71 H 120/70 120/70 Blood Pressure Mean 88 86 86 Pulse Ox 92 93 93 Oxygen Delivery Method Room Air Room Air Room Air Positive well nourished <Dr. Derian Kohler MD - Last Filed: 06/21/24 17:53> Physical Exam Const Vital Signs: 06/21/24 15:07 06/21/24 15:09 06/21/24 15:20 Temperature 101.2 F H 101.2 F H Temperature Source Oral Oral Pulse Rate 87 87 Respiratory Rate 16 18 Blood Pressure 155/102 H 155/102 H Blood Pressure Mean 119 119 Pulse Ox 99 99 92 Oxygen Delivery Method Room Air Room Air Room Air 06/21/24 16:09 06/21/24 17:00 06/21/24 17:07 Temperature 101.7 F H 101.7 F H Temperature Source Oral Oral Pulse Rate 81 77 78 Respiratory Rate 24 H 29 H 25 H Blood Pressure 123/71 H 120/70 120/70 Blood Pressure Mean 88 86 86 Pulse Ox 92 93 93 Oxygen Delivery Method Room Air Room Air Room Air MDM <MANUEL Rosales - Last Filed: 06/21/24 18:01> MDM Lab Data Labs: Laboratory Results - last 24 hr 06/21/24 06/21/24 15:45 16:44 WBC 11.5 H RBC 5.02 Hgb 15.0 Hct 45.5 MCV 90.6 MCH 29.9 MCHC 33.0 RDW Std Deviation 41.6 RDW Coeff of Chito 12.7 Plt Count 123 L MPV 11.3 Immature Gran % (Auto) 0.600 Neut % (Auto) 90.3 H Lymph % (Auto) 5.8 L [place] % (Auto) 3.0 Eos % (Auto) 0.0 Baso % (Auto) 0.3 Absolute Neuts (auto) 10.4 H Absolute Lymphs (auto) 0.66 L Nucleated RBC % 0 PT 14.4 INR 1.1 APTT 25.3 Sodium 136 Potassium 3.7 Chloride 103 Carbon Dioxide 26.0 Anion Gap 7 BUN 23 H Creatinine 1.12 Estim Creat Clear Calc 75.39 Est GFR (MDRD) Af Amer 84 Est GFR (MDRD) Non-Af 70 BUN/Creatinine Ratio 20.5 H Glucose 115 H Lactic Acid 2.1 H* Calcium 8.9 Total Bilirubin 1.90 H AST 18 ALT 27 Alkaline Phosphatase 99 Total Protein 7.0 Albumin 3.4 Globulin 3.6 Albumin/Globulin Ratio 0.9 Urine Color [place] Urine Clarity Clear Urine pH 6.0 Ur Specific [place] 1.020 Urine Protein 30 H Urine Glucose (UA) Normal Urine Ketones Negative Urine Occult Blood 25 H Urine Nitrite Positive H Urine Bilirubin Negative Urine Urobilinogen 1 H Ur Leukocyte Esterase 500 H Urine RBC 0-5 SEEN Urine WBC 50-100 SEEN Ur Squamous Epith Cells 0-5 SEEN Urine Bacteria 2+ Urine Mucus 1+ Radiography Diagnostic Testing: Clinical Impression(s) from Imaging Studies Chest X-Ray 06/21/24 16:05 IMPRESSION: Normal x-ray examination of the chest. Electronically Signed: Jose Dallas MD at 16:39 EST , Treatment and Re-Evaluation :: Differential diagnosis includes however is not limited to: UTI, pyelonephritis, infected stone, COVID-19, influenza, RSV, community-acquired pneumonia Patient does appear to be uncomfortable, patient does experience rigors on my examination, patient has a fever of 101.9. Patient will receive a full septic workup including 2 sets of blood cultures, urine culture. I was aware from the patient's PCPs office that the patient does have a UA that was positive, this we started IV Rocephin, IV fluids, Tylenol and ibuprofen. Patient will also receive a chest x-ray. All radiologic examinations were read, reviewed by the emergency department attending. From these reads, a plan of care will be put in place. Patient was responding well to IV fluids. Patient's blood pressure heart rate and oxygen remained stable. Chest x-ray showed normal examination. Patient's laboratory values showed a slight leukocytosis with white blood count 11.5, PT/INR within normal limits. Patient's creatinine was baseline at 1.1, BUN of 23, patient's lactic acid was slightly elevated 2.1 however patient did receive IV fluids. Total bilirubin slight elevated 1.9. The remainder was negative. Patient's urinalysis was positive for infection with 2+ bacteria 50-100 red blood cells seen, 500 leukocytes, positive nitrites. Urine culture was sent, as well as 2 sets of blood cultures, IV Rocephin was ordered. On reevaluation, the patient was improved. We did use shared decision making, I did offer the patient mission however they would like to go home. At this time, patient replaced on Bactrim twice a day for 7 days, he will return here for any worsening back pain fever chills nausea or vomiting. Patient is agreeable with the plan, stable for discharge. <Dr. Derian Kohler MD - Last Filed: 06/21/24 17:53> [facility] Narrative Medical decision making narrative: I have personally performed a face to face assessment of the patient and have re viewed the NILE Note. I performed a substantive portion of the visit including all aspects of the following. My leigh findings include: History is subjectively weak and with fevers/chills for maybe a week, dysuria and urgency/hesitancy that started last night. No vomiting, back pain, confusion, chest pain, dyspnea with exertion, unexplained syncope. Has bodyaches. Seen in the office today, urine in the office apparently abnormal sent to ER. Patient states he is weak but not too weak to not get around on his feet. Exam is keenly alert, no distress. Abdomen soft mild suprapubic tenderness othe rwise benign exam. No CVA tenderness. Heart is regular no tachycardia. Medical Decison Making septic workup, treat his fever, reevaluate. 1 view chest x-ray on my interpretation shows no pneumonia. Labs reviewed. He has a mild leukocytosis and a mild lactic acidosis. We treated his fever although it has not come down yet. He has no tachycardia or hypoxemia. He is mentating normally. His urine is abnormally positive which explains his symptoms and is likely the source of his fever and feeling poorly. We discussed admission to the hospital but he declines and prefers to go home and treat as an outpatient. He is pancultured. We discussed reasons to return in the meantime we are treating him with IV Rocephin and outpatient Bactrim. Other additions or changes: [None] Lab Data Labs: Laboratory Results - last 24 hr 06/21/24 06/21/24 15:45 16:44 WBC 11.5 H RBC 5.02 Hgb 15.0 Hct 45.5 MCV 90.6 MCH 29.9 MCHC 33.0 RDW Std Deviation 41.6 RDW Coeff of Chito 12.7 Plt Count 123 L MPV 11.3 Immature Gran % (Auto) 0.600 Neut % (Auto) 90.3 H Lymph % (Auto) 5.8 L [place] % (Auto) 3.0 Eos % (Auto) 0.0 Baso % (Auto) 0.3 Absolute Neuts (auto) 10.4 H Absolute Lymphs (auto) 0.66 L Nucleated RBC % 0 PT 14.4 INR 1.1 APTT 25.3 Sodium 136 Potassium 3.7 Chloride 103 Carbon Dioxide 26.0 Anion Gap 7 BUN 23 H Creatinine 1.12 Estim Creat Clear Calc 75.39 Est GFR (MDRD) Af Amer 84 Est GFR (MDRD) Non-Af 70 BUN/Creatinine Ratio 20.5 H Glucose 115 H Lactic Acid 2.1 H* Calcium 8.9 Total Bilirubin 1.90 H AST 18 ALT 27 Alkaline Phosphatase 99 Total Protein 7.0 Albumin 3.4 Globulin 3.6 Albumin/Globulin Ratio 0.9 Urine Color [place] Urine Clarity Clear Urine pH 6.0 Ur Specific [place] 1.020 Urine Protein 30 H Urine Glucose (UA) Normal Urine Ketones Negative Urine Occult Blood 25 H Urine Nitrite Positive H Urine Bilirubin Negative Urine Urobilinogen 1 H Ur Leukocyte Esterase 500 H Urine RBC 0-5 SEEN Urine WBC 50-100 SEEN Ur Squamous Epith Cells 0-5 SEEN Urine Bacteria 2+ Urine Mucus 1+ Radiography Diagnostic Testing: Clinical Impression(s) from Imaging Studies Chest X-Ray 06/21/24 16:05 IMPRESSION: Normal x-ray examination of the chest. Electronically Signed: Jose Dallas MD at 16:39 EST , Rhythm Strip Rhythm Strip: Sinus Rhythm Rate: 87 Ectopy: None EKG Initial EKG: Attestation: I personally reviewed and interpreted this EKG as follows: Interpretation: Sinus Rhythm and No Acute Injury Pattern Comments: Nml axis & intervals; nml EKG except leftward axis Discharge Plan Triage Chief Complaint: Complaint ED Midlevel Provider: Sigifredo East ED Provider: Derian Kohler Dx/Rx/DC Orders Clinical Impression: Acute UTI, Dehydration Instructions: Urinary Tract Infections in Men, ED Dehydration (Adult), ED Bladder Infection, Male (Adult) Prescriptions: New sulfamethoxazole-trimethoprim [Bactrim DS] 800-160 mg tablet 1 tab PO BID Qty: 14 0RF No Action ropinirole 1 mg tablet 1 mg PO DAILY escitalopram oxalate 20 mg tablet 20 mg PO DAILY famotidine [Pepcid] 20 mg tablet 20 mg PO DAILY Qty: 60 6RF lovastatin 20 MG tablet 20 mg PO DAILY tamsulosin 0.4 MG capsule 0.4 mg PO DAILY Primary Care Provider: Angelita Raphael Referrals: Angelita Raphael PA [Primary Care Provider] - Activity Restrictions/Additional Instructions: You are taking the antibiotics twice a day. You need to remain hydrated. If you develop nausea, vomiting, the fever and chills continue, you are not improving in the next 24 to 48 hours, you need to return. Print Language: German Disposition Disposition: Home, Self Care
[2024-06-21] MEDS: Acetaminophen 500 MG Tablet 1000 MG PO (15:38)
[2024-06-21] MEDS: Ibuprofen 600 MG Tablet PO (15:38)
[2024-06-21] MEDS: 0.9% Normal Saline (1000mL) 1,000 ML 999 ML IV (15:41)
[2024-06-21] MEDS: Ceftriaxone 1 GM/50 ML BAG IV (15:42)
[2024-06-21 16:04] LABS: Absolute Lymphocyte Count 0.66 X10^3/uL (0.83-4.51); Absolute Neutrophil Count 10.4 X10^3/uL (2.0-7.7); Basophil# 0.03 X10^3/uL; Basophil% 0.3 % (0-1); Hematocrit 45.5 % (40-54); Lymphocyte # 0.66 X10^3/ul (0.83-4.51); Lymphocyte % 5.8 % (19-41); Mean Corpuscular Hgb 29.9 pg (27.0-32.0); Mean Corpuscular Volume 90.6 fL (80-94); Mean Platelet Vol. 11.3 fl (6.2-12.0); Monocyte# 0.34 X10^3/uL; NRBC Flagged by Analyzer 0 % (0-5); Neutrophil # 10.37 X10^3/uL (2.7-7.7); Neutrophil % 90.3 % (47-70); Platelet Count 123 K/mm3 (150-450); RBC Distribution Width CV 12.7 % (11.6-14.6); RBC Distribution Width SD 41.6 fl (35.1-43.9); Red Blood Count 5.02 M/mm3 (4.6-6.2); White Blood Count 11.5 K/mm3 (4.4-11.0)
--- NOTE | 2024-06-21 16:05 | RAD_ITS ---
STUDY: X-RAY CHEST REASON FOR EXAM: Male, 68 years old. cough TECHNIQUE: Single frontal view of the chest. COMPARISON: None. FINDINGS: The lungs are clear and expanded. There is no demonstrated pleural abnormality. Normal size heart. Normal mediastinum and george. Normal visualized pulmonary arteries. Normal visualized aortic arch and descending thoracic aorta. Normal visualized thoracic spine. Normal visualized ribs, clavicles, and shoulders. There is no demonstrated abnormality of the visualized soft tissue structures of the upper abdomen. RAD/Chest 1 View (Portable) IMPRESSION: Normal x-ray examination of the chest. Electronically Signed: Jose Dallas MD at 16:39 EST ,
[2024-06-21 16:17] LABS: International Normalized Ratio 1.1; Partial Thromboplast Time 25.3 Seconds (24.1-36.2); Prothrombin Time (Protime)PT. 14.4 SECONDS (11.7-14.9)
[2024-06-21 16:31] LABS: ALB/GLOB Ratio 0.9 RATIO (0.9-2.4); AST(SGOT) 18 U/L (15-37); Alanine Aminotransfer ALT/SGPT 27 U/L (16-61); Albumin, Serum 3.4 g/dL (3.2-5.0); Alkaline Phosphatase 99 U/L (45-117); Anion Gap 7 (5-15); BUN 23 mg/dL (7-18); BUN/Creat Ratio 20.5 RATIO (10-20); Calcium,Total 8.9 mg/dL (8.5-10.1); Chloride 103 mmol/L (98-107); Creatinine, Serum 1.12 mg/dL (0.70-1.30); EST Glomerular Filtration Rate 70 mL/min (>60); Est Glom Filt Rate - Afr Amer 84 mL/min (>60); Estimated Creatinine Clearance 75.39 ml/min; Globulin 3.6 g/dL (2.2-4.2); Glucose 115 mg/dL (74-106); Potassium 3.7 mmol/L (3.5-5.1); Sodium Level 136 mmol/L (136-145)
[2024-06-21 16:40] LABS: Lactic Acid 2.1 mmol/L (0.4-1.9)
[2024-06-21 16:57] LABS: Color, Urine Amber (Yellow); Glucose, Dipstick Normal (Normal); Ketone-Dipstick Negative (Negative); Leukocyte Esterase-Dipstick 500 /ul (Negative); Nitrite-Dipstick Positive (Negative); Occult Blood-Urine 25 /ul (Negative); Protein-Dipstick 30 mg/dl (Negative); Urine Bilirubin Dipstick Negative (Negative); Urine Clarity Clear (Clear); Urine Urobilinogen 1 mg/dl (Normal)
[2024-06-21 17:34] LABS: Bacteria 2+ /hpf (None Seen); Mucous, Urine 1+ /hpf (<or=2+); Red Blood Cells-Urine 0-5 SEEN /hpf (0-5); Squamous Epithelial Cells - UA 0-5 SEEN /hpf (0-5); White Blood Cells 50-100 SEEN /hpf (0-5)
[2024-06-21] MEDS: Smz/Tmp Ds Tablet 1 TABLET PO (18:01)
[2024-06-21 19:56] LABS: Reflex Lactate? Y
== END 2024-06-21 18:05 | disposition home or self-care (01) ==
PROVIDERS: Nurse Practitioner; Emergency Provider Emergency Medicine; PCP Physician Assistant; Visit Provider Emergency Medicine
DX: N39.0 Urinary tract infection, site not specified (principal); I10 Essential (primary) hypertension; E86.0 Dehydration; E78.00 Pure hypercholesterolemia, unspecified; Z79.899 Other long term (current) drug therapy; G25.81 Restless legs syndrome; K21.9 Gastro-esophageal reflux disease without esophagitis; F41.9 Anxiety disorder, unspecified; F32.A Depression, unspecified
CPT/HCPCS: 71045; 80053; 81001; 83605; 85025; 85610; 85730; 87040; 87086; 87088; 87631; 93005; 96365; 99285; A4216

== ENCOUNTER 2024-06-21 22:12 | Inpatient (IN) | payer OTHER, SELFPAY ==
[2024-06-21 22:13] VITALS: BP 111/69; PULSE 95; RESP 34; TEMP 38.6; O2SAT 92; BMI 32.5
[2024-06-21 22:17] VITALS: BP 111/69; PULSE 94; RESP 33; TEMP 38.6; O2SAT 92
--- NOTE | 2024-06-21 22:28 | CT_ITS ---
STUDY: CT ABDOMEN AND PELVIS WITHOUT CONTRAST REASON FOR EXAM: Male, 68 years old. suprapubic pain, uti RADIATION DOSAGE (If Supplied By Facility): CTDIvol = ( 15.65 ) mGy, DLP = ( 817.24 ) mGycm TECHNIQUE: Transaxial images were obtained from the dome of the diaphragm to the symphysis pubis without oral contrast, and without intravenous contrast. Sagittal and coronal images were reconstructed. Individualized dose optimization techniques were used for this CT. The protocol utilizes one or more of the following dose reduction techniques: automated exposure control, adjustment of mA and/or kV according to patient size,and/or use of iterative reconstruction technique. COMPARISON: None. FINDINGS: Multiple pneumatoceles at the lung bases. The visualized portions of the heart are within normal limits. Multiple ill-defined hypodensities throughout the liver are indeterminate. Normal gallbladder and extrahepatic biliary system. Calcific splenic granulomas. Normal pancreas. Normal bilateral adrenal glands. Normal right kidney. Normal left kidney. Small hiatal hernia. Multiple air-fluid levels throughout the small bowel. Multiple air-fluid levels in the colon. The appendix is visualized and appears normal. Normal abdominal aorta. Normal inferior vena cava. Normal retroperitoneum. Normal urinary bladder. Fat-containing inguinal hernias. Normal abdominal wall. . Grade 1 spondylolisthesis of L5-S1. Posterior interbody fusion hardware L4-L5 and S1. Degenerative disc disease. CT/Abdomen/Pelvis without Cont IMPRESSION: Multiple hepatic lesions are indeterminate. Follow-up hepatic MRI recommended. Ileus or nonspecific diarrheal disease. Other incidental findings as above. Electronically Signed: Jose Dallas MD at 23:53 EST ,
--- NOTE | 2024-06-21 22:29 | EDS_ITS ---
HPI History of Present Illness Chief Complaint: General Illness Informant: patient and spouse/S.O. Narrative Narrative: Brought in by EMS. Patient is a 68-year-old male with history of depression, BPH, Cui's esophagus, GERD seen earlier in the ED. Sent from PCP office with fever rigors with dysuria for 3 days. Also reports a cough. Reports suprapubic pain. He was worked up in the ED found to have UTI. He was given IV Rocephin. Discharged with Bactrim. He states he left the ED 6 PM. His fevers are improved. At home sit in the chair developed rigors again. Temp of 102 by EMS. Evaluation of records, urine with infection white count was 11.5, creatinine 1.12. Urine and blood cultures were pending. Lactic acid 2.1. Chest x-ray negative. COVID, influenza, RSV negative. [facility] Medical History Anxiety and depression History of hiatal hernia Barretts esophagus Loss of hearing Wears contact lenses High cholesterol Pulmonary embolism DVT (deep venous thrombosis) Back pain Restless legs Gastric reflux History of edema History of stress test Cardiology follow-up encounter Hyperlipidemia HTN (hypertension) Home Medications ?Medication ?Instructions ?Recorded ?Last Taken ?Type lovastatin 20 mg tablet 20 mg PO QHS 10/18/16 12/11/18 09:00 History tamsulosin 0.4 mg capsule 0.4 mg PO DAILY 12/12/18 12/11/18 09:00 History escitalopram oxalate 20 mg tablet 20 mg PO DAILY 05/26/22 Unknown History ropinirole 1 mg tablet 1 mg PO QHS 05/26/22 Unknown History famotidine 20 mg tablet (Pepcid) 20 mg PO DAILY #60 tabs 07/19/22 Unknown Rx sulfamethoxazole 800 1 tab PO BID #14 tabs 06/21/24 06/21/24 Rx mg-trimethoprim 160 mg tablet (Bactrim DS) Allergy/AdvReac Type Severity Reaction Status Date / Time No Known Allergies Allergy Verified 06/21/24 22:13 Family History Father Bladder cancer Colon cancer Skin cancer Hypertension Prostate cancer Sister Hypertension Acute glaucoma Sister Diabetes Mother Anxiety and depression Mother committed suicide when the patient was 18 years of age. Surgical History History of skin surgery History of ankle surgery Status post laparoscopic Elmer fundoplication History of esophagogastroduodenoscopy (EGD) H/O lumbosacral spine surgery Social History household members: spouse housing: house number of children: 4 current occupational status: employed Smoking Status: Never smoker alcohol intake: never what type of physical activity do you participate in: none seatbelt use: always do you feel safe at home: Yes ROS ROS ED Constitutional Constitutional ED: Reports chills and fever(s); Denies sweats Eyes Eyes: Denies change in vision ENT ENT ED: Denies dysphagia or sore throat Cardiovascular Cardiovascular: Denies chest pain, leg edema, palpitations or racing heartbeat Respiratory/Chest Respiratory/Chest: Denies cough, dyspnea or dyspnea on exertion Gastrointestinal Gastrointestinal: Reports abdominal pain; Denies diarrhea, nausea or vomiting Genitourinary Genitourinary ED: Reports dysuria; Denies hematuria or urinary frequency Musculoskeletal Musculoskeletal: Denies back pain, extremity pain or neck pain Integumentary Denies rash or wounds Neurologic Neurologic: Denies headache(s), paresthesias or weakness EXAM Physical Exam Const Vital Signs: 06/21/24 22:13 06/21/24 22:17 06/21/24 22:17 Temperature 101.4 F H 101.4 F H Temperature Source Oral Oral Pulse Rate 95 94 Respiratory Rate 34 H 33 H Respiratory Effort Normal Respiratory Pattern Normal Blood Pressure 111/69 111/69 Blood Pressure Mean 83 83 Pulse Ox 92 92 Oxygen Delivery Method Room Air Room Air 06/21/24 23:17 06/22/24 00:13 06/22/24 00:21 Temperature 100.1 F H 98.9 F Temperature Source Oral Pulse Rate 88 85 82 Respiratory Rate 30 H 20 H 30 H Respiratory Effort Respiratory Pattern Blood Pressure 108/72 102/70 99/74 Blood Pressure Mean 84 80 82 Pulse Ox 94 93 94 Oxygen Delivery Method Room Air Room Air Positive well nourished and well developed Constitutional Narrative: Nontoxic, warm to palpation. General Appearance ED: well developed and NAD HEENT Reports moist mucous membranes normocephalic and atraumatic Eyes EOMs intact bilaterally and conjunctivae normal General Eye ED: Yes normal appearance of both eyes Neck no lymphadenopathy and supple General: Negative for tenderness Chest Wall Chest: Negative for tenderness Resp normal respiratory effort and normal air movement Effort and Inspection: symmetric chest movement; Negative for respiratory distress Cardio regular rate, regular rhythm and no murmurs Peripheral Pulses: pulses 2+ throughout GI normal to inspection, nondistended, normoactive bowel sounds GI Narrative: Mild suprapubic tenderness. Palpation: Negative for guarding or rebound tenderness present Back/Spine no CVA tenderness and no thoracic nor lumbar tenderness Extremity normal to inspection General Extremety ED: Negative for edema or tenderness General Extremity: Negative for edema Neuro oriented x3 and no sensory deficits noted Sensorium / Orientation: awake and alert Skin no rashes or lesions noted and no wounds Sepsis Attestation Sepsis Alert: Yes Sepsis Attestation: Agree w/Sepsis Date exam was performed: 06/21/24 Time exam was performed: 23:20 Possible Source of Sepsis: Genitourinary Sepsis Organ Dysfunction Criteria Present: Lactic Acid > 2 mmol/L Fluid Resuscitation Fluid resuscitation indicated?: Yes Fluid Resuscitation ordered: 30 ml/kg fluid bolus ordered (Additional 2 L with 1 L from EMS.) Amount of fluid ordered: 3,000 Sepsis Note Date exam was performed: 06/22/24 Time exam was performed: 00:30 Sepsis Attestation: Sepsis re-evaluation was performed (No hypotension at this t chra.) MDM MDM MDM Narrative Medical decision making narrative: Interventions / MDM: Differential diagnosis: UTI, fever, sepsis Diagnosis considered but do not suspect: Obstructive uropathy however CT negative. My EKG interpretation: N/A Imaging independently reviewed and interpreted by myself: CT abdomen pelvis: No obstructive process. Per radiology small bowel fluid levels ileus versus nonspecific diarrhea. Hepatic lesions noted. External documents reviewed: N/A Test considered but not ordered:N/A ED course: Patient febrile respiratory rate 34 however no respiratory distress. He had sepsis labs earlier with cultures pending. He is status post IV Rocephin. Suprapubic pain fever sent for CT. Will recheck CBC and lactic acid. 2320: Initial CBC white count 0.9 platelet of 88, earlier labs had white count level 0.5. This will be resent. Lactic acid returned at 4.1. He status post 1 L of fluids by EMS, will order additional 2 L normal saline for 30 cc/kg. Blood pressure has been stable systolic 108 on reevaluation. Patient meeting septic shock per lactic acid however is not hypotensive. CT scan on my review shows no obstructive process however pending final read at this time. 2352: CBC rechecked white count 5.1 hemoglobin 12.[address] scan per radiology no obstructive process. Ileus versus nonspecific diarrhea disease. He has no nausea or vomiting. Patient reported 1 diarrhea episodes before he came. He did not have that earlier. Hepatic lesions noted. Furthermore discussion patient did have severe rigors at home with shakes. He was alert. This could contribute to his elevated lactic acid on arrival. Will discuss with hospitalist for admission. 0029: I spoke with hospitalist Dr. Armendariz and agrees with sepsis. Will admit to ICU for further management. No additional antibiotics this time he received IV Rocephin earlier. Re-evaluation: stable Disposition discussed with patient/family/significant other: Patient and significant other Case discussed with consulting clinician: Hospitalist This note was generated with [email or web address] dictation software. It may contain incorrect words, spelling, and punctuation that were not noted in checking the note before signing. Lab Data Attestation: I reviewed the patient's lab results. Labs: Laboratory Results - last 24 hr 06/21/24 06/21/24 06/21/24 21:39 21:39 22:30 WBC Cancelled Corrected WBC Cancelled RBC Cancelled Hgb Cancelled Hct Cancelled MCV Cancelled MCH Cancelled MCHC Cancelled RDW Std Deviation Cancelled RDW Coeff of Chito Cancelled Plt Count Cancelled MPV Cancelled Immature Gran % (Auto) Cancelled Neut % (Auto) Cancelled Lymph % (Auto) Cancelled Wagoner % (Auto) Cancelled Eos % (Auto) Cancelled Baso % (Auto) Cancelled Absolute Neuts (auto) Cancelled Absolute Lymphs (auto) Cancelled Total Counted Cancelled Neutrophils % (Manual) Cancelled Band Neutrophils % Cancelled Lymphocytes % (Manual) Cancelled Monocytes % (Manual) Cancelled Eosinophils % (Manual) Cancelled Basophils % (Manual) Cancelled Metamyelocytes % Cancelled Myelocytes % Cancelled Promyelocytes % Cancelled Blast Cells % Cancelled Plasma Cell % (Manual) Cancelled Other Cells % Cancelled Nucleated RBC % Cancelled Nucleated RBCs/100 WBC Cancelled Differential Comment Cancelled Diff Path Review Cancelled Hypersegmented Neuts Cancelled Atypical Lymphocytes Cancelled Reactive Lymphocytes Cancelled Smudge Cells Cancelled Toxic Granulation Cancelled Toxic Vacuolation Cancelled Dohle Bodies Cancelled Doreen Rods Cancelled Platelet Estimate Cancelled Plt Morphology Comment Cancelled RBC Morphology Cancelled Cancelled Polychromasia Cancelled Hypochromasia Cancelled Basophilic Stippling Cancelled Anisocytosis Cancelled Microcytosis Cancelled Macrocytosis Cancelled Spherocytes Cancelled Sickle Cells Cancelled Target Cells Cancelled Tear Drop Cells Cancelled Ovalocytes Cancelled Stomatocytes Cancelled [place] Bodies Cancelled [place] Cells Cancelled Bite Cells Cancelled Crenated Cell Cancelled Acanthocytes (Spur) Cancelled Rouleaux Cancelled Schistocytes Cancelled Lactic Acid 4.1 H* 06/21/24 23:10 WBC 5.1 Corrected WBC RBC 4.09 L Hgb 12.5 L Hct 36.6 L MCV 89.5 MCH 30.6 MCHC 34.2 RDW Std Deviation 42.1 RDW Coeff of Chito 12.8 Plt Count MANAGER PEOPLE MPV 10.9 Immature Gran % (Auto) 0.600 Neut % (Auto) 92.7 H Lymph % (Auto) 5.1 L [place]agoner % (Auto) 1.2 Eos % (Auto) 0.0 Baso % (Auto) 0.4 Absolute Neuts (auto) 4.7 Absolute Lymphs (auto) 0.26 L Total Counted Neutrophils % (Manual) Band Neutrophils % Lymphocytes % (Manual) Monocytes % (Manual) Eosinophils % (Manual) Basophils % (Manual) Metamyelocytes % Myelocytes % Promyelocytes % Blast Cells % Plasma Cell % (Manual) Other Cells % Nucleated RBC % 0 Nucleated RBCs/100 WBC Differential Comment SCANNED Diff Path Review Hypersegmented Neuts Atypical Lymphocytes Reactive Lymphocytes Smudge Cells Toxic Granulation Toxic Vacuolation Dohle Bodies Doreen Rods Platelet Estimate SLT DEC Plt Morphology Comment CLUMPED RBC Morphology Polychromasia 2+ Hypochromasia Basophilic Stippling RARE Anisocytosis 2+ Microcytosis Macrocytosis 1+ Spherocytes Sickle Cells Target Cells Tear Drop Cells RARE Ovalocytes 2+ Stomatocytes [place] Bodies RARE [place] Cells Bite Cells Crenated Cell Acanthocytes (Spur) Rouleaux Schistocytes Lactic Acid Radiography Diagnostic Testing: Clinical Impression(s) from Imaging Studies Abdomen/Pelvis CT 06/21/24 22:28 IMPRESSION: Multiple hepatic lesions are indeterminate. Follow-up hepatic MRI recommended. Ileus or nonspecific diarrheal disease. Other incidental findings as above. Electronically Signed: Jose Dallas MD at 23:53 EST , Critical Care Time Critical Care Time: Yes Critical care time (excluding procedures): 30-74 minutes, Discussing w/Patient &/or Family/Title Closer, Discussing w/Consultants, Arranging Admission or Transfer, Performing Direct Patient Care at Bedside and - (35 minutes) Discharge Plan Dx/Rx/DC Orders Clinical Impression: Sepsis, History of BPH, Complicated urinary tract infection, Fever Disposition Disposition: Acute Care [facility]
[2024-06-21] MEDS: Acetaminophen 500 MG Tablet 1000 MG PO (22:33)
[2024-06-21 23:12] LABS: Lactic Acid 4.1 mmol/L (0.4-1.9)
[2024-06-21 23:17] VITALS: BP 108/72; PULSE 88; RESP 30; TEMP 37.8; O2SAT 94
[2024-06-21 23:17] LABS: Absolute Lymphocyte Count 0.26 X10^3/uL (0.83-4.51); Absolute Neutrophil Count 4.7 X10^3/uL (2.0-7.7); Basophil# 0.02 X10^3/uL; Basophil% 0.4 % (0-1); Hematocrit 36.6 % (40-54); Hemoglobin 12.5 g/dL (13.0-16.5); Lymphocyte # 0.26 X10^3/ul (0.83-4.51); Lymphocyte % 5.1 % (19-41); Mean Corp Hgb Conc 34.2 g/dL (32-36); Mean Corpuscular Hgb 30.6 pg (27.0-32.0); Mean Corpuscular Volume 89.5 fL (80-94); Mean Platelet Vol. 10.9 fl (6.2-12.0); Monocyte# 0.06 X10^3/uL; Monocyte% 1.2 % (0-10); NRBC Flagged by Analyzer 0 % (0-5); Neutrophil # 4.74 X10^3/uL (2.7-7.7); Neutrophil % 92.7 % (47-70); POSITIVE COUNT YES; POSITIVE DIFFERENTIAL YES; RBC Distribution Width CV 12.8 % (11.6-14.6); RBC Distribution Width SD 42.1 fl (35.1-43.9); Red Blood Count 4.09 M/mm3 (4.6-6.2); White Blood Count 5.1 K/mm3 (4.4-11.0)
[2024-06-21] MEDS: 0.9% Normal Saline (1000mL) 1,000 ML 999 ML IV (23:21)
[2024-06-21 23:50] LABS: Differential Indicated SCAN CRITERIA MET
[2024-06-21 23:58] LABS: Differential Comment SCANNED; Platelet Estimate SLT DEC (ADEQ)
[2024-06-21 23:59] LABS: Anisocytosis 2+; Basophilic Stippling RARE; Macrocytosis 1+; Ovalocyte 2+; Platelet Morphology CLUMPED; Polychromasia 2+
[2024-06-22] VITALS (17 sets, daily range): BP systolic 83–131; BP diastolic 58–89; PULSE 67–85; RESP 17–30; TEMP 35.9–37.2; O2SAT 92–96; BMI 31.9; BMI 32.4
[2024-06-22] LABS: Howell-Jolly Body RARE; Tear Drop Cell RARE
[2024-06-22] MEDS: 0.9% Normal Saline (1000mL) 1,000 ML 999 ML IV ×2 (00:19→01:24)
--- NOTE | 2024-06-22 00:22 | HP.PCM.HOS_ITS ---
HPI - General General Date of Admission: 06/22/24 Date of Service: 06/22/24 Chief Complaint: Fevers, dysuria, suprapubic discomfort. HPI Narrative The patient is a 68 y/o M w/ PMHx: CKD stage II based on GFR trending, Hx VTE (DVT, PE), GERD w/ Hx Cui's esophagus, Anxiety and Depression, RLS, HTN, HLD, BPH with obstructive pathology who presents to the [facility] ED on 06/22/2024 with history of evaluation on 06/21/2024 at 1528 with history of 2 weeks of general malaise, fatigue as well as difficulty urinating x 3 days with dysuria as well as fevers and chills with PCP evaluation with noted mild rigors, tachycardia and urinalysis concerning for urinary tract infection with referral at that time to the ED with some discomfort also noted in the suprapubic region with ED workup at that time including CBC with WC 11.5, hemoglobin 15, platelet 123 with left shift and lymphopenia, unremarkable coags, BUN/creatinine 23/1.12 with GFR 70, glucose 115, lactic acid 2.1, total bilirubin 1.90 otherwise hepatic profile not marked appearing, urinalysis with positive gravity 1.020, protein 30, occult blood 25, positive nitrite, leukocyte esterase 500 with urine WBCs 50-100 with 2+ urine bacteria as well as unremarkable chest x-ray with blood culture x 2 sent per ED and IV Rocephin administered with recommended admission however patient declined and therefore had been placed on Bactrim twice daily x 7 days with encouragement to return if he worsens now representing noting that his fevers had improved since recent ED evaluation but he again had development of rigors prompting EMS call with fever resumption noted to be 102 upon EMS arrival prompting return to the ED for evaluation. He also notes recent cough which is why chest x-ray had previously been done and this was negative with also recent COVID/influenza/RSV PCR obtained also noted to be negative. Current presentation with workup noting T101.4, heart rate 95, BP 111/69, respiratory rate 34, 92% on room air with most recent repeat vital signs T1 100.1, heart rate 88, BP 108/72, respiratory rate 30, 94% on room air, CBC with WBC 5.1, he 112.5, MCV 89.5, platelet 84 with less than shift, absolute neutrophils now 4.7, still absolute lymphocytes 0.26, lactic acid 4.1, CT abdomen and pelvis with multiple hepatic lesions that are indeterminate, multiple air-fluid levels throughout the small bowel as well as multiple air- fluid levels in the colon with no acute intra-abdominal findings and normal- appearing kidneys, upon current presentation patient administered 30 cc per per kilogram IV fluids with 2 L normal saline total as well as Tylenol 1000 mg p.o. x 1. PFSH Medical History Anxiety and depression History of hiatal hernia Barretts esophagus Loss of hearing Wears contact lenses High cholesterol Pulmonary embolism DVT (deep venous thrombosis) Back pain Restless legs Gastric reflux History of edema History of stress test Cardiology follow-up encounter Hyperlipidemia HTN (hypertension) Home Medications ?Medication ?Instructions ?Recorded ?Last Taken ?Type lovastatin 20 mg tablet 20 mg PO QHS 10/18/16 12/11/18 09:00 History tamsulosin 0.4 mg capsule 0.4 mg PO DAILY 12/12/18 12/11/18 09:00 History escitalopram oxalate 20 mg tablet 20 mg PO DAILY 05/26/22 Unknown History ropinirole 1 mg tablet 1 mg PO QHS 05/26/22 Unknown History famotidine 20 mg tablet (Pepcid) 20 mg PO DAILY #60 tabs 07/19/22 Unknown Rx sulfamethoxazole 800 1 tab PO BID #14 tabs 06/21/24 06/21/24 Rx mg-trimethoprim 160 mg tablet (Bactrim DS) Allergy/AdvReac Type Severity Reaction Status Date / Time No Known Allergies Allergy Verified 06/21/24 22:13 Family History Father Bladder cancer Colon cancer Skin cancer Hypertension Prostate cancer Sister Hypertension Acute glaucoma Sister Diabetes Mother Anxiety and depression Mother committed suicide when the patient was 18 years of age. Surgical History History of skin surgery History of ankle surgery Status post laparoscopic Elmer fundoplication History of esophagogastroduodenoscopy (EGD) H/O lumbosacral spine surgery Social History household members: spouse housing: house number of children: 4 current occupational status: employed Smoking Status: Never smoker alcohol intake: never what type of physical activity do you participate in: none seatbelt use: always do you feel safe at home: Yes ROS ROS Narrative Admission Review of Systems: CONSTITUTIONAL: No weight loss, + fever, chills, weakness or fatigue. HEENT: Eyes: No visual loss, blurred vision, double vision or yellow sclerae. Ears, Nose, Throat: No hearing loss, sneezing, congestion, runny nose or sore throat. SKIN: No rash or itching, lesions, wounds. CARDIOVASCULAR: No chest pain, chest pressure or chest discomfort, palpitations, edema, orthopnea, syncopal events. RESPIRATORY: + Nonproductive cough. No shortness of breath, wheezing, hemoptysis. GASTROINTESTINAL: + Suprapubic discomfort. No anorexia, nausea, vomiting or diarrhea, abdominal pain, melena, BRBPR. GENITOURINARY: + Dysuria, difficulty with urination, frequency. NEUROLOGICAL: No headache, dizziness, syncope, paralysis, ataxia, numbness or tingling in the extremities, focal weakness, change in bowel or bladder control, seizure. MUSCULOSKELETAL: + muscle, back pain, joint pain or stiffness. HEMATOLOGIC: No anemia, bleeding or bruising. LYMPHATICS: No enlarged nodes. No history of splenectomy. PSYCHIATRIC: No history of depression or anxiety. ENDOCRINOLOGIC: No reports of sweating, cold or heat intolerance. No polyuria or polydipsia. ALLERGIES: No history of asthma, hives, eczema or rhinitis. Vital Signs Vital Signs Vital Signs: 06/21/24 22:13 06/21/24 22:17 06/21/24 22:17 Temperature 101.4 F H 101.4 F H Temperature Source Oral Oral Pulse Rate 95 94 Respiratory Rate 34 H 33 H Respiratory Effort Normal Respiratory Pattern Normal Blood Pressure 111/69 111/69 Blood Pressure Mean 83 83 Pulse Ox 92 92 Oxygen Delivery Method Room Air Room Air 06/21/24 23:17 06/22/24 00:13 06/22/24 00:21 Temperature 100.1 F H 98.9 F Temperature Source Oral Pulse Rate 88 85 82 Respiratory Rate 30 H 20 H 30 H Respiratory Effort Respiratory Pattern Blood Pressure 108/72 102/70 99/74 Blood Pressure Mean 84 80 82 Pulse Ox 94 93 94 Oxygen Delivery Method Room Air Room Air Weight Weight: 220 lb 14.451 oz Body Mass Index (BMI) 32.5 Physical Exam Narrative Physical Examination: General: Awake, alert, oriented x 3 and cooperative, seated upright in the ED bed, fatigued and ill-appearing. Skin: Normal color, normal turgor, no icterus, no cyanosis. HEENT: AT/NC, EOMI, PERRLA, dry MM, no carotid bruits or JVD noted. Lungs: Diminished, greater bases, mild increased respiratory rate but no distress, no rales, ronchi or wheezing. Heart: Currently regular rate and rhythm; no gallop, rub audible. Abdomen: Soft, mild suprapubic discomfort otherwise abdomen NTTP, ND, distant BS, no appreciated HSM. Extremities: No cyanosis, clubbing, or edema. Neurological: Patient awake, alert, oriented as noted, cognitive function intact; pupils equally reactive to light and accommodation, cranial nerves grossly normal, moving all 4 extremities, no focal deficits, strength moderately to severely globally decreased secondary to acute presentation. Psychiatric: Affect appears flat, fatigued, ill-appearing, no acute evidence of depressive or anxiety feelings but does have underlying history. Results Lab / Micro Data 06/21/24 23:10 06/22/24 00:34 Labs: Laboratory Results - last 24 hr 06/21/24 21:39: WBC Cancelled, Corrected WBC Cancelled, RBC Cancelled, Hgb Cancelled, Hct Cancelled, MCV Cancelled, MCH Cancelled, MCHC Cancelled, RDW Std Deviation Cancelled, RDW Coeff of [place]ito Cancelled, Plt Count Cancelled, MPV Cancelled, Immature Gran % (Auto) Cancelled, Neut % (Auto) Cancelled, Lymph % (Auto) Cancelled, Bell % (Auto) Cancelled, Eos % (Auto) Cancelled, Baso % (Auto) Cancelled, Absolute Neuts (auto) Cancelled, Absolute Lymphs (auto) Cancelled, Total Counted Cancelled, Neutrophils % (Manual) Cancelled, Band Neutrophils % Cancelled, Lymphocytes % (Manual) Cancelled, Monocytes % (Manual) Cancelled, Eosinophils % (Manual) Cancelled, Basophils % (Manual) Cancelled, Metamyelocytes % Cancelled, Myelocytes % Cancelled, Promyelocytes % Cancelled, Blast Cells % Cancelled, Plasma Cell % (Manual) Cancelled, Other Cells % Cancelled, Nucleated RBC % Cancelled, Nucleated RBCs/100 WBC Cancelled, Differential Comment Cancelled, Diff Path Review Cancelled, Hypersegmented Neuts Cancelled, Atypical Lymphocytes Cancelled, Reactive Lymphocytes Cancelled, Smudge Cells Cancelled, Toxic Granulation Cancelled, Toxic Vacuolation Cancelled, Dohle Bodies Cancelled, Doreen Rods Cancelled, Platelet Estimate Cancelled, Plt Morphology Comment Cancelled, RBC Morphology Cancelled 06/21/24 21:39: RBC Morphology Cancelled, Polychromasia Cancelled, Hypochromasia Cancelled, Basophilic Stippling Cancelled, Anisocytosis Cancelled, Microcytosis Cancelled, Macrocytosis Cancelled, Spherocytes Cancelled, Sickle Cells Cancelled, Target Cells Cancelled, Tear Drop Cells Cancelled, Ovalocytes Cancelled, Stomatocytes Cancelled, [place] Bodies Cancelled, [place] Cells Cancelled, Bite Cells Cancelled, Crenated Cell Cancelled, Acanthocytes (Spur) Cancelled, Rouleaux Cancelled, Schistocytes Cancelled 06/21/24 22:30: Lactic Acid 4.1 H* 06/21/24 23:10: WBC 5.1, RBC 4.09 L, Hgb 12.5 L, Hct 36.6 L, MCV 89.5, MCH 30.6, MCHC 34.2, RDW Std Deviation 42.1, RDW Coeff of [place]ito 12.8, Plt Count UNEMPLOYMENT SPECIALIST, MPV 10.9, Immature Gran % (Auto) 0.600, Neut % (Auto) 92.7 H, Lymph % (Auto) 5.1 L, Bell % (Auto) 1.2, Eos % (Auto) 0.0, Baso % (Auto) 0.4, Absolute Neuts (auto) 4.7, Absolute Lymphs (auto) 0.26 L, Nucleated RBC % 0, Differential Comment SCANNED, Platelet Estimate SLT DEC, Plt Morphology Comment CLUMPED, Polychromasia 2+, Basophilic Stippling RARE, Anisocytosis 2+, Macrocytosis 1+, Tear Drop Cells RARE, Ovalocytes 2+, [place] Bodies RARE Imaging Radiology Impression Abdomen/Pelvis CT 06/21/24 22:28 IMPRESSION: Multiple hepatic lesions are indeterminate. Follow-up hepatic MRI recommended. Ileus or nonspecific diarrheal disease. Other incidental findings as above. Electronically Signed: Jose Dallas MD at 23:53 EST Reading Location ID and State: [facility] / [place] Tel , Service support , Assessment & Plan Assessment/Plan (1) Sepsis: (2) Complicated urinary tract infection: PLAN: Plan The patient is a 68 y/o M w/ PMHx: CKD stage II based on GFR trending, Hx VTE (DVT, PE), GERD w/ Hx Cui's esophagus, Anxiety and Depression, RLS, HTN, HLD, BPH with obstructive pathology who presents to the [facility] ED on 06/22/2024 with history of evaluation on 06/21/2024 at 1528 with history of 2 weeks of general malaise, fatigue as well as difficulty urinating x 3 days with dysuria as well as fevers and chills with PCP evaluation with noted mild rigors, tachycardia and urinalysis concerning for urinary tract infection with referral at that time to the ED however eventually decided to return home discharged on oral abx therapy but now re-presenting secondary to recurrent fevers. #1. Acute Sepsis secondary to Acute Complicated Urinary Tract Infection with associated fever, tachypnea, worsening thrombocytopenia, lactic acidosis with initial lactic acid during prior ED evaluation 2.1 now increased to 4.1: Will admit to ICU given sepsis concerns as noted, will consult department traffic freight router per protocol, will request repeat CMP as renal function may also be worsening and patient did have mild hyperbilirubinemia of 1.9 and this may also be increasing but uncertain as not obtained, UA upon ED evaluation remarkable, pending UCx, continue and complete IVFs per 30 cc/kg IVF protocol, monitor I/Os, continue IV Rocephin w/ transition as able pending sensitivities and speciation. Bld cx x 2 obtained in the ED. #2. Normocytic anemia, new and chronicity: Current presentation CBC with hemoglobin 12.5, MCV 89.5, previous to this hemoglobin has been 15 which had been patient normal range, will repeat CBC in the a.m. to further elucidate. #3. Thrombocytopenia, new, acute: Possibly reactive given acute presentation as noted, repeat CBC upon current presentation with platelet 84 and prior to this 06/21/2024 platelet of been 123 but remotely had been normal range, we will continue to trend CBC and very cautiously use chemoprophylaxis is noted. #4. Incidentally noted multiple hepatic lesions of undetermined significance: CT abdomen pelvis with multiple hepatic lesions that are indeterminant throughout the liver, once clinically stabilized 1 to consider hepatic MRI to further evaluate. As noted above will plan repeat CMP as patient did have mild hyperbilirubinemia but LFTs were normal of note. #5. Chronic Kidney Disease Stage II based on GFR trending: Earlier during prior ED evaluation BUN/creatinine 23/1.12, GFR 70, baseline renal function primarily 0.8-1.1, repeat BMP in AM. #6. Anxiety and depression: We will continue patient home escitalopram regimen. #7. Hypertension: Noted chart reported history, not on regimen, BP low normal currently, continue to monitor. #8. Hyperlipidemia: Will continue patient on statin therapy. #9. Restless leg syndrome: We will continue patient on Requip regimen. #10. BPH with currently concern for obstructive pathology: We will continue patient on Flomax however low threshold to transition to twice daily regimen if necessary. #11. GERD with history of Cui's esophagus: We will continue patient on famotidine regimen. #12. History of VTE: Patient with previous history DVT, PE, not currently chronically anticoagulated, will maintain on chemoprophylaxis cautiously as noted given thrombocytopenia. #13. DVT prophylaxis: Heparin, low threshold to hold given thrombocytopenia with acute infection is noted. #14. CODE status: Patient HODAOA is his and living will is currently in place. Discussed CODE status at length including difference between FULL code, DNR-CCA and DNR-CC status. Following discussions about the differences in these status, requested Full Code status. Advanced Care Planning Face to Face Time: 16 minutes. Charges/Coding Visit Charges Inpatient E&M: 89617 Init Hosp L3 Procedures Hospitalists Procedures: 44645 Advncd Care Plan 30 Min
[2024-06-22 01:09] LABS: AST(SGOT) 71 U/L (15-37); Alanine Aminotransfer ALT/SGPT 55 U/L (16-61); Albumin, Serum 2.5 g/dL (3.2-5.0); Alkaline Phosphatase 110 U/L (45-117); Anion Gap 5 (5-15); BUN 23 mg/dL (7-18); BUN/Creat Ratio 19.7 RATIO (10-20); Calcium,Total 7.1 mg/dL (8.5-10.1); Chloride 114 mmol/L (98-107); Creatinine, Serum 1.17 mg/dL (0.70-1.30); EST Glomerular Filtration Rate 66 mL/min (>60); Est Glom Filt Rate - Afr Amer 80 mL/min (>60); Estimated Creatinine Clearance 72.47 ml/min; Globulin 2.5 g/dL (2.2-4.2); Glucose 133 mg/dL (74-106); Potassium 2.5 mmol/L (3.5-5.1); Sodium Level 143 mmol/L (136-145)
[2024-06-22] MEDS: 0.9% Normal Saline (1000mL) 1,000 ML 100 ML IV (01:30)
[2024-06-22] MEDS: Potassium Chloride 10mEq/100mL 10 MEQ/100 ML IV.SOLN. 100 MEQ IV BOLUS ×4 (02:03→05:47)
[2024-06-22 02:19] LABS: Magnesium 1.7 mg/dL (1.6-2.6); Phosphorus 0.6 mg/dL (2.5-4.9)
[2024-06-22 02:40] LABS: Reflex Lactate? Y
[2024-06-22] MEDS: Sodium Phosphate/Na Biphos 40 MMOL in 0.9% Normal Saline (500mL Bag) 500 ML 62.5 MMOL IV (03:02)
[2024-06-22] MEDS: Famotidine 20 MG Tablet PO (08:11)
[2024-06-22] MEDS: Heparin Injection (Vial) 5,000 UNIT/ML VIAL 5000 UNIT SC ×2 (08:11→21:09)
[2024-06-22] MEDS: Tamsulosin HCl 0.4 MG Capsule PO (08:11)
[2024-06-22] MEDS: Escitalopram Oxalate 20 MG Tablet PO (08:11)
[2024-06-22 08:29] LABS: Absolute Lymphocyte Count 0.92 X10^3/uL (0.83-4.51); Basophil# 0.04 X10^3/uL; Basophil% 0.3 % (0-1); Eosinophil# 0.02 X10^3/uL; Eosinophils% 0.2 % (0-5); Hematocrit 36.1 % (40-54); Lymphocyte # 0.92 X10^3/ul (0.83-4.51); Mean Corp Hgb Conc 33.2 g/dL (32-36); Mean Corpuscular Hgb 30.5 pg (27.0-32.0); Mean Corpuscular Volume 91.9 fL (80-94); Mean Platelet Vol. 11.8 fl (6.2-12.0); Monocyte# 0.93 X10^3/uL; Monocyte% 7.1 % (0-10); NRBC Flagged by Analyzer 0 % (0-5); Neutrophil % 83.9 % (47-70); POSITIVE COUNT YES; RBC Distribution Width CV 13.2 % (11.6-14.6); RBC Distribution Width SD 44.5 fl (35.1-43.9); Red Blood Count 3.93 M/mm3 (4.6-6.2); White Blood Count 13.1 K/mm3 (4.4-11.0)
[2024-06-22 08:47] LABS: ALB/GLOB Ratio 0.9 RATIO (0.9-2.4); AST(SGOT) 45 U/L (15-37); Alanine Aminotransfer ALT/SGPT 52 U/L (16-61); Albumin, Serum 2.5 g/dL (3.2-5.0); Alkaline Phosphatase 99 U/L (45-117); Anion Gap 4 (5-15); BUN 20 mg/dL (7-18); BUN/Creat Ratio 22.1 RATIO (10-20); Calcium,Total 7.4 mg/dL (8.5-10.1); Chloride 116 mmol/L (98-107); EST Glomerular Filtration Rate 89 mL/min (>60); Est Glom Filt Rate - Afr Amer 108 mL/min (>60); Estimated Creatinine Clearance 93.94 ml/min; Globulin 2.8 g/dL (2.2-4.2); Glucose 104 mg/dL (74-106); Protein, Total 5.3 g/dL (6.4-8.2); Sodium Level 143 mmol/L (136-145)
[2024-06-22 09:03] LABS: Differential Indicated SCAN CRITERIA MET; Platelet Estimate ADEQUATE (ADEQ)
[2024-06-22] MEDS: Ceftriaxone 1 GM/50 ML BAG IV (10:02)
--- NOTE | 2024-06-22 10:24 | PCM.PROGNOTE ---
Subjective Subjective Patient seen and examined. He had no complaints and felt well. He had an uneventful night. Review systems otherwise negative. He has remained hemodynamically stable. Objective Data Objective Data Vital Signs: Vital Signs Temp Pulse Resp BP Pulse Ox O2 Del Method 98.9 F 68 23 H 127/89 H 96 Room Air 06/22/24 08:00 06/22/24 10:00 06/22/24 10:00 06/22/24 10:00 06/22/24 10:00 06/22/24 10:00 Oxygen Delivery Method Room Air Weight: 219 lb 9.286 oz Body Mass Index (BMI) 32.4 Intake & Output: Intake and Output for Last 24 Hours 06/20/24 06/21/24 06/22/24 23:59 23:59 23:59 Intake Total 500 / 500 3365.7 / 3365.7 Output Total 575 / 575 Balance 500 / 500 2790.7 / 2790.7 Lab / Micro Data 06/22/24 08:07 06/22/24 08:07 Labs: Laboratory Results - last 24 hr 06/21/24 21:39: WBC Cancelled, Corrected WBC Cancelled, RBC Cancelled, Hgb Cancelled, Hct Cancelled, MCV Cancelled, MCH Cancelled, MCHC Cancelled, RDW Std Deviation Cancelled, RDW Coeff of Chito Cancelled, Plt Count Cancelled, MPV Cancelled, Immature Gran % (Auto) Cancelled, Neut % (Auto) Cancelled, Lymph % (Auto) Cancelled, [place] % (Auto) Cancelled, Eos % (Auto) Cancelled, Baso % (Auto) Cancelled, Absolute Neuts (auto) Cancelled, Absolute Lymphs (auto) Cancelled, Total Counted Cancelled, Neutrophils % (Manual) Cancelled, Band Neutrophils % Cancelled, Lymphocytes % (Manual) Cancelled, Monocytes % (Manual) Cancelled, Eosinophils % (Manual) Cancelled, Basophils % (Manual) Cancelled, Metamyelocytes % Cancelled, Myelocytes % Cancelled, Promyelocytes % Cancelled, Blast Cells % Cancelled, Plasma Cell % (Manual) Cancelled, Other Cells % Cancelled, Nucleated RBC % Cancelled, Nucleated RBCs/100 WBC Cancelled, Differential Comment Cancelled, Diff Path Review Cancelled, Hypersegmented Neuts Cancelled, Atypical Lymphocytes Cancelled, Reactive Lymphocytes Cancelled, Smudge Cells Cancelled, Toxic Granulation Cancelled, Toxic Vacuolation Cancelled, Dohle Bodies Cancelled, Doreen Rods Cancelled, Platelet Estimate Cancelled, Plt Morphology Comment Cancelled, RBC Morphology Cancelled 06/21/24 21:39: RBC Morphology Cancelled, Polychromasia Cancelled, Hypochromasia Cancelled, Basophilic Stippling Cancelled, Anisocytosis Cancelled, Microcytosis Cancelled, Macrocytosis Cancelled, Spherocytes Cancelled, Sickle Cells Cancelled, Target Cells Cancelled, Tear Drop Cells Cancelled, Ovalocytes Cancelled, Stomatocytes Cancelled, Omer-[place] Bodies Cancelled, [place] Cells Cancelled, Bite Cells Cancelled, Crenated Cell Cancelled, Acanthocytes (Spur) Cancelled, Rouleaux Cancelled, Schistocytes Cancelled 06/21/24 22:30: Lactic Acid 4.1 H* 06/21/24 23:10: WBC 5.1, RBC 4.09 L, Hgb 12.5 L, Hct 36.6 L, MCV 89.5, MCH 30.6, MCHC 34.2, RDW Std Deviation 42.1, RDW Coeff of Chito 12.8, Plt Count BILINGUAL RECEPTIONIST, MPV 10.9, Immature Gran % (Auto) 0.600, Neut % (Auto) 92.7 H, Lymph % (Auto) 5.1 L, [place] % (Auto) 1.2, Eos % (Auto) 0.0, Baso % (Auto) 0.4, Absolute Neuts (auto) 4.7, Absolute Lymphs (auto) 0.26 L, Nucleated RBC % 0, Differential Comment SCANNED, Platelet Estimate SLT DEC, Plt Morphology Comment CLUMPED, Polychromasia 2+, Basophilic Stippling RARE, Anisocytosis 2+, Macrocytosis 1+, Tear Drop Cells RARE, Ovalocytes 2+, Omer-[place] Bodies RARE 06/22/24 00:34: Sodium 143, Potassium 2.5 L*, Chloride 114 H, Carbon Dioxide 23.0, Anion Gap 5, BUN 23 H, Creatinine 1.17, Estim Creat Clear Calc 72.47, Est GFR (MDRD) Af Amer 80, Est GFR (MDRD) Non-Af 66, BUN/Creatinine Ratio 19.7, Glucose 133 H, Calcium 7.1 L, Phosphorus 0.6 L*, Magnesium 1.7, Total Bilirubin 1.10 H, AST 71 H, ALT 55, Alkaline Phosphatase 110, Total Protein 5.0 L, Albumin 2.5 L, Globulin 2.5, Albumin/Globulin Ratio 1.0 06/22/24 03:00: Lactic Acid 2.0 06/22/24 08:07: WBC 13.1 H, RBC 3.93 L, Hgb 12.0 L, Hct 36.1 L, MCV 91.9, MCH 30.5, MCHC 33.2, RDW Std Deviation 44.5 H, RDW Coeff of Chito 13.2, Plt Count , MPV 11.8, Immature Gran % (Auto) 1.500 H, Neut % (Auto) 83.9 H, Lymph % (Auto) 7.0 L, [place] % (Auto) 7.1, Eos % (Auto) 0.2, Baso % (Auto) 0.3, Absolute Neuts (auto) 11.0 H, Absolute Lymphs (auto) 0.92, Nucleated RBC % 0, Platelet Estimate ADEQUATE, Sodium 143, Potassium 4.0, Chloride 116 H, Carbon Dioxide 22.0, Anion Gap 4 L, BUN 20 H, Creatinine 0.90, Estim Creat Clear Calc 93.94, Est GFR (MDRD) Af Amer 108, Est GFR (MDRD) Non-Af 89, BUN/Creatinine Ratio 22.1 H, Glucose 104, Calcium 7.4 L, Total Bilirubin 0.70, AST 45 H, ALT 52, Alkaline Phosphatase 99, Total Protein 5.3 L, Albumin 2.5 L, Globulin 2.8, Albumin/Globulin Ratio 0.9 Micro: Microbiology 06/22/24 01:19 Nasal Secretion MRSA (PCR) - Final Radiography Diagnostic Testing: Radiology Impression Abdomen/Pelvis CT 06/21/24 22:28 IMPRESSION: Multiple hepatic lesions are indeterminate. Follow-up hepatic MRI recommended. Ileus or nonspecific diarrheal disease. Other incidental findings as above. Electronically Signed: Jose Dallas MD at 23:53 EST Reading Location ID and State: [address] [place] [address] Tel , Service support , Physical Exam Const alert, oriented x3, no apparent distress and well nourished General Appearance: cooperative and well developed HEENT normocephalic, head/scalp atraumatic and moist oral mucous membranes Eyes PERRL and EOMs intact bilaterally Neck no lymphadenopathy and supple Lymph Lymphatic: no lymphadenopathy noted Resp normal respiratory effort, normal air movement and clear to auscultation bilaterally Cardio regular rate, regular rhythm, S1 normal heart sound, S2 normal heart sound and no murmurs GI normal to inspection, nondistended, normoactive bowel sounds, soft to palpation, non-tender and non-distended Extremity normal capillary refill, no clubbing, cyanosis or edema and no calf tenderness General Extremity: no tenderness to palpation of joints or extremities Skin General Skin Exam: no breakdown Neuro CN's II-XII intact bilaterally, no focal motor deficits and no sensory deficits noted Motor Exam: strength 5/5 throughout and general weakness Psych thought process normal and cooperative Appearance: appropriate Assessment & Plan Assessment/Plan (1) Complicated urinary tract infection: PLAN: Plan #Sepsis due to UTI Patient feels much better today. His dysuria is improving. Lactic acidosis is resolved. On IV Rocephin. Blood and urine cultures pending. #Hypokalemia: Potassium was 2.5 on admission but is now up to 4. #Thrombocytopenia: Platelets were 123 on admission Repeat CBC today showed platelet clumping so ncould not give an accurate platelet read will trend platelets. #Hepatic lesions This was incidentally noted on the CT of the abdomen and pelvis which showed multiple ill defined hypodensities throughout the liver which are indeterminate. Will get MRI of the abdomen to further evaluate these lesions. Had only mildly elevated total bilirubin but liver enzymes otherwise within normal limits. 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 DVT prophylaxis: SCDs. No anticoagulation due to thrombocytopenia. Disposition: Transfer out of ICU to [facility]. Charges/Coding Visit Charges Inpatient E&M: 18789 Subs Hosp L2
--- NOTE | 2024-06-22 10:40 | MRI_ITS ---
Examination: MRI of the abdomen without and with intravenous contrast administration. INDICATION: Liver lesions. TECHNIQUE: Multisequence multiplanar MRI of the abdomen was obtained pre and post intravenous administration of 20 mL of clariscan. COMPARISON: CT dated June 21, 2024 FINDINGS: The lung bases are clear. Throughout the liver, there are scattered T1 hypointense, T2 hyperintense nonenhancing foci consistent with cysts measuring up to 1.3 cm within the right hepatic lobe the gallbladder is within normal limits. Spleen is grossly unremarkable. The pancreas is within normal limits. The adrenal glands are within normal limits. The kidneys are within normal limits. Visualized abdominal aorta and inferior vena cava are within normal limits. No pathologically enlarged lymph nodes are visualized. The stomach is within normal limits. The visualized small bowel bowel and colon are grossly unremarkable. There are postsurgical changes of the lower lumbar spine. There are degenerative changes of the visualized thoracic and lumbar spine. MRI/MRI Abd WITH and W/O Contrast IMPRESSION: Multiple hepatic cysts. Electronically Signed: Aicha Dean MD at 13:51 EST ,
[2024-06-22] MEDS: Acetaminophen 325 MG Tablet 650 MG PO ×2 (13:09→20:27)
--- NOTE | 2024-06-22 15:43 | CASEMGMT ---
CHANG PÉREZ Assessment Face to Face with patient for initial transition planning/care coordination assessment. CHANG PÉREZ introduced self and role at [facility], pt voices understanding. Pt is A&Ox4 and is resting comfortably in bed and is calm. Pt at bedside. Care providers, pharmacy, and demographics verified. Admitting dx: Sepsis PCP: Angelita Raphael Specialists: Denies Preferred Pharmacy: [facility] Insurance: MMO Prescription Benefit: Yes LNOK: Mallory Dorsey (W) , Shalini Bradley (Sister) Living Arrangements: Pt lives with his in a 2 story home with one step to enter ADLs/IADLs: Ind Transportation: Self, DME: FWW. HHC/SNF: Denies history or needs Pt?s goal: Home Plan: Home no needs. Pt was cleared by PT. Pt states that he feels safe returning home with his once he is medically ready and denies the need for HH, OP Tx, or CCN. Pt denies further concerns at this time. Kwabena Matias RN, CM
[2024-06-22] MEDS: Atorvastatin Calcium 10 MG Tablet 5 MG PO (21:11)
[2024-06-22] MEDS: Pramipexole Di-HCl 0.5 MG Tablet PO (21:11)
[2024-06-22] MEDS: 0.9% Saline Lock 10 ML Syringe IV (21:14)
[2024-06-23 04:14] VITALS: BP 127/75; PULSE 70; RESP 20; TEMP 37.3; O2SAT 94
[2024-06-23 06:00] VITALS: BMI 32.5
[2024-06-23 08:11] LABS: Absolute Lymphocyte Count 0.84 X10^3/uL (0.83-4.51); Absolute Neutrophil Count 9.1 X10^3/uL (2.0-7.7); Basophil# 0.05 X10^3/uL; Basophil% 0.5 % (0-1); Eosinophil# 0.13 X10^3/uL; Eosinophils% 1.2 % (0-5); Hematocrit 36.8 % (40-54); Hemoglobin 12.2 g/dL (13.0-16.5); Lymphocyte # 0.84 X10^3/ul (0.83-4.51); Lymphocyte % 7.6 % (19-41); Mean Corp Hgb Conc 33.2 g/dL (32-36); Mean Corpuscular Volume 90.6 fL (80-94); Mean Platelet Vol. 11.7 fl (6.2-12.0); Monocyte# 0.84 X10^3/uL; Monocyte% 7.6 % (0-10); NRBC Flagged by Analyzer 0 % (0-5); Neutrophil # 9.05 X10^3/uL (2.7-7.7); POSITIVE COUNT YES; Platelet Count 89 K/mm3 (150-450); RBC Distribution Width CV 13.1 % (11.6-14.6); RBC Distribution Width SD 43.5 fl (35.1-43.9); Red Blood Count 4.06 M/mm3 (4.6-6.2)
[2024-06-23 08:29] LABS: Anion Gap 5 (5-15); BUN 14 mg/dL (7-18); Chloride 110 mmol/L (98-107); Creatinine, Serum 0.78 mg/dL (0.70-1.30); EST Glomerular Filtration Rate 106 mL/min (>60); Est Glom Filt Rate - Afr Amer 128 mL/min (>60); Estimated Creatinine Clearance 105.68 ml/min; Glucose 106 mg/dL (74-106); Potassium 3.5 mmol/L (3.5-5.1); Sodium Level 139 mmol/L (136-145)
[2024-06-23 08:50] VITALS: BP 139/70; PULSE 73; RESP 18; TEMP 36.8; O2SAT 99
[2024-06-23] MEDS: Escitalopram Oxalate 20 MG Tablet PO (08:55)
[2024-06-23] MEDS: Heparin Injection (Vial) 5,000 UNIT/ML VIAL 5000 UNIT SC (08:56)
[2024-06-23] MEDS: Tamsulosin HCl 0.4 MG Capsule PO (08:56)
[2024-06-23] MEDS: Famotidine 20 MG Tablet PO (08:56)
[2024-06-23] MEDS: Ensure Plus High Protein 120 ML LIQUID PO (08:59)
[2024-06-23 09:11] LABS: Differential Indicated SCAN CRITERIA MET; Platelet Estimate SLT DEC (ADEQ)
[2024-06-23] MEDS: Ceftriaxone 1 GM/50 ML BAG IV (11:32)
[2024-06-23] MEDS: 0.9% Saline Lock 10 ML Syringe IV (11:33)
--- NOTE | 2024-06-23 11:47 | DCINST_ITS ---
Discharge Instructions Diet Discharge Diet: Low fat / Low cholesterol DC O2, CPAP, BIPAP needs Additional Home O2 Discharge instructions: No Dressing / Incision Discharge Activity: Return to Normal Activity Weight Bearing Status: Weight bearing as tolerated Dressing / Incision Call your doctor if you observe: Fever of 101 or Higher, Shortness of breath, Dizziness, Swelling in the ankles and Chest pain Follow Up Care Test Results: Test results from this visit will be discussed in further detail at your follow- up appointment, if applicable. Discharge Plan Admission Admit Date/Time: 06/22/24 00:24 Primary Reason for Your Visit: UTI Attending Provider: Mariia Garcia Primary Care Provider: Angelita Raphael Consulting Providers: Lakeisha Armendariz; Rk Veloz; Roberto Bishop; Pardeep Corey; Nelson Kumari; Jose Serrato; Glenn Marte; Chema Chaidez; Vera Palencia; Brandon Michel; Flo Houser; Mk Williamson; Chelsea Edwards; Reid Hughes; Bill Elizalde; Thiago Flowers; Esteban Euceda; Benny Reynoso; Rik Solis; Daniel Estrada; Kvng Mark; Tee Mathew Instructions Patient Instructions: ED UTIs Women Discharge Orders/Prescriptions Prescriptions: New cefdinir 300 mg capsule 300 mg PO BID Qty: 10 0RF Continued ropinirole 1 mg tablet 1 mg PO QHS Rx Instructions: Take 1-3 hours before bedtime escitalopram oxalate 20 mg tablet 20 mg PO DAILY famotidine [Pepcid] 20 mg tablet 20 mg PO DAILY Qty: 60 6RF lovastatin 20 MG tablet 20 mg PO QHS tamsulosin 0.4 MG capsule 0.4 mg PO DAILY Discontinued sulfamethoxazole-trimethoprim [Bactrim DS] 800-160 mg tablet 1 tab PO BID Qty: 14 0RF Referrals / Follow Up: Angelita Raphael PA [Primary Care Provider] - Within 1 Week Disposition Disposition (needs filled in before D/C Order can be placed): Home, Self Care
--- NOTE | 2024-06-23 11:48 | DS.PCM_ITS ---
Providers Date of Admission: 06/22/24 Date of Discharge: 06/23/24 Primary Care Physician: AVELINO Joseph Consultations 06/22/24 01:10 Consult: Machine Stapler / Pulmonary Medicine Routine Consulting Provider: Intensivists/Pulmonary Med Reason for Consult: Sepsis, Complicated UTI EMERGENT Consult: No MD Notified: Yes Date Notified: 06/22/24 Time Notified: 00:27 Method of Notification: Text Reason For Visit: SEPSIS, COMPLICATED UTI Diagnosis Discharge Diagnosis (1) Complicated urinary tract infection: Status: Acute Code(s): N39.0 - Urinary tract infection, site not specified Plan #Sepsis due to UTI * Patient feels much better today. His dysuria is improving. * Lactic acidosis is resolved. On IV Rocephin. * Blood and urine cultures pending. * #Hypokalemia: Potassium was 2.5 on admission but is now up to 4. #Thrombocytopenia: * Platelets were 123 on admission * Repeat CBC today showed platelet clumping so ncould not give an accurate platelet read * will trend platelets. #Hepatic lesions * This was incidentally noted on the CT of the abdomen and pelvis which showed multiple ill defined hypodensities throughout the liver which are indeterminate. Will get MRI of the abdomen to further evaluate these lesions. * Had only mildly elevated total bilirubin but liver enzymes otherwise within normal limits. 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 DVT prophylaxis: SCDs. No anticoagulation due to thrombocytopenia. Disposition: Transfer out of ICU to [facility]. Medications at Discharge Home Medications lovastatin 20 mg tablet 20 mg PO QHS 10/18/16 tamsulosin 0.4 mg capsule 0.4 mg PO DAILY 12/12/18 escitalopram oxalate 20 mg tablet 20 mg PO DAILY 05/26/22 ropinirole 1 mg tablet 1 mg PO QHS 05/26/22 famotidine 20 mg tablet (Pepcid) 20 mg PO DAILY #60 tabs 07/19/22 cefdinir 300 mg capsule 300 mg PO BID #10 caps 06/23/24 Hospital Course Operations None Procedures None Summary of Care Provided Minutes Spent on Discharge: 47 Hospital Course: Patient is a 68-year-old male with a past medical history as outlined was a admitted via the ED on 06/22/2024 with a complaint of fever and rigors with burning with urination for 3 days prior to admission. He also had associated suprapubic pain. His symptoms have been going on for about 2 weeks and gradually worsened. In the ED urinalysis showed 2+ bacteria with elevated WBCs. He had been seen earlier in the ED and sent home on p.o. Bactrim but symptoms did not improve so he came into the ED. CT of the abdomen and pelvis done showed multiple hepatic lesions which are indeterminate with multiple air-fluid levels throughout the small bowel and colon. He was admitted and managed for UTI. He was initially admitted to the ICU on account of sepsis due to UTI. He was started on IV ceftriaxone. He was hydrated with IV fluids and started on IV ceftriaxone. MRI of the abdomen was done on account of the liver lesions and the MRI showed multiple hepatic cysts. Urine cultures grew presumptive E. coli. Blood cultures were negative and showed no growth at the time of discharge per my discussion with the lab before he was discharged. Patient was transferred out of the ICU and felt much better. He was discharged home on 06/23/2024 on p.o. cefdinir 300 mg twice daily for 5 days. He is to follow-up with his primary care doctor for follow-up of the hepatic cyst as dictated by MRI and for further workup as needed per his PCP. Patient seen and examined prior to discharge. He had no active complaints. He felt much better. Review of systems otherwise negative. Labs and vitals reviewed. Home medication reviewed and reconciled. Physical Exam Const alert, oriented x3, no apparent distress and well nourished General Appearance: cooperative, comfortable, well kempt and well developed Exam Limitations: no limitations HEENT normocephalic, head/scalp atraumatic, hearing grossly normal bilaterally and moist oral mucous membranes Mouth: oral and palatal mucosa normal Eyes PERRL, EOMs intact bilaterally and conjunctivae normal Neck no lymphadenopathy and supple Lymph Lymphatic: no lymphadenopathy noted Resp normal respiratory effort, normal air movement and clear to auscultation bilaterally Cardio regular rate, regular rhythm, S1 normal heart sound, S2 normal heart sound and no murmurs GI normal to inspection, nondistended, normoactive bowel sounds, soft to palpation, non-tender and non-distended Extremity normal to inspection, full ROM, normal capillary refill, no clubbing, cyanosis or edema and no calf tenderness General Extremity: no tenderness to palpation of joints or extremities Skin no rashes or lesions noted General Skin Exam: no breakdown Neuro oriented x3, CN's II-XII intact bilaterally, moves all extremities, no focal motor deficits and no sensory deficits noted Sensorium / Orientation: awake and alert Motor Exam: strength 5/5 throughout and general weakness Psych thought process normal and cooperative Appearance: appropriate Weight / BMI Weight Weight: 219 lb 9.286 oz Body Mass Index (BMI) 32.5 ABG / Lab / Microbiology Data 06/23/24 07:58 06/23/24 07:58 Laboratory: Laboratory Results - last 24 hr 06/23/24 07:58: WBC 11.0, RBC 4.06 L, Hgb 12.2 L, Hct 36.8 L, MCV 90.6, MCH 30.0, MCHC 33.2, RDW Std Deviation 43.5, RDW Coeff of [place] 13.1, Plt Count 89 L, MPV 11.7, Immature Gran % (Auto) 1.100 H, Neut % (Auto) 82.0 H, Lymph % (Auto) 7.6 L, [place] % (Auto) 7.6, Eos % (Auto) 1.2, Baso % (Auto) 0.5, Absolute Neuts (auto) 9.1 H, Absolute Lymphs (auto) 0.84, Nucleated RBC % 0, Platelet Estimate SLT DEC, Sodium 139, Potassium 3.5, Chloride 110 H, Carbon Dioxide 24.0, Anion Gap 5, BUN 14, Creatinine 0.78, Estim Creat Clear Calc 105.68, Est GFR (MDRD) Af Amer 128, Est GFR (MDRD) Non-Af 106, BUN/Creatinine Ratio 18.0, Glucose 106, C alcium 8.0 L Microbiology: Microbiology 06/22/24 01:19 Nasal Secretion MRSA (PCR) - Final Radiography Diagnostic Testing: Radiology Impression Abdomen MRI 06/22/24 10:40 IMPRESSION: Multiple hepatic cysts. Electronically Signed: Aicha Dean MD at 13:51 EST , D/C Instructions Discharge Diet: Low fat / Low cholesterol Discharge Activity: Return to Normal Activity Weight Bearing Status: Weight bearing as tolerated Call your doctor if you observe: Fever of 101 or Higher, Shortness of breath, Dizziness, Swelling in the ankles and Chest pain DC O2, CPAP, BIPAP Needs Additional Home O2 Discharge instructions: No DC home with Oxygen: No Meaningful Use Info Meaningful Use Meaningful Use Diagnoses (Choose all that apply): None applicable Ischemic Stroke Statin Dosing Therapy Reference: STATIN DOSE THERAPY REFERENCE: * Patients > 75 years receive moderate or high dose statin therapy. * Patients 75 years or YOUNGER should receive HIGH intensity statin dose unless contraindicated. You will be required to document reason for non-treatment if statin daily dose does not meet guidelines. HIGH DOSE STATIN THERAPY DAILY Atorvastatin > than or = to 40 mg Rosuvastatin > than or = to 20 mg Amlodipine + Atorvastatin > than or = to 2.5/40 mg Ezetimibe + Simvastatin 10/80 mg Simvastatin 80mg Discharge Plan Admission Admit Date/Time: 06/22/24 00:24 Primary Reason for Your Visit: UTI Attending Provider: Mariia Garcia Primary Care Provider: Angelita Raphael Consulting Providers: Lakeisha Armendariz; Rk Veloz; Roberto Bishop; Pardeep Corey; Nelson Kumari; Jose Serrato; Glenn Marte; Chema Chaidez; Vera Palencia; Brandon Michel; Flo Houser; Mk Williamson; Chelsea Edwards; Reid Hughes; Bill Elizalde; Thiago Flowers; Esteban Euceda; Benny Reynoso; Rik Solis; Daniel Estrada; Kvng Mark; Tee Mathew Instructions Patient Instructions: ED UTIs Women Discharge Orders/Prescriptions Prescriptions: New cefdinir 300 mg capsule 300 mg PO BID Qty: 10 0RF Continued ropinirole 1 mg tablet 1 mg PO QHS Rx Instructions: Take 1-3 hours before bedtime escitalopram oxalate 20 mg tablet 20 mg PO DAILY famotidine [Pepcid] 20 mg tablet 20 mg PO DAILY Qty: 60 6RF lovastatin 20 MG tablet 20 mg PO QHS tamsulosin 0.4 MG capsule 0.4 mg PO DAILY Discontinued sulfamethoxazole-trimethoprim [Bactrim DS] 800-160 mg tablet 1 tab PO BID Qty: 14 0RF Referrals / Follow Up: Angelita Raphael PA [Primary Care Provider] - Within 1 Week Disposition Disposition (needs filled in before D/C Order can be placed): Home, Self Care Charges/Coding Visit Charges Inpatient E&M: 72872 Disch Hosp >30min
[2024-06-23 13:28] VITALS: BP 142/90; PULSE 80; RESP 18; TEMP 37; O2SAT 96
[2024-06-24 18:16] LABS: Procalcitonin 4.65 ng/mL (0.00-0.09)
== END 2024-06-23 13:45 | disposition home or self-care (01) | DRG 872 ==
LOC: ED 23:27 → ICU 06-22 00:40 → MS3 06-22 11:39
PROVIDERS: Admitting Provider Family Medicine; Emergency Provider Emergency Medicine; PCP Physician Assistant; Visit Provider Student in an Organized Health Care Education/Training Program
DX: A41.9 Sepsis, unspecified organism (principal); E87.20 Acidosis, unspecified; N39.0 Urinary tract infection, site not specified; N13.8 Other obstructive and reflux uropathy; K76.89 Other specified diseases of liver; D69.6 Thrombocytopenia, unspecified; I12.9 Hypertensive chronic kidney disease with stage 1 through stage 4 chronic kidney disease, or unspecified chronic kidney disease; D64.9 Anemia, unspecified; G25.81 Restless legs syndrome; E78.00 Pure hypercholesterolemia, unspecified; E87.6 Hypokalemia; N18.2 Chronic kidney disease, stage 2 (mild); F41.8 Other specified anxiety disorders; K21.9 Gastro-esophageal reflux disease without esophagitis; B96.20 Unspecified Escherichia coli [E. coli] as the cause of diseases classified elsewhere; Z79.899 Other long term (current) drug therapy; N40.1 Benign prostatic hyperplasia with lower urinary tract symptoms
CPT/HCPCS: 36415; 74176; 74183; 80048; 80053; 83605; 83735; 84100; 84145; 85025; 87641; 94668; 97162; 97166; 99285; A9575; J7030; J7040; A4216

== ENCOUNTER 2024-07-05 06:24 | Day surgery (SDC) | payer OTHER, SELFPAY ==
--- NOTE | 2024-07-02 08:58 | PAT.ANE_ITS ---
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 When Was Last Pacemaker Check QUESTION #4 FULL TEXT: You/Your Family Experience fever (hyperthermia) with Anesthesia Last Oral Intake Last Oral intake: Last Oral Intake NPO since Meds taken in AM with sips of water? Meds patient instructed to take am of surgery PONV PONV - tacking machine operator: PONV - tacking machine operator Female No 07/02/24 08:40 HX of Motion Sickness No 07/02/24 08:40 HX of N/V After Surgery No 07/02/24 08:40 Non-Smoker Yes 07/02/24 08:40 Duration of Surgery greater No 07/02/24 08:40 than 60 minutes Number of Risk Factors 1 07/02/24 08:40 PONV Score Low Risk 07/02/24 08:40 Height & Weight Height & Weight: Anesthesia: Height & Weight Height 5 ft 9 in 05/22/24 13:30 Respiratory Assessment Respiratory Assessment - tacking machine operator: Respiratory Tract Infection Hx - tacking machine operator Hx Respiratory Tract Infection No 07/02/24 08:40 STOP Sleep Apnea STOP Sleep Apnea - tacking machine operator: STOP Sleep Apnea - tacking machine operator Hx Hypertension No 07/02/24 08:40 Hx Sleep Apnea No 07/02/24 08:40 CPAP BIPAP Do you snore loudly (louder No 07/02/24 08:40 than talking or can be heard Do you often feel tired/ Yes 07/02/24 08:40 fatigued/ sleepy during daytime? Has anyone observed you stop No 07/02/24 08:40 breathing during sleep? STOP Results Negative 07/02/24 08:40 QUESTION #5 FULL TEXT : Do you snore loudly (louder than talking or can be heard through closed doors)? 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 Specify any problems Hx of Preganancy in last 3 N/A 07/02/24 08:40 Months Nurse Filling Out Transfusion DSCHRIBER 07/02/24 08:40 & Questions: Date: 07/02/24 07/02/24 08:40 Time: 08:42 07/02/24 08:40 Patient unable to answer at this time (ie. confused, unrespo /Reproduction History /Reproductive History - tacking machine operator: /Reproductive Hx- tacking machine operator Hx Now No 07/02/24 08:40 Gestational Age (in weeks): EDC: Hx Hx Para Hx Section SAB No 07/02/24 08:40 PFSH Medical History (Updated 07/02/24 @ 08:49 by Elisha Chowdhury) Bladder disease Depression Arthritis Prostate disease Migraine headache Non-smoker History of echocardiogram History of BPH History of hiatal hernia Barretts esophagus Loss of hearing Wears contact lenses High cholesterol Pulmonary embolism DVT (deep venous thrombosis) Back pain Restless legs Gastric reflux History of edema History of stress test Cardiology follow-up encounter Hyperlipidemia Home Medications ?Medication ?Instructions ?Recorded ?Last Taken ?Type lovastatin 20 mg tablet 20 mg PO QHS 10/18/16 12/11/18 09:00 History tamsulosin 0.4 mg capsule 0.4 mg PO QHS 12/12/18 12/11/18 09:00 History escitalopram oxalate 20 mg tablet 20 mg PO QHS 05/26/22 Unknown History ropinirole 1 mg tablet 1 mg PO QHS 05/26/22 Unknown History famotidine 20 mg tablet (Pepcid) 20 mg PO DAILY #60 tabs 01/10/23 Unknown Rx cefdinir 300 mg capsule 300 mg PO BID #10 caps 06/23/24 Unknown Rx Allergy/AdvReac Type Severity Reaction Status Date / Time No Known Allergies Allergy Verified 07/02/24 08:37 Family History Father Bladder cancer Colon cancer Skin cancer Hypertension Prostate cancer Sister Hypertension Acute glaucoma Sister Diabetes Mother Anxiety and depression Mother committed suicide when the patient was 18 years of age. Surgical History (Updated 07/02/24 @ 08:49 by Elisha Chowdhury) Hx of colonoscopy History of skin surgery History of ankle surgery Status post laparoscopic Elmer fundoplication History of esophagogastroduodenoscopy (EGD) H/O lumbosacral spine surgery Social History household members: spouse housing: house number of children: 4 current occupational status: employed Smoking Status: Never smoker alcohol intake: never what type of physical activity do you participate in: none seatbelt use: always do you feel safe at home: Yes Audit: Pertinent Findings Pertinent Findings EKG Perinent findings: June 21, 2024. Normal sinus rhythm. Inferior infarct age undetermined. Cannot rule out anterior infarct age undetermined. Echo (EF%) pertinent findings: December 13, 2018. Ejection fraction 60%. Right ventricular systolic pressure is 22 mmHg. No aortic stenosis noted. Recommendation Anesthesia Recommendation Anesthesia recommendation: OPTIMIZED for anesthesia
[2024-07-05] VITALS (8 sets, daily range): BP systolic 100–142; BP diastolic 70–94; PULSE 60–65; RESP 16–18; TEMP 36.1–36.2; O2SAT 93–96; BMI 31.2
--- NOTE | 2024-07-05 | GASB_PTH ---
PATIENT: DESHAWN DODGE LOC: EN U#:[id number] AGE/SX: 68/M ROOM: RE07/05/[address]: Dr. Madhu Pedraza MD : 1955 BED: DIS: 07/05/2024 SPEC #: [id number] RECD: 07/05/24 12:31 STATUS: AMY NGOZI #: [id number] AGUEDA: 07/05/24 00:[address]: Madhu Pedraza DEPT: SURGICAL PATHOLOGY RECD BY: Juan Charles ENTERED: 07/05/24 12:31 SP TYPE: Gastric Bx OTHR DR: AVELINO Joseph Tissues: Gastric mucous membrane Procedures: Special Stain Group I Surgery Specimen Level IV Alcian Blue/PAS (control) HEADER OPERATION: EGD with biopsy PRE-OP DIAGNOSIS: Cui's esophagus TISSUE SUBMITTED: GE junction x2 MICROSCOPIC DIAGNOSIS Gastroesophageal junction biopsy x2: Fragments of gastroesophageal mucosa with focal intestinal metaplasia (goblet cell metaplasia), consistent with Cui's esophagus. Chronic inflammation. Negative for dysplasia. See comment. 07/08/2024 COMMENT Alcian blue/PAS stain with matched control is used in the evaluation of the specimen. Immunohistochemistry ([id number]) for P53 and Ki-67 will be performed and results will be reported separately. MICROSCOPIC DESCRIPTION Slides are reviewed. GROSS DESCRIPTION Received in fixative is one container labeled with the patient's name and designated GE junction biopsy x2. The specimen consists of multiple irregular fragments of light bowman soft tissue that in aggregate measure 0.8 x 0.3 x 0.1 cm. The specimen is totally submitted in one cassette. 07/08/2024 TC:5 CPT:85056,05167
--- NOTE | 2024-07-05 | IMM_PTH ---
PATIENT: DESHAWN DODGE LOC: EN U#:[id number] AGE/SX: 68/M ROOM: RE07/05/[address]: Dr. Madhu Pedraza MD : 1955 BED: DIS: 07/05/2024 SPEC #: [id number] RECD: 07/08/24 11:15 STATUS: AMY REQ #: [id number] AGUEDA: 07/05/24 00:[address]: Madhu ePdraza DEPT: IMMUNOHISTOCHEMISTRY RECD BY: Jey Cooley ENTERED: 07/08/24 11:16 SP TYPE: IMMUNO OTHR DR: AVELINO Joseph Tissues: Gastric mucous membrane Procedures: P53 (initial) KI-67 (add) PHYSICIAN & INSTITUTION [place] [id number] SPECIMEN INFORMATION: Tissue Source: Gastroesophageal junction biopsy x2 Clinical Info: Cui's esophagus Specimen Number: [id number] CPT code: 88272,15218 METHODOLOGY: Deparaffinized sections of prefer/formalin-fixed tissue or PAP/DQ stained slides are incubated with monoclonal/polyclonal antibodies/oligonucleotide probes. Localization is made via biotin free immunoperoxidase method. Appropriate controls are performed and reacted as expected. Results on target cell population are indicated in the following table: RESULTS: ANTIBODY / CLONE RESULT P53 (DO-7) negative (null pattern) Ki-67 (30-9) positive, low These tests were developed and their performance characteristics determined by [facility]. They may not have been cleared or approved by the U.[place]. Food and Drug Administration. The FDA has determined that such clearance or approval is not necessary. The above immunohistochemical/dualISH markers are ordered and reviewed by the Pathologist. INTERPRETATION: Gastroesophageal junction, biopsy: Negative for dysplasia. VINCENZO/ 07/09/2024
--- NOTE | 2024-07-05 07:00 | PRE.ANES_ITS ---
ASA Classification* ASA Classification ASA Classification: 2 Assessment & Plan Anesthesia* Anesthesia Assessment Anesthesia Assessment: Discussed sedation and/or anesthesia options, risks, benefits, and alternatives with patient/parents/legal guardian/POA. Questions invited. The patient/parents/legal guardian/POA seems to understand and agrees to proceed with anesthesia plan. Reviewed the physical assessment, medical history, allergy history and patient home medications list prior to surgery/procedure/anesthetic and documented any changes. Performed airway and anesthesia risk assessments. Anesthesia Type Anesthesia Type: MAC Anesthesia Focused Assessment* Temperature: 96.9 F Pulse Rate: 65 Blood Pressure: 142/94 Respiratory Rate: 18 Pulse Ox: 96 Airway Assessment Mouth opens: >3 cm Mallampati Score: II Focused Labs Anesthesia Preop lab: CBC WBC 11.0 K/mm3 (4.4-11.0) 06/23/24 07:58 RBC 4.06 M/mm3 (4.6-6.2) L 06/23/24 07:58 Hgb 12.2 g/dL (13.0-16.5) L 06/23/24 07:58 Hct 36.8 % (40-54) L 06/23/24 07:58 Plt Count 89 K/mm3 (150-450) L 06/23/24 07:58 CHEMISTRY Potassium 3.5 mmol/L (3.5-5.1) 06/23/24 07:58 Sodium 139 mmol/L (136-145) 06/23/24 07:58 Magnesium 1.7 mg/dL (1.6-2.6) 06/22/24 00:34 Phosphorus 0.6 mg/dL (2.5-4.9) L* 06/22/24 00:34 BUN 14 mg/dL (7-18) 06/23/24 07:58 Creatinine 0.78 mg/dL (0.70-1.30) 06/23/24 07:58 Glucose 106 mg/dL (74-106) 06/23/24 07:58 POC Glucose 89 mg/dL (70-110) 12/12/18 09:35 TSH 0.80 uIU/mL (0.358-3.74) 12/12/18 12:01 COAG PT 14.4 SECONDS (11.7-14.9) 06/21/24 15:45 Pre-Assessment Diagnosis/Proposed Procedure Planned Operative Procedure(s): EGD Anesthesia History Anesthesia History - recovery collector: Anesthesia History - recovery collector Hx Hospitalization Yes: 06/21-06/2307/02/24 08:40 HOSPITALIZED FOR UTI Any Problems With Anesthesia No 07/02/24 08:40 Cholinesterase deficiency No 07/02/24 08:40 You/Your Family Experience No 07/02/24 08:40 fever (hyperthermia) with Relationship Recent Exposure to Contagious No 07/05/24 06:41 Disease Does patient have nerve No 07/02/24 08:40 stimulator Patient instructed to have device shut off --Does patient have Pacemaker No 07/05/24 06:41 or ICD? When Was Last Pacemaker Check QUESTION #4 FULL TEXT: You/Your Family Experience fever (hyperthermia) with Anesthesia Last Oral Intake Last Oral intake: Last Oral Intake NPO since 00:00 07/05/24 06:41 Meds taken in AM with sips of Yes 07/05/24 06:41 water? Meds patient instructed to take am of surgery PONV PONV - recovery collector: PONV - recovery collector Female No 07/02/24 08:40 HX of Motion Sickness No 07/02/24 08:40 HX of N/V After Surgery No 07/02/24 08:40 Non-Smoker Yes 07/02/24 08:40 Duration of Surgery greater No 07/02/24 08:40 than 60 minutes Number of Risk Factors 1 07/02/24 08:40 PONV Score Low Risk 07/02/24 08:40 Height & Weight Height & Weight: Anesthesia: Height & Weight Height 5 ft 9 in 07/05/24 06:41 Weight: 96 kg 07/05/24 06:41 Body Mass Index (BMI) 31.2 07/05/24 06:41 Respiratory Assessment Respiratory Assessment - recovery collector: Respiratory Tract Infection Hx - recovery collector Hx Respiratory Tract Infection No 07/02/24 08:40 STOP Sleep Apnea STOP Sleep Apnea - recovery collector: STOP Sleep Apnea - recovery collector Hx Hypertension No 07/02/24 08:40 Hx Sleep Apnea No 07/02/24 08:40 CPAP BIPAP Do you snore loudly (louder No 07/02/24 08:40 than talking or can be heard Do you often feel tired/ Yes 07/02/24 08:40 fatigued/ sleepy during daytime? Has anyone observed you stop No 07/02/24 08:40 breathing during sleep? STOP Results Negative 07/02/24 08:40 QUESTION #5 FULL TEXT : Do you snore loudly (louder than talking or can be heard through closed doors)? 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 Specify any problems Hx of Preganancy in last 3 N/A 07/02/24 08:40 Months Nurse Filling Out Transfusion DSCHRIBER 07/02/24 08:40 & Questions: Date: 07/02/24 07/02/24 08:40 Time: 08:42 07/02/24 08:40 Patient unable to answer at this time (ie. confused, unrespo /Reproduction History /Reproductive History - recovery collector: /Reproductive Hx- recovery collector Hx Now No 07/02/24 08:40 Gestational Age (in weeks): EDC: Hx Hx Para Hx Section SAB No 07/02/24 08:40 PFSH Medical History Bladder disease Depression Arthritis Prostate disease Migraine headache Non-smoker History of echocardiogram History of BPH History of hiatal hernia Barretts esophagus Loss of hearing Wears contact lenses High cholesterol Pulmonary embolism DVT (deep venous thrombosis) Back pain Restless legs Gastric reflux History of edema History of stress test Cardiology follow-up encounter Hyperlipidemia Home Medications ?Medication ?Instructions ?Recorded ?Last Taken ?Type lovastatin 20 mg tablet 20 mg PO QHS 10/18/16 07/04/24 History tamsulosin 0.4 mg capsule 0.4 mg PO QHS 12/12/18 07/04/24 History escitalopram oxalate 20 mg tablet 20 mg PO QHS 05/26/22 07/04/24 History ropinirole 1 mg tablet 1 mg PO QHS 05/26/22 07/04/24 History famotidine 20 mg tablet (Pepcid) 20 mg PO DAILY #60 tabs 07/19/22 07/05/24 Rx Allergy/AdvReac Type Severity Reaction Status Date / Time No Known Allergies Allergy Verified 07/05/24 06:39 Family History Father Bladder cancer Colon cancer Skin cancer Hypertension Prostate cancer Sister Hypertension Acute glaucoma Sister Diabetes Mother Anxiety and depression Mother committed suicide when the patient was 18 years of age. Surgical History Hx of colonoscopy History of skin surgery History of ankle surgery Status post laparoscopic Elmer fundoplication History of esophagogastroduodenoscopy (EGD) H/O lumbosacral spine surgery Social History household members: spouse housing: house number of children: 4 current occupational status: employed Smoking Status: Never smoker alcohol intake: never what type of physical activity do you participate in: none seatbelt use: always do you feel safe at home: Yes Review of Systems (Anesthesia) ROS Narrative System reviewed and no additional complaints, except as documented.
--- NOTE | 2024-07-05 07:00 | PCM.HP.BLA ---
History and Physical Date of Admission: 07/05/24 Intake Vital Signs 06/20/2206:25 05/22/2413:30 Height 5 ft 9 in 5 ft 9 in Weight: 213 lb BMI 31.4 BP 144/90 H Blood Pressure Location Rt brachial Position Sitting Respiration 18 Intake Visit Reasons: EGD RECALL, RC Chief Complaint: EGD recall Mess Attendant Crew Required: No Is patient in pain?: No Allergies No Known Allergies Allergy (Verified 05/22/24 13:30) Medications ?Medication ?Instructions ?Recorded ?Confirmed ?Type lovastatin 20 mg tablet 20 mg PO DAILY 10/18/16 05/22/24 History tamsulosin 0.4 mg capsule 0.4 mg PO DAILY 12/12/18 05/22/24 History escitalopram oxalate 20 mg tablet 20 mg PO DAILY 05/26/22 05/22/24 History ropinirole 1 mg tablet 1 mg PO DAILY 05/26/22 05/22/24 History famotidine 20 mg tablet (Pepcid) 20 mg PO DAILY #60 tabs 07/19/22 05/22/24 Rx Have you fallen in the past year?: No PFSH Medical History History of hiatal hernia Barretts esophagus Loss of hearing Wears contact lenses Depression Anxiety High cholesterol Pulmonary embolism DVT (deep venous thrombosis) Back pain Headache Restless legs Gastric reflux Non-smoker Leg cramps History of edema History of stress test Cardiology follow-up encounter Hyperlipidemia HTN (hypertension) h/o skin cancer removal H/o left ankle surgery Surgical History Status post laparoscopic Elmer fundoplication History of esophagogastroduodenoscopy (EGD) H/O lumbosacral spine surgery Family History Father Bladder cancer Colon cancer Skin cancer HypertensionSister Hypertension Acute glaucomaSister Diabetes Social History household members: spouse housing: house number of children: 4 current occupational status: employed Smoking Status: Never smoker alcohol intake: never what type of physical activity do you participate in: none seatbelt use: always do you feel safe at home: Yes HPI HPI HPI: Patient is a 68-year-old male here for surveillance EGD. The patient has a history of Cui's esophagus and had his last EGD in 2020. He does not report any symptoms at this time. ROS General General: No weight change, appetite, fatigue, colon cancer, breast cancer or weakness HEENT HEENT: No difficulty swallowing, eye injury, eye surgery, swollen glands or hoarseness Endo Endocrine: No thyroid disease, diabetes mellitus, thyroid cancer, Hair loss, heat intolerance or cold intolerance Skin Skin: Yes changing moles; No rash Breast Breast: No left breast lump, right breast lump, nipple discharge, breast pain, abnormal mammogram, abnormal US or breast enlargement Musc Musculoskeletal: Yes back problems and arthritis; No rheumatoid arthritis, gout or joint pain Cardio Cardiovascular: No murmur, pacemaker, heart disease, atrial fibrillation, high blood pressure, heart attack, heart stent, palpitations, shortness of breat with exertion or chest pain Psych Psychiatric: Yes depression and anxiety; No hearing voices Resp Respiratory: No shortness of breath, No sleep apnea, No cough, No COPD, No asthma, No emphysema and No wheezing Gastro Gastrointestinal: No abdominal pain, No nausea or vomiting, No diarrhea, No constipation, No blood in stool, No acid reflux, Yes hemorrhoids, No ulcers, No gallbladder problem and No black,tarry stools Smith Hematologic: No blood thinners, No blood disorders, No bleeding, No anemia and Yes blood clots Neuro Neurologic: No system reviewed and no additional complaints, except as documented, No as per HPI, No abnormal gait, No abnormal hearing, No abnormal movements, No abnormal speech, No behavioral changes, No burning sensations, No confusion, No convulsions, No disequilibrium, No dizziness, No localized weakness, No frequent falls, No headache(s), No lack of coordination, No loss of vision, No memory loss, Yes numbness, No other visual disturbances, No radicular pain, No restless legs, No sensory deficit, No syncope, Yes tingling, No tremor(s), No weakness and No other Exam Const General: cooperative Orientation: alert and oriented x3 HENMT Head: normal to inspection Neck Neck: normal visual inspection and full ROM Chest Chest palpation & inspection: normal inspection of the chest Resp Effort & Inspection: normal respiratory effort Auscultation: clear to auscultation bilaterally Cardio Rate: regular rate Rhythm: regular rhythm GI Inspection: non-distended Palpation: soft and nontender Skin General: no rashes or lesions noted Neuro General: patient alert and patient oriented x3 Extrem General: full ROM Psych Appearance: grossly normal Mental Status: mental status grossly normal Assessment and Plan Assessment and Plan (1) Barretts esophagus: Status: Acute Qualifiers: Cui's esophagus type: without dysplasia Qualified Code(s): K22.70 - Cui's esophagus without dysplasia Plan: The patient has Cui's esophagus with no dysplasia and he is due for surveillance EGD. I explained endoscopy in detail to the patient. I explained the risks including but not limited to stroke or heart attack with anesthesia, perforation of the GI tract, bleeding, infection. I explained that any of these could necessitate further emergency surgery. The patient understands and all questions were answered sufficiently. The patient wishes to proceed with procedure. Madhu Pedraza MD Pager: [facility] [address] [place] [address], [address] [place] [address] Office: I have seen and reexamined the patient and reviewed the H&P. THere are no changes
--- NOTE | 2024-07-05 07:53 | OP.EGD_ITS ---
Patient Name: Dom Dorsey Procedure Date: 07/05/2024 7:37 AM Date of : 1955 Age: 68 Procedure: Upper GI endoscopy Indications: Surveillance for malignancy due to personal history of Cui's esophagus Providers: Madhu Pedraza MD Referring MD: Angelita Raphael Medicines: Propofol per Anesthesia Patient Profile: This is a 68 year old male. Refer to note in patient chart for documentation of history and physical. Complications: No immediate complications. Estimated blood loss: Minimal. Procedure: Pre-Anesthesia Assessment: - Prior to the procedure, a History and Physical was performed, and patient medications and allergies were reviewed. The patient's tolerance of previous anesthesia was also reviewed. The risks and benefits of the procedure and the sedation options and risks were discussed with the patient. All questions were answered, and informed consent was obtained. Prior Anticoagulants: The patient has taken no anticoagulant or antiplatelet agents. After reviewing the risks and benefits, the patient was deemed in satisfactory condition to undergo the procedure. After obtaining informed consent, the endoscope was passed under direct vision. Throughout the procedure, the patient's blood pressure, pulse, and oxygen saturations were monitored continuously. The gastroscope was introduced through the mouth, and advanced to the fourth part of duodenum. The upper GI endoscopy was accomplished without difficulty. The patient tolerated the procedure well. Scope In: 7:47:10 AM Scope Out: 7:50:06 AM Total Procedure Duration Time 0 hours 2 minutes 56 seconds Findings: There were esophageal mucosal changes secondary to established short-segment Cui's disease present at the gastroesophageal junction. Mucosa was biopsied with a cold forceps for histology. One specimen bottle was sent to pathology. The stomach was normal. The examined duodenum was normal. Impression: - Esophageal mucosal changes secondary to established short-segment Cui's disease. Biopsied. - Normal stomach. - Normal examined duodenum. Recommendation: - Discharge patient to home. - Resume previous diet. - Continue present medications. - Await pathology results. - Repeat upper endoscopy in 3 years for surveillance. Procedure Code(s): --- Professional --- 67540, Esophagogastroduodenoscopy, flexible, transoral; with biopsy, single or multiple Diagnosis Code(s): --- Professional --- K22.70, Cui's esophagus without dysplasia CPT copyright 2021 [employer]. All rights reserved. The codes documented in this report are preliminary and upon wire galvanizer review may be revised to meet current compliance requirements. Madhu Pedraza MD 07/05/2024 7:52:43 AM This report has been signed electronically. Number of Addenda: 0 Note Initiated On: 07/05/2024 7:37 AM
--- NOTE | 2024-07-05 07:53 | OP.CCLET_ITS ---
07/05/2024 Angelita Raphael Re : Upper GI endoscopy procedure for Dom Chatman Donavon This procedure was performed on Friday, July 05, 2024. My impressions and recommendations are as follows: Impressions : - Esophageal mucosal changes secondary to established short-segment Cui's disease. Biopsied. - Normal stomach. - Normal examined duodenum. Recommendations : - Discharge patient to home. - Resume previous diet. - Continue present medications. - Await pathology results. - Repeat upper endoscopy in 3 years for surveillance. My findings are described in the full procedure note, which is enclosed. If I can be of further assistance, please feel free to contact me at Doctor phone number(s): , Work: . Sincerely, Madhu Pedraza MD 07/05/2024 7:52:43 AM This report has been signed electronically.
--- NOTE | 2024-07-05 08:00 | PCM.POST.ANE ---
Anesthesia: Postop Eval I Current Vital Signs Temperature: 97.1 F Pulse Rate: 62 Blood Pressure: 101/70 Respiratory Rate: 16 Pulse Ox: 95 Oxygen Delivery Method: Room Air Assessment Airway patent: Yes Spontaneous unlabored respirations: Yes Mental status: Asleep nausea: No Vomiting: No Anesthesia Complication: No Fluid Hydration Crystalloid volume administer (ml): 20 Total IV fluid infused: 20 Progress Note Anesthesia document: Postop Eval 1 completed: Yes
--- NOTE | 2024-07-05 09:29 | PCM.POSTANE2 ---
Anesthesia Postop Eval I Sum Postop Eval Completion status Anesthesia document: Postop Eval 1 completed: Yes Anesthesia Postop Eval I Summary Anesthesia Postop Eval I Summary: Anesthesia Postop Eval I: Assessment Summary Airway patent Yes 07/05/24 08:01 [email or web address] Spontaneous unlabored Yes 07/05/24 08:01 [email or web address] respirations Mental status Asleep 07/05/24 08:01 [email or web address] nausea No 07/05/24 08:01 [email or web address] Vomiting No 07/05/24 08:01 [email or web address] Anesthesia Postop Eval I: Fluid Summary Crystalloid volume administer 20 07/05/24 08:01 [email or web address] (ml) Colloids volume administered ( ml) Blood Product volume administered (ml) Total IV fluid infused 20 07/05/24 08:01 [email or web address] Anesthesia Postop Eval I: Summary Notes Anesthesia Complication No 07/05/24 08:01 [email or web address] Anesthesia Complication Comment: Post-operative progress note Anesthesia: Postop Eval II Evaluation Mental status: Awake Pain Level: 0 nausea: No Vomiting: No
== END 2024-07-05 08:32 | disposition home or self-care (01) ==
LOC: EN 06:25 → AC 06:26
PROVIDERS: PCP Physician Assistant; Referring Provider Physician Assistant; Visit Provider Surgery
PROC: 0DJ08ZZ Inspection of Upper Intestinal Tract, Via Natural or Artificial Opening Endoscopic (ICD-10-PCS; CPT 43235; principal; 2024-07-05 07:25)
DX: K22.70 Barrett's esophagus without dysplasia (principal); I10 Essential (primary) hypertension; E78.00 Pure hypercholesterolemia, unspecified; K21.9 Gastro-esophageal reflux disease without esophagitis; Z79.899 Other long term (current) drug therapy; G25.81 Restless legs syndrome; F32.A Depression, unspecified; F41.9 Anxiety disorder, unspecified; Z85.828 Personal history of other malignant neoplasm of skin
CPT/HCPCS: 43239; 88305; 88312; 88341; 88342; A4216; J2405

== ENCOUNTER → 2024-10-17 | Outpatient (CLI) | payer OTHER, SELFPAY ==
--- NOTE | 2024-10-17 17:34 | CT_ITS ---
PROCEDURE: CHEST WITHOUT CONTRAST 10/17/2024 REASON FOR EXAM: H/O LUNG NODULES TECHNIQUE: Chest CT without contrast. Coronal and Sagittal reconstruction series were provided. One or more dose reduction techniques were used (e.g., Automated exposure control, adjustment of the mA and/or kV according to patient size, use of iterative reconstruction technique RADIATION DOSE SUMMARY: CTDlvol: 16.3 mGy DLP: 615.5 mGycm COMPARISON: None available FINDINGS: Hardware: None available Lymph nodes: Calcified right hilar lymph node. Heart and Vasculature: The heart is normal in size. The great vessels are normal in size and caliber. No pericardial effusion. Coronary Artery Calcifications: Present Lungs and Airways: Central airways are patent. Several lucent lesions of varying sizes present throughout the bilateral lungs. Several less than 5 mm pulmonary nodules present throughout the bilateral lungs (image 75, 79, 76, 67, 57, 60, 92, 97, 98). Pleura: No pleural effusion or pneumothorax. Upper Abdomen: Calcified granulomas within the spleen, likely granulomatous disease. Scattered hypodensity throughout the liver, too small to adequately characterize, likely representing small cysts. Bones: No aggressive osseous lesions. No acute fractures. CT/Chest without Contrast IMPRESSION: *Coronary artery calcification (CAC) is present *Several less than 5 mm pulmonary nodules present throughout the bilateral lung s. *Several lucent lesions of varying sizes are present throughout the bilateral l ungs. *Calcified right hilar lymph node, and scattered calcified granulomas within th e spleen, sequela of chronic granulomatous disease. Reading Location: [facility]
== END | disposition home or self-care (01) ==
LOC: CT 17:28
PROVIDERS: PCP Physician Assistant; Referring Provider Internal Medicine Critical Care Medicine; Visit Provider Internal Medicine Critical Care Medicine
DX: R91.8 Other nonspecific abnormal finding of lung field (principal)
CPT/HCPCS: 71250